=== PATIENT | male | born 1975 | race Hispanic/Latino ===

== ENCOUNTER 2020-02-08 16:55 | Emergency (ER) | payer SELFPAY ==
[2020-02-08 17:48] LABS: Basophils % 0.7 % (0-1.3); Hematocrit 47.8 % (39.6-49.0); Lymphocytes % 37.5 % (15.3-44.8); MPV 10.7 fL (7.6-11.3); RBC Red Blood Cell Count 5.16 M/uL (4.33-5.43)
[2020-02-08] MEDS ORDERED: NA CHLORIDE 0.9% 1,000 ML ONE ×2 (17:53→18:33)
[2020-02-08 17:57] LABS: Urine Blood NEGATIVE (NEG); Urine Glucose 2+ (NEG); Urine Protein NEGATIVE (NEG)
[2020-02-08 18:01] LABS: BUN Blood Urea Nitrogen 15 mg/dL (7-18); Bicarbonate 29 mmol/L (21-32); Potassium 4.3 mmol/L (3.5-5.1); Sodium Level 134 mmol/L (136-145)
[2020-02-08 18:02] LABS: Glucose Level 536 mg/dL (74-106)
[2020-02-08] MEDS ORDERED: INSULIN -REGULAR HUMAN 50 UNIT/0.5 ML ML ONE ×2 (18:34→19:36)
--- NOTE | 2020-02-08 20:52 | ER ---
Nurse's Notes [facility] Name: Kostas Castelan Age: 44 yrs Sex: Male : 1975 Arrival Date: 02/08/2020 Time: 16:58 Bed 20 Private MD: Diagnosis: Type 2 diabetes mellitus with hyperglycemia Presentation: 02/07 16:58 Chief complaint: Patient states: urinary frequency and excessive thirst x 2.5 weeks. Pt ss was seen in clinic today and had bgl >500. Coronavirus screen: The patient has NOT traveled to a country currently being monitored by the [facility] within the last 14 days. Proceed with normal triage procedures. Ebola Screen: Patient denies exposure to infectious person. Patient denies travel to an Ebola-affected area in the 21 days before illness onset. Initial Sepsis Screen: Does the patient meet any 2 criteria? No. Patient's initial sepsis screen is negative. Does the patient have a suspected source of infection? No. Patient's initial sepsis screen is negative. Risk Assessment: Do you want to hurt yourself or someone else? Patient reports no desire to harm self or others. 16:58 Method Of Arrival: Ambulatory ss 16:58 Acuity: ANA MARIA 3 ss 18:51 Onset of symptoms is unknown. ae4 Historical: - Allergies: 17:29 No Known Allergies; ss - Home Meds: 17:29 None [Active]; ss - PMHx: 17:29 None; ss - PSHx: 17:29 None; ss - Immunization history:: Adult Immunizations up to date. - Social history:: Smoking status: Patient denies any tobacco usage or history of. Screenin:50 Abuse screen: Denies threats or abuse. Nutritional screening: No deficits noted. ae4 Provided teaching on diabetic diet.. Tuberculosis screening: No symptoms or risk factors identified. Fall Risk None identified. Assessment: 17:04 General: Appears in no apparent distress. comfortable, Behavior is calm, cooperative. ae4 Pain: Denies pain. Neuro: Level of Consciousness is awake, alert, obeys commands, Oriented to person, place, time, situation, Appropriate for age. Cardiovascular: Heart tones S1 S2 present Patient's skin is warm and dry. Respiratory: Airway is patent Respiratory effort is even, unlabored, Respiratory pattern is regular, symmetrical, Breath sounds are clear bilaterally. GI: Abdomen is round non-distended, Bowel sounds present X 4 quads. Abd is soft and non tender. : Reports urinary frequency. EENT: No signs and/or symptoms were reported regarding the EENT system. Derm: No signs and/or symptoms reported regarding the dermatologic system. Musculoskeletal: No signs and/or symptoms reported regarding the musculoskeletal system. 19:15 Reassessment: Patient appears in no apparent distress at this time. Patient and/or ae4 family updated on plan of care and expected duration. Pain level reassessed. Patient states feeling better. 21:18 Reassessment: Patient appears in no apparent distress at this time. Patient is alert, lp1 oriented x 3, equal unlabored respirations, skin warm/dry/pink. Patient states understanding of discharge instruction and recommended follow up with PCP, list of PCP's given. Vital Signs: 16:58 BP 114 / 86; Pulse 84; Resp 17; Temp 97.4(TE); Pulse Ox 98% on R/A; ss 18:47 BP 133 / 78; Pulse 65; Resp 19; Pulse Ox 97% on R/A; ae4 20:29 BP 104 / 77; Pulse 77; Resp 18; Pulse Ox 99% on R/A; ae4 21:18 BP 119 / 76; Pulse 82; Resp 18; Temp 97.9(O); Pulse Ox 99% on R/A; lp1 ED Course: 16:58 Patient arrived in ED. mr 16:59 Yessenia Appiah [facility]-C [facility] kb 16:59 Jas Cordova MD is Attending Physician. kb 17:28 Triage completed. ss 17:29 Arm band placed on right wrist. ss 17:29 Patient has correct armband on for positive identification. Bed in low position. Call ae4 light in reach. Adult w/ patient. child monitor on. Pulse ox on. NIBP on. 17:30 Brendan Mello, LEFTY is Primary Nurse. ae4 21:19 No provider procedures requiring assistance completed. 20g IV to R AC DC'd. lp1 Administered Medications: 17:50 Drug: NS 0.9% 1000 ml Route: IV; Rate: 1000 ml; Site: right antecubital; ae4 18:30 Follow up: IV Status: Completed infusion; IV Intake: 1000ml ae4 18:30 Drug: Insulin Regular Human 5 units {Co-Signature: ss (Natividad Kearney RN).} Route: IVP; ae4 Site: right antecubital; 19:25 Follow up: Response: Blood sugar is lowered; 465 ae4 18:30 Drug: NS 0.9% 1000 ml Route: IV; Rate: 1000 ml; Site: right antecubital; ae4 19:15 Follow up: IV Status: Completed infusion; IV Intake: 1000ml ae4 19:34 Drug: Insulin Regular Human 5 units {Co-Signature: lp1 (Mana Perdomo RN).} Route: IVP; ae4 Site: right antecubital; 20:29 Follow up: Response: Blood sugar is lowered; FSBS 260 ae4 Point of Care Testing: Blood Glucose: 19:07 Blood Glucose: 465 mg/dL; ae4 20:29 Blood Glucose: 260 mg/dL; ae4 Ranges: Intake: 18:30 IV: 1000ml; Total: 1000ml. ae4 19:15 IV: 1000ml; Total: 2000ml. ae4 Outcome: 20:52 Discharge ordered by . kb 21:19 Discharged to home ambulatory, with family. lp1 21:19 Condition: good 21:19 Discharge instructions given to patient, Instructed on discharge instructions, follow up and referral plans. medication usage, Demonstrated understanding of instructions, follow-up care, medications, Prescriptions given X 1. 21:20 Patient left the ED. lp1 Signatures: Yessenia Appiah, PRODUCTION CREW SUPERVISOR-C PRODUCTION CREW SUPERVISOR-Neema Silvia Matthew Natividad Kearney RN RN ss Mana Perdomo RN RN lp1 Brendan Mello RN RN ae4 Natividad Kearney RN ss Mana Perdomo RN lp1
--- NOTE | 2020-02-08 20:52 | EDPHYS ---
Physician Documentation [facility] Name: Kostas Castelan Age: 44 yrs Sex: Male : 1975 Arrival Date: 02/08/2020 Time: 16:58 Bed 20 Private MD: ED Physician Jas Cordova HPI: 02/07 17:21 This 44 yrs old Male presents to ER via Unassigned with complaints of Urinary kb Problem. 17:25 The patient presents with urinary symptoms, urinary frequency. Onset: The kb symptoms/episode began/occurred 2.5 week(s) ago. Modifying factors: The symptoms are alleviated by nothing, the symptoms are aggravated by nothing. Associated signs and symptoms: The patient has no apparent associated signs or symptoms, Pertinent negatives: dysuria, fever. Severity of symptoms: At their worst the symptoms were moderate, in the emergency department the symptoms are unchanged. The patient has not experienced similar symptoms in the past. The patient has been recently seen by a physician: at a clinic, earlier today, with similar presenting complaints, and apparently given a diagnosis of hyperglycemia. Pt reports urinary frequency for 2.5 weeks. States he went to the [facility] today and they said his sugar was high and he needed to come to the ER for evaluation. Pt has no history of diabetes, but mother and sister both have it. . Historical: - Allergies: 17:29 No Known Allergies; ss - Home Meds: 17:29 None [Active]; ss - PMHx: 17:29 None; ss - PSHx: 17:29 None; ss - Immunization history:: Adult Immunizations up to date. - Social history:: Smoking status: Patient denies any tobacco usage or history of. ROS: 17:24 Constitutional: Negative for fever, chills, and weight loss, ENT: Negative for injury, kb pain, and discharge, Neck: Negative for injury, pain, and swelling, Cardiovascular: Negative for chest pain, palpitations, and edema, Respiratory: Negative for shortness of breath, cough, wheezing, and pleuritic chest pain, Abdomen/GI: Negative for abdominal pain, nausea, vomiting, diarrhea, and constipation, Back: Negative for injury and pain, MS/Extremity: Negative for injury and deformity, Skin: Negative for injury, rash, and discoloration, Neuro: Negative for headache, weakness, numbness, tingling, and seizure. 17:24 : Positive for urinary frequency. Exam: 17:24 Constitutional: This is a well developed, well nourished patient who is awake, alert, kb and in no acute distress. Head/Face: Normocephalic, atraumatic. Neck: Trachea midline, no thyromegaly or masses palpated, and no cervical lymphadenopathy. Supple, full range of motion without nuchal rigidity, or vertebral point tenderness. No Meningismus. Chest/axilla: Normal chest wall appearance and motion. Nontender with no deformity. No lesions are appreciated. Cardiovascular: Regular rate and rhythm with a normal S1 and S2. No gallops, murmurs, or rubs. Normal PMI, no JVD. No pulse deficits. Respiratory: Lungs have equal breath sounds bilaterally, clear to auscultation and percussion. No rales, rhonchi or wheezes noted. No increased work of breathing, no retractions or nasal flaring. Abdomen/GI: Soft, non-tender, with normal bowel sounds. No distension or tympany. No guarding or rebound. No evidence of tenderness throughout. Skin: Warm, dry with normal turgor. Normal color with no rashes, no lesions, and no evidence of cellulitis. MS/ Extremity: Pulses equal, no cyanosis. Neurovascular intact. Full, normal range of motion. Neuro: Awake and alert, GCS 15, oriented to person, place, time, and situation. Cranial nerves II-XII grossly intact. Motor strength 5/5 in all extremities. Sensory grossly intact. Cerebellar exam normal. Normal gait. 18:45 ECG was reviewed by the Attending Physician. kb Vital Signs: 16:58 BP 114 / 86; Pulse 84; Resp 17; Temp 97.4(TE); Pulse Ox 98% on R/A; ss 18:47 BP 133 / 78; Pulse 65; Resp 19; Pulse Ox 97% on R/A; ae4 20:29 BP 104 / 77; Pulse 77; Resp 18; Pulse Ox 99% on R/A; ae4 21:18 BP 119 / 76; Pulse 82; Resp 18; Temp 97.9(O); Pulse Ox 99% on R/A; lp1 MDM: 17:04 Patient medically screened. kb 17:24 Data reviewed: vital signs, nurses notes. Data interpreted: Pulse oximetry: on room air kb is 100 %. Interpretation: normal. 20:49 Counseling: I had a detailed discussion with the patient and/or guardian regarding: the kb historical points, exam findings, and any diagnostic results supporting the discharge/admit diagnosis, lab results, the need for outpatient follow up, a family practitioner, to return to the emergency department if symptoms worsen or persist or if there are any questions or concerns that arise at home. 02/07 17:24 Order name: Glucose, Ancillary Testing; Complete Time: 17:27 EDMS 02/07 17:28 Order name: CBC with Diff; Complete Time: 17:55 kb 02/07 17:28 Order name: Basic Metabolic Panel; Complete Time: 18:05 kb 02/07 17:28 Order name: Acetone, Serum; Complete Time: 18:05 kb 02/07 17:47 Order name: Urine Dipstick--Ancillary (enter results); Complete Time: 17:57 eb 02/07 17:30 Order name: EKG; Complete Time: 17:30 kb 02/07 18:05 Order name: Hemoglobin A1c; Complete Time: 18:32 EDMS 02/07 19:19 Order name: Glucose, Ancillary Testing; Complete Time: 19:22 EDMS 02/07 20:40 Order name: Glucose, Ancillary Testing EDNC 02/07 17:28 Order name: IV Start; Complete Time: 17:31 kb 02/07 17:28 Order name: Urine Dipstick-Ancillary (obtain specimen); Complete Time: 17:58 kb 02/07 17:30 Order name: EKG - Nurse/Tech; Complete Time: 18:41 kb EC:45 Rate is 59 beats/min. Rhythm is regular. QRS [place] is Normal. [place] interval is normal at kb 150 msec. QRS interval is normal at 86 msec. QT interval is normal at 392 msec. Administered Medications: 17:50 Drug: NS 0.9% 1000 ml Route: IV; Rate: 1000 ml; Site: right antecubital; ae4 18:30 Follow up: IV Status: Completed infusion; IV Intake: 1000ml ae4 18:30 Drug: Insulin Regular Human 5 units {Co-Signature: ss (Natividad Kearney RN).} Route: IVP; ae4 Site: right antecubital; 19:25 Follow up: Response: Blood sugar is lowered; 465 ae4 18:30 Drug: NS 0.9% 1000 ml Route: IV; Rate: 1000 ml; Site: right antecubital; ae4 19:15 Follow up: IV Status: Completed infusion; IV Intake: 1000ml ae4 19:34 Drug: Insulin Regular Human 5 units {Co-Signature: lp1 (Mana Perdomo RN).} Route: IVP; ae4 Site: right antecubital; 20:29 Follow up: Response: Blood sugar is lowered; FSBS 260 ae4 Point of Care Testing: Blood Glucose: 19:07 Blood Glucose: 465 mg/dL; ae4 20:29 Blood Glucose: 260 mg/dL; ae4 Ranges: Critical Glucose Levels:Adult <50 mg/dl or >400 mg/dl <40 mg/dl or >180 mg/dl Disposition: 02/08/20 20:52 Discharged to Home. Impression: Type 2 diabetes mellitus with hyperglycemia. - Condition is Stable. - Discharge Instructions: Type 2 Diabetes Mellitus, Diagnosis, Adult, Basic Carbohydrate Counting for Diabetes Mellitus, Diabetes Mellitus and Food. - Prescriptions for Metformin 500 mg Oral Tablet - take 1 tablet by ORAL route 2 times per day .; 40 tablet. - Medication Reconciliation Form, Thank You Letter, Antibiotic Education, Prescription Opioid Use form. - Work release form (02/09/20 12:08). ss - Follow up: Emergency Department; When: As needed; Reason: Worsening of condition. Follow up: Private Physician; When: 2 - 3 days; Reason: Recheck today's complaints, Continuance of care, Re-evaluation by your physician. Addendum: 02/11/2020 10:51 Co-signature as Attending Physician, Jas Cordova MD I agree with the assessment and k dr plan of care. Signatures: Dispatcher [employer] EDNC Yessenia Appiah, SERVER SYSTEMS ADMINISTRATOR-C SERVER SYSTEMS ADMINISTRATOR-Jas Laguna MD MD kdr Smirch, [place], LEFTY RN ss Mana Perdomo, LEFTY RN lp1 Brendan Mello RN RN ae4 Natividad Kearney RN ss Mana Perdomo RN lp1 Corrections: (The following items were deleted from the chart) 02/07 17:57 17:56 HEMOGLOBIN A1C+CHEM A1C.LAB.BRZ ordered. [facility] 21:20 20:52 02/08/2020 20:52 Discharged to Home. Impression: Type 2 diabetes mellitus with lp1 hyperglycemia. Condition is Stable. Forms are Medication Reconciliation Form, Thank You Letter, Antibiotic Education, Prescription Opioid Use. Follow up: Emergency Department; When: As needed; Reason: Worsening of condition. Follow up: Private Physician; When: 2 - 3 days; Reason: Recheck today's complaints, Continuance of care, Re-evaluation by your physician. kb
[2020-02-08 21:32] VITALS: O2SAT 99
[2020-02-08 21:34] VITALS: BP 119/76; TEMP 97.9
--- NOTE | 2020-02-10 09:15 | EKG ---
Test Date: 2020-02-08 Test Time: 18:24:34 Hadoop Application Developer: JAKE MEASUREMENT RESULTS: Intervals: Rate: 59 [place]: 150 QRSD: 86 QT: 392 QTc: 388 [place]: P: 25 [place]: 150 QRS: 61 T: 25 INTERPRETIVE STATEMENTS: Sinus bradycardia Otherwise normal ECG Compared to ECG 05/25/2010 13:11:22 Sinus tachycardia no longer present Electronically Signed On 02-10-20 09:13:36 CDT by Jairo Lopez
== END 2020-02-08 21:20 | disposition home or self-care (01) ==
LOC: ER 16:55
DX: E11.65 Type 2 diabetes mellitus with hyperglycemia (principal)
CPT/HCPCS: 36415; 80048; 81003; 82010; 82947; 83036; 85025; 93005; 96361; 96374; 99284; J7030

== ENCOUNTER 2024-11-23 07:25 | Emergency (ER) | payer OTHER ==
--- OUTSIDE RECORDS SUMMARY | 2024-11-23 07:32 | XMS REPORT | Continuity of Care Document ---
Author Name Unknown Address [address] [facility] [address] [place] [address] [facility] thconnect Address [address] [facility] [address] [place] [address] Care Team Providers Care Coke Drawer Hand Name Role Phone Eleonora Reagan Primary Care Physician David Fraser Attending Clinician Unavailable Lenny Noonan Attending Clinician Unavailable Physician, No Primary or Family Admitting Clinic raquel Unavailable Payers Payer Name Policy Type Policy Number Effective Date Expirati on Date Source Problems Condition Name Condition Details Condition Category Status Onset Date Resolution Date Last Treatment Date Treating Clinician Comments Source [id number] Testicular hypofuncti on Problem [facility] [id number] Posthitis Problem Commo n [facility] [id number] Phimosis of penis Problem [facility] [id number] ED (erectile dysfunctio n) of organic origin Problem [facility] [id number] Acquired phimosis of penis Problem [facility] Allergies, Adverse Reactions, Alerts Allergy Name Allergy Type Status Severity Reaction(s) Onset Date Inactive Date Treating Clinician Comments Source No Known Allergie s DA Active U 08-03 00:00: 00 [facility] No Known Allergie s DA Active U 08-03 00:00: 00 [facility] Social History Social Habit Start Date Stop Date Quantity Comments Source History of Tobacco Use [facility] Sex Assigned At [facility] Smoking Status Start Date Stop Date Source Never Smoker [facility] Medications Ordered Medication Name Filled Medication Name Start Date Stop Date Current Medication? Ordering Clinician Indication Dosage Frequency Signature (SIG) Comments Components Source triamcinolo ne acetonide 0.1 % topical cream 2023-11 00:00: 00 Yes 1% Yuri Klein aspirin 81 mg tablet,monica yed release 2023-11 00:00: 00 Yes 1mg Yuri Klein metformin 1,000 mg tablet 2023-11 00:00: 00 Yes mg Yuri Klein Januvia 100 mg tablet 2023-11 00:00: 00 Yes 1mg Yuri Klein Jardiance 10 mg tablet 2023-11 00:00: 00 Yes 1mg Yuri Klein rosuvastati n 20 mg tablet 2023-11 00:00: 00 Yes 1mg Yuri Klein Januvia 100 mg tablet 2023-11 0 00:00: 00 Yes 1mg Yuri Klein glipizide 10 mg tablet 2023-11 0- 00:00: 00 Yes 1mg Yuri Klein metformin 1,000 mg tablet 2023-11 0- 00:00: 00 Yes 1mg Yuri Klein rosuvastati n 20 mg tablet 2023-11 0- 00:00: 00 Yes 1mg Yuri Klein Januvia 100 mg tablet 08-02 00:00: 00 Yes 1mg Yuri Klein glipizide 10 mg tablet 08-02 00:00: 00 Yes 1mg Yuri Klein metformin 1,000 mg tablet 08-02 00:00: 00 Yes 1mg Yuri Klein prednisone 10 mg tablet -04 00:00: 00 Yes 1mg Yuri Klien amoxicillin 875 mg-potassiu m clavulanate 125 mg tablet 05-01 00:00: 00 Yes 1mg Yuri Klein ibuprofen 800 mg tablet 05-01 00:00: 00 Yes 1mg Yuri Klein metformin 1,000 mg tablet 01-25 00:00: 00 Yes mg Yuri Klein Clotrimazol e-Betametha sone 1-0.05 % Clotrimazol e-Betametha sone 1-0.05 % 12-07 00:00: 00 No 1{appli cation} BID Clotrimazo le-Betamet hasone 1-0.05 % TAKE 1 TABLET TWICE DAILY. 2022-11 00:00: 00 Yes 1000 Yuri Klein TAKE 1 TABLET DAILY. 2022-11 00:00: 00 Yes 100 Yuri Klein TAKE 1 TABLET BY MOUTH ONCE DAILY 2022-11 00:00: 00 01-25 00:00 :00 No 25 Yuri Klein TAKE ONE (1) TABLET(S) BY MOUTH TWICE A DAY. 01-21 00:00: 00 Yes Yuri Klein TAKE ONE (1) TABLET(S) BY MOUTH DAILY. 01-21 00:00: 00 Yes Yuri Klein Dose Unknown 2020-11 0 00:00: 00 Yes Yuri Klein Dose Unknown 08-14 00:00: 00 Yes Yuri Klein Dose Unknown 08-14 00:00: 00 Yes Yuri Klein metformin 500 mg tablet 12-26 00:00: 00 Yes 1mg Yuri Klein glipizide 5 mg tablet 12-26 00:00: 00 Yes 1mg Yuri Klein ibuprofen 800 mg tablet 12-26 00:00: 00 Yes 1mg Yuri Klein bupropion HCl XL 150 mg 24 hr tablet, extended release 08-09 00:00: 00 Yes 1mg Yuri Klein metformin 500 mg tablet 08-09 00:00: 00 Yes 1mg Yuri Klein glipizide 5 mg tablet 08-09 00:00: 00 Yes 1mg Yuri Klein metformin 500 mg tablet 05-08 00:00: 00 Yes 1mg Yuri Klein glipizide 5 mg tablet 05-08 00:00: 00 Yes 1mg Yuri Klein metformin 500 mg tablet 03-27 00:00: 00 Yes 1mg Yuri Klein glipizide 5 mg tablet 03-27 00:00: 00 Yes 1mg Yuri Klein glipizide 5 mg tablet 02-13 00:00: 00 Yes 1mg Yuri Klein simvastatin 20 mg tablet 08-04 00:00: 00 Yes 1mg Yuri Klein pantoprazol e 40 mg tablet,monica yed release 08-02 00:00: 00 Yes 1mg Yuri Klein clarithromy rossy 500 mg tablet 08-02 00:00: 00 Yes 1mg Yuri Klein metronidazo le 500 mg tablet 08-02 00:00: 00 Yes 1mg Yuri Klein pravastatin 20 mg tablet 04-12 00:00: 00 Yes 1mg Yuri Klein Prozac 20 mg capsule 2014-11 00:00: 00 Yes 1mg Yuri Klein metFORMIN HCl 500 MG metFORMIN HCl 500 MG No 1{table t_with_ a_meal} QD metFORMIN HCl 500 MG Immunizations Ordered Immunization Name Filled Immunization Name Date Status Comments Source Moderna COVID-19 Vaccine Moderna COVID-19 Vaccine 2022-06-22 00:00:00 Completed Yuri Klein Moderna COVID-19 Vaccine Moderna COVID-19 Vaccine 2021-03-17 00:00:00 Completed Yuri Klein Moderna COVID-19 Vaccine Moderna COVID-19 Vaccine 2021-02-11 00:00:00 Completed Yuri Klein Vital Signs Vital Name Observation Time Observation Value Comments S ource height 2023-12-07 16:45:00 69 [in_i] Commo n [facility] weight 2023-12-07 16:45:00 189.0 [lb_av] Co mmon [facility] temperature 2023-12-07 16:45:00 98.3 [degF] Com mon [facility] bmi 2023-12-07 16:45:00 27.91 kg/m2 Comm on [facility] oximetry 2023-12-07 16:45:00 98 % Commo n [facility] respiratory rate 2023-12-07 16:45:00 18 /min Common [facility] blood pressure systolic 2023-12-07 16:45:00 127 mm[Hg] Common [facility] blood pressure diastolic 2023-12-07 16:45:00 86 mm[Hg] Common [facility] BP Systolic 2024-10-26 10:57:00 125 mm[Hg] Step hen F Ernie BP Diastolic 2024-10-26 10:57:00 87 mm[Hg] [place] phen F Ernie Weight Measured 2024-10-26 10:57:00 186.00 pounds Yuri F Ernie Height Measured 2024-10-26 10:57:00 69.00 inches Yuri F Ernie Body Temperature 2024-10-26 10:57:00 97.00 degrees Yuri F Ernie Heart Rate 2024-10-26 10:57:00 79.00 /min Maria Fernanda en F Ernie Respiratory Rate 2024-10-26 10:57:00 16.00 /min Yuri F Ernie BP Systolic 2024-10-17 09:19:00 114 mm[Hg] Step hen F Ernie BP Diastolic 2024-10-17 09:19:00 69 mm[Hg] [place] phen F Ernie Weight Measured 2024-10-17 09:19:00 182.40 pounds Yuri F Ernie Height Measured 2024-10-17 09:19:00 69.00 inches Yuri F Ernie Body Temperature 2024-10-17 09:19:00 98.20 degrees Yuri F Ernie Heart Rate 2024-10-17 09:19:00 76.00 /min Maria Fernanda en F Renie Respiratory Rate 2024-10-17 09:19:00 18.00 /min Yuri F Ernie BP Systolic 2024-10-11 11:39:00 142 mm[Hg] Step hen F Ernie BP Diastolic 2024-10-11 11:39:00 79 mm[Hg] [place] phen F Ernie Weight Measured 2024-10-11 11:39:00 182.30 pounds Yuri F Ernie Height Measured 2024-10-11 11:39:00 69.00 inches Yuri F Ernie Body Temperature 2024-10-11 11:39:00 98.20 degrees Yuri F Ernie Heart Rate 2024-10-11 11:39:00 80.00 /min Maria Fernanda en F Ernie Respiratory Rate 2024-10-11 11:39:00 16.00 /min Yuri F Ernie BP Systolic 2024-09-28 16:54:00 142 mm[Hg] Step hen F Ernie BP Diastolic 2024-09-28 16:54:00 79 mm[Hg] [place] phen F Ernie Weight Measured 2024-09-28 16:54:00 183.60 pounds Yuri F Ernie Height Measured 2024-09-28 16:54:00 69.00 inches Yuri F Ernie Body Temperature 2024-09-28 16:54:00 98.20 degrees Yuri F Ernie Heart Rate 2024-09-28 16:54:00 80.00 /min Maria Fernanda en F Ernie Respiratory Rate 2024-09-28 16:54:00 16.00 /min Yuri F Ernie BP Systolic 2024-08-31 17:40:00 126 mm[Hg] Step hen F Ernie BP Diastolic 2024-08-31 17:40:00 86 mm[Hg] [place] phen F Ernie Weight Measured 2024-08-31 17:40:00 187.00 pounds Yuri F Ernie Height Measured 2024-08-31 17:40:00 69.00 inches Yuri F Ernie Body Temperature 2024-08-31 17:40:00 97.90 degrees Yuri F Ernie Heart Rate 2024-08-31 17:40:00 76.00 /min Maria Fernanda en F Ernie Respiratory Rate 2024-08-31 17:40:00 18.00 /min Yuri F Ernie BP Systolic 2024-08-02 17:28:00 119 mm[Hg] Step hen F Ernie BP Diastolic 2024-08-02 17:28:00 86 mm[Hg] [place] phen F Ernie Weight Measured 2024-08-02 17:28:00 187.00 pounds Yuri F Ernie Height Measured 2024-08-02 17:28:00 69.00 inches Yuri F Ernie Body Temperature 2024-08-02 17:28:00 98.20 degrees Yuri F Ernie Heart Rate 2024-08-02 17:28:00 82.00 /min Maria Fernanda en F Ernie Respiratory Rate 2024-08-02 17:28:00 18.00 /min Yuri F Ernie Height Measured 2024-05-01 09:07:00 69.00 inches Yuri F Ernie Body Temperature 2024-05-01 09:07:00 97.50 degrees Yuri F Ernie Heart Rate 2024-05-01 09:07:00 98.00 /min Maria Fernanda en F Ernie Respiratory Rate 2024-05-01 09:07:00 18.00 /min Yuri F Ernie BP Systolic 2024-05-01 09:07:00 120 mm[Hg] Step hen F Ernie BP Diastolic 2024-05-01 09:07:00 75 mm[Hg] [place] phen F Ernie Weight Measured 2024-05-01 09:07:00 184.80 pounds Yuri F Ernie BP Systolic 2023-10-28 17:01:00 146 mm[Hg] Step hen F Ernie BP Diastolic 2023-10-28 17:01:00 74 mm[Hg] [place] phen F Ernie Weight Measured 2023-10-28 17:01:00 186.60 pounds Yuri F Ernie Height Measured 2023-10-28 17:01:00 69.00 inches Yuri F Ernie Body Temperature 2023-10-28 17:01:00 98.20 degrees Yuri F Ernie Heart Rate 2023-10-28 17:01:00 82.00 /min Maria Fernanda en F Ernie Respiratory Rate 2023-10-28 17:01:00 18.00 /min Yuri F Ernie BP Systolic 2023-10-17 14:21:00 124 mm[Hg] Step hen F Ernie BP Diastolic 2023-10-17 14:21:00 67 mm[Hg] [place] phen F Ernie Weight Measured 2023-10-17 14:21:00 190.20 pounds Yuri F Ernie Height Measured 2023-10-17 14:21:00 69.00 inches Yuri F Ernie Body Temperature 2023-10-17 14:21:00 98.20 degrees Yuri F Ernie Heart Rate 2023-10-17 14:21:00 99.00 /min Maria Fernanda en F Ernie Respiratory Rate 2023-10-17 14:21:00 19.00 /min Yuri F Ernie BP Systolic 2021-08-14 16:38:00 139 mm[Hg] Step hen F Ernie BP Diastolic 2021-08-14 16:38:00 83 mm[Hg] [place] phen F Ernie Weight Measured 2021-08-14 16:38:00 218.00 pounds Yuri F Ernie Height Measured 2021-08-14 16:38:00 69.00 inches Yuri F Ernie Body Temperature 2021-08-14 16:38:00 98.40 degrees Yuri F Ernie Heart Rate 2021-08-14 16:38:00 74.00 /min Maria Fernanda en F Ernie Respiratory Rate 2021-08-14 16:38:00 Yuri F Ernie BP Systolic 2020-12-26 15:45:00 113 mm[Hg] Step hen F Ernie BP Diastolic 2020-12-26 15:45:00 69 mm[Hg] [place] phen F Ernie Weight Measured 2020-12-26 15:45:00 218.40 pounds Yuri F Ernie Height Measured 2020-12-26 15:45:00 69.00 inches Yuri F Ernie Body Temperature 2020-12-26 15:45:00 98.70 degrees Yuri F Ernie Heart Rate 2020-12-26 15:45:00 75.00 /min Maria Fernanda en F Ernie Respiratory Rate 2020-12-26 15:45:00 Yuri F Ernie BP Systolic 2020-08-09 09:01:00 116 mm[Hg] Step hen F Ernie BP Diastolic 2020-08-09 09:01:00 82 mm[Hg] [place] phen F Ernie Weight Measured 2020-08-09 09:01:00 210.00 pounds Yuri F Ernie Height Measured 2020-08-09 09:01:00 69.00 inches Yuri F Ernie Body Temperature 2020-08-09 09:01:00 98.30 degrees Yuri F Ernie Heart Rate 2020-08-09 09:01:00 80.00 /min Maria Fernanda en F Ernie Respiratory Rate 2020-08-09 09:01:00 18.00 /min Yuri F Ernie BP Systolic 2020-03-27 09:18:00 110 mm[Hg] Step hen F Ernie BP Diastolic 2020-03-27 09:18:00 72 mm[Hg] [place] phen F Ernie Weight Measured 2020-03-27 09:18:00 210.60 pounds Yuri F Ernie Height Measured 2020-03-27 09:18:00 69.00 inches Yuri F Ernie Body Temperature 2020-03-27 09:18:00 98.60 degrees Yuri F Ernie Heart Rate 2020-03-27 09:18:00 69.00 /min Maria Fernanda en F Ernie Respiratory Rate 2020-03-27 09:18:00 17.00 /min Yuri F Ernie BP Systolic 2020-02-14 16:11:00 119 mm[Hg] Step hen F Ernie BP Diastolic 2020-02-14 16:11:00 82 mm[Hg] [place] phen F Ernie Weight Measured 2020-02-14 16:11:00 210.60 pounds Yuri F Ernie Height Measured 2020-02-14 16:11:00 69.00 inches Yuri F Ernie Body Temperature 2020-02-14 16:11:00 97.80 degrees Yuri F Ernie Heart Rate 2020-02-14 16:11:00 78.00 /min Maria Fernanda en F Ernie Respiratory Rate 2020-02-14 16:11:00 16.00 /min Yuri F Ernie BP Systolic 2020-02-08 14:17:00 116 mm[Hg] Step hen F Ernie BP Diastolic 2020-02-08 14:17:00 77 mm[Hg] [place] phen F Ernie Weight Measured 2020-02-08 14:17:00 210.40 pounds Yuri F Ernie Height Measured 2020-02-08 14:17:00 69.00 inches Yuri F Ernie Body Temperature 2020-02-08 14:17:00 98.90 degrees Yuri F Ernie Heart Rate 2020-02-08 14:17:00 87.00 /min Maria Fernanda en F Ernie Respiratory Rate 2020-02-08 14:17:00 16.00 /min Yuri F Ernie BP Systolic 2018-08-02 13:11:00 129 mm[Hg] Step hen F Ernie BP Diastolic 2018-08-02 13:11:00 85 mm[Hg] [place] phen F Ernie Weight Measured 2018-08-02 13:11:00 219.20 pounds Yuri F Ernie Height Measured 2018-08-02 13:11:00 69.00 inches Yuri F Ernie Body Temperature 2018-08-02 13:11:00 98.30 degrees Yuri Klein Heart Rate 2018-08-02 13:11:00 74.00 /min Maria Fernanda Klein Respiratory Rate 2018-08-02 13:11:00 16.00 /min Yuri Klein Procedures Procedure Date / Time Performed Performing Clinicia n Source [id number] Ecg Routine Ecg W/least 12 Lds W/i r 2018-08-02 00:00:00 Yuri Klein Ecg Routine Ecg W/least 12 Lds W/i r 2015-05-07 00:00:00 Yuri Klein Ecg Routine Ecg W/least 12 Lds W/i r 2015-04-29 00:00:00 Yuri Klein Encounters Start Date/Time End Date/Time Encounter Type Admission Type Attending [facility] Care Department Encounter ID Source 2023-12-07 16:31:00 Outpatient David Fraser [facility] [id number] [facility] 2022-07-30 08:36:02 Outpatient David Fraser [facility] [id number] [facility] 2024-10-26 10:46:24 2024-10-26 10:46:24 Outpatient [facility] [id number] Yuri Klein 2024-10-26 00:00:00 2024-10-26 00:00:00 Outpatient Visit [facility] [id number] Yuri Klein 2024-10-17 09:06:34 2024-10-17 09:06:34 Outpatient [facility] [id number] Yuri Klein 2024-10-17 00:00:00 2024-10-17 00:00:00 Outpatient Visit [facility] [id number] Yuri Klein 2024-09-28 17:01:21 2024-09-28 17:01:21 Outpatient [facility] [id number] Yuri Klein 2024-09-28 00:00:00 2024-09-28 00:00:00 Outpatient Visit [facility] [id number] Yuri Klein 2024-08-31 17:34:52 2024-08-31 17:34:52 Outpatient SFA [facility] [id number] Yuri Klein 2024-08-31 00:00:00 2024-08-31 00:00:00 Outpatient Visit [facility] [id number] Yuri Klein 2024-08-02 17:22:46 2024-08-02 17:22:46 Outpatient SFA [facility] [id number] Yuri Klein 2024-05-01 09:06:38 2024-05-01 09:06:38 Outpatient SFA [facility] [id number] Yuri Klein 2024-05-01 00:00:00 2024-05-01 00:00:00 Outpatient Visit [facility] [id number] Yuri Klein 2023-12-07 00:00:00 2023-12-07 00:00:00 OFFICE VISIT ESTAB PT LEVEL 4 [facility] [id number] [facility] 2023-11-18 14:05:30 2023-11-18 14:05:30 Outpatient SFA [facility] [id number] Yuri Klein 2023-10-28 16:34:57 2023-10-28 16:34:57 Outpatient SFA [facility] [id number] Yuri Klein 2023-10-24 11:50:29 2023-10-24 11:50:29 Outpatient SFA [facility] [id number] Yuri Klein 2023-10-17 14:09:26 2023-10-17 14:09:26 Outpatient SFA [facility] [id number] Yuri Klein 2022-04-14 11:49:00 2022-04-14 16:15:00 Emergency EM Lenny Noonan [facility] [id number] [facility] 2022-04-14 11:49:00 2022-04-14 16:15:00 Emergency EM Lenny Noonan [facility] [id number] [facility] Results Test Description Test Time Test Comments Results Result Co mments Source Yuri KleinCBC W/AUTO [id number] 00:00:00* Test Item Value Reference Range Interpretation Comme nts WBC (test code = 1001) 5.0 K/UL RBC (test code = 1002) 5.71 M/UL HEMOGLOBIN (test code = 1003) 17.3 G/DL HEMATOCRIT (test code = 1004) 52.2 % MCV (test code = 1005) 91.4 fL MCH (test code = 1006) 30.3 PG MCHC (test code = 1007) 33.1 G/DL RDW (test code = 1038) 12.4 % NEUTROPHILS (test code = 1008) 57.9 % LYMPHOCYTES (test code = 1010) 32.3 % MONOCYTES (test code = 1011) 6.6 % EOSINOPHILS (test code = 1012) 2.0 % BASOPHILS (test code = 1013) 0.8 % IMMATURE GRANULOCYTES (test code = 1036) 0.4 % NUCLEATED RBCS (test code = 1065) 0.0 /100WBC'S PLATELET COUNT (test code = 1015) 211 K/UL ABSOLUTE NEUTROPHILS (test c ode = 1066) 2.91 K/UL ABSOLUTE LYMPHOCYTES (test c ode = 1067) 1.62 K/UL ABSOLUTE MONOCYTES (test cod e = 1068) 0.33 K/UL ABSOLUTE EOSINOPHILS (test c ode = 1040) 0.10 K/UL ABSOLUTE BASOPHILS (test cod e = 1069) 0.04 K/UL ABS IMMATURE GRANULOCYTES (t est code = 1020) 0.02 K/UL ABS NUCLEATED RBCS (test cod e = 95475) 0.00 K/UL Yuri KleinHIV 1/2 4TH GEN, RFLX [id number] 00:00:00* Test Item Value Reference Range Interpretation Comme nts HIV 1/2 4TH GEN, RFLX CONF ( test code = 3514) NON-REACTIVE Yuri KleinRPR REFLEX TO T. PALLIDUM - [id number] 00:00:00* Test Item Value Reference Range Interpretation Comme nts RPR (test code = 16447) NON-REACTIVE RPR TITER (test code = 3500) NOT INDIC. TITER Yuri KleinVITAMIN [id number] 00:00:00* Test Item Value Reference Range Interpretation Comme mitul VITAMIN B-12 (test code = 2840) 735 PG/ML Yuri KelinHEMOGLOBIN [id number] 00:00:00* Test Item Value Reference Range Interpretation Comme mitul HEMOGLOBIN A1c (test code = 16884) 12.4 % Yuri KleinHEMOGLOBIN [id number] 00:00:00* Test Item Value Reference Range Interpretation Comme mitul HEMOGLOBIN A1c (test code = 25972) 12.4 % Yuri KleinCOMPREHENSIVE METABOLIC [id number] 00:00:00* Test Item Value Reference Range Interpretation Comme nts GLUCOSE (test code = 2217) 424 MG/DL BUN (test code = 2208) 15 MG/DL CREATININE (test code = 2214) 1.12 MG/DL eGFR (2020 CKD-EPI) (test co de = 81043) 81 ML/MIN/1.73 CALC BUN/CREAT (test code = 2235) 13 RATIO SODIUM (test code = 2231) 136 MEQ/L POTASSIUM (test code = 2228) 4.9 MEQ/L CHLORIDE (test code = 2215) 92 MEQ/L CARBON DIOXIDE (test code = 2206) 29 MEQ/L CALCIUM (test code = 2209) 10.6 MG/DL PROTEIN, TOTAL (test code = 2229) 7.4 G/DL ALBUMIN (test code = 2201) 4.8 G/DL CALC GLOBULIN (test code = 2240) 2.6 G/DL CALC A/G RATIO (test code = 2234) 1.8 RATIO BILIRUBIN, TOTAL (test code = 2207) 0.4 MG/DL ALKALINE PHOSPHATASE (test code = 2204) 97 U/L AST (test code = 2218) 11 U/L ALT (test code = 2219) 15 U/L Yuri KleinLIPID [id number] 00:00:00* Test Item Value Reference Range Interpretation Comme nts CHOLESTEROL (test code = 2210) 352 MG/DL TRIGLYCERIDES (test code = 2232) 328 MG/DL HDL CHOLESTEROL (test code = 2220) 48 MG/DL CALC LDL CHOL (test code = 2237) 248 MG/DL RISK RATIO LDL/HDL (test cod e = 2238) 5.17 RATIO Yuri Beverly AustinALBUMIN/CREATININE RATIO, RANDOM [id number] 00:00:00* Test Item Value Reference Range Interpretation Comme nts CREATININE, URINE, CONC. (te st code = 2072) 76.9 MG/DL ALBUMIN, URINE, RANDOM (test code = 16030) 0.2 MG/DL CALC ALBUMIN/CREAT, RND (bev t code = 08623) 3 MG/G Yuri KleinCOMPREHENSIVE METABOLIC [id number] 00:00:00* Test Item Value Reference Range Interpretation Comme nts GLUCOSE (test code = 2217) 424 MG/DL BUN (test code = 2208) 15 MG/DL CREATININE (test code = 2214) 1.12 MG/DL eGFR (2020 CKD-EPI) (test co de = 90396) 81 ML/MIN/1.73 CALC BUN/CREAT (test code = 2235) 13 RATIO SODIUM (test code = 2231) 136 MEQ/L POTASSIUM (test code = 2228) 4.9 MEQ/L CHLORIDE (test code = 2215) 92 MEQ/L CARBON DIOXIDE (test code = 2206) 29 MEQ/L CALCIUM (test code = 2209) 10.6 MG/DL PROTEIN, TOTAL (test code = 2229) 7.4 G/DL ALBUMIN (test code = 2201) 4.8 G/DL CALC GLOBULIN (test code = 2240) 2.6 G/DL CALC A/G RATIO (test code = 2234) 1.8 RATIO BILIRUBIN, TOTAL (test code = 2207) 0.4 MG/DL ALKALINE PHOSPHATASE (test code = 2204) 97 U/L AST (test code = 2218) 11 U/L ALT (test code = 2219) 15 U/L Yuri KleinLIPID [id number] 00:00:00* Test Item Value Reference Range Interpretation Comme nts CHOLESTEROL (test code = 2210) 352 MG/DL TRIGLYCERIDES (test code = 2232) 328 MG/DL HDL CHOLESTEROL (test code = 2220) 48 MG/DL CALC LDL CHOL (test code = 2237) 248 MG/DL RISK RATIO LDL/HDL (test cod e = 2238) 5.17 RATIO Yuri Beverly AustinALBUMIN/CREATININE RATIO, RANDOM [id number] 00:00:00* Test Item Value Reference Range Interpretation Comme nts CREATININE, URINE, CONC. (te st code = 2072) 76.9 MG/DL ALBUMIN, URINE, RANDOM (test code = 30251) 0.2 MG/DL CALC ALBUMIN/CREAT, RND (bev t code = 43291) 3 MG/G Yuri KleinHEMOGLOBIN [id number] 07:05:36* Test Item Value Reference Range Interpretation Comme nts HEMOGLOBIN A1c (test code = 77989) 12.0 % 4.2-5.6 H [employer] GUIDELINES FOR HGB A1C: PREDIABETES/INCREASED RISK . . . . . . . 5.7-6.4% DIAGNOSIS OF DIABETES . . . . . . . . . >=6.5% WITH CONFIRMATION OR APPROPRIATE SYMPTOMS NOTE: ASSAY MAY BE AFFECTED BY HEMOGLOBINOPATHIES (SICKLE CELL ANEMIA, S-C DISEASE, OTHERS) OR ARTIFICIALLY LOWERED BY DECREASED RED CELL SURVIVAL (HEMOLYTIC ANEMIAS, BLOOD LOSS, ETC.). CONSIDER ALTERNATE TESTING OR LABORATORY CONSULTATION. UNLESS OTHERWISE INDICATED, ALL TESTING PERFORMED AT [facility] [address] [place] [address] FACTORY LABORER: NADIA CONDE M.D. CLIA NUMBER [id number] [facility] [place] [id number] COMPREHENSIVE METABOLIC [id number] 04:46:54* Test Item Value Reference Range Interpretation Comme nts GLUCOSE (test code = 2217) 371 MG/DL 70-99 H BUN (test code = 2208) 16 MG/DL 6-20 CREATININE (test code = 2214) 0.74 MG/DL 0.80-1.40 L eGFR (2020 CKD-EPI) (test code = 44511) 112 ML/MIN/1.73 >60 CALC BUN/CREAT (test code = 2235) 22 RATIO 6-28 SODIUM (test code = 2231) 136 MEQ/L 133-146 POTASSIUM (test code = 2228) 4.3 MEQ/L 3.5-5.4 CHLORIDE (test code = 2215) 96 MEQ/L 95-107 CARBON DIOXIDE (test code = 2206) 25 MEQ/L 19-31 CALCIUM (test code = 2209) 9.6 MG/DL 8.5-10.5 PROTEIN, TOTAL (test code = 2228) 6.9 G/DL 6.1-8.3 ALBUMIN (test code = 2200) 4.8 G/DL 3.5-5.2 CALC GLOBULIN (test code = 0) 2.1 G/DL 1.9-3.7 CALC A/G RATIO (test code = 2233) 2.3 RATIO 1.0-2.6 BILIRUBIN, TOTAL (test code = 2206) 0.5 MG/DL <=1.2 ALKALINE PHOSPHATASE (test code = 2203) 89 U/L 40-118 AST (test code = 221) 13 U/L 9-50 ALT (test code = 221) 20 U/L 5-50 CBC W/AUTO DIFF WITH [id number] 03:00:48* Test Item Value Reference Range Interpretation Comme nts WBC (test code = 1001) 6.9 K/UL 3.5-11.0 RBC (test code = 1002) 5.48 M/UL 4.50-6.10 HEMOGLOBIN (test code = 1003) 17.1 G/DL 13.5-17.0 H HEMATOCRIT (test code = 1004) 49.2 % 40.0-51.0 MCV (test code = 1005) 89.8 fL 80.0-99.0 MCH (test code = 1006) 31.2 PG 25.0-33.0 MCHC (test code = 1007) 34.8 G/DL 31.0-36.0 RDW (test code = 1038) 11.9 % 11.5-15.0 NEUTROPHILS (test code = 1008) 62.3 % LYMPHOCYTES (test code = 1010) 29.3 % MONOCYTES (test code = 1011) 6.7 % EOSINOPHILS (test code = 1012) 1.0 % BASOPHILS (test code = 1013) 0.4 % IMMATURE GRANULOCYTES (test code = 1036) 0.3 % NUCLEATED RBCS (test code = 1065) 0.0 /100 WBC'S See_Comment [Automated message] The system which generated this result transmitted reference range: 0.0. The reference range was not used to interpret this result as normal/abnormal. PLATELET COUNT (test code = 1015) 213 K/UL 130-400 ABSOLUTE NEUTROPHILS (test code = 1066) 4.30 K/UL 1.50-7.50 ABSOLUTE LYMPHOCYTES (test code = 1067) 2.02 K/UL 1.00-4.00 ABSOLUTE MONOCYTES (test code = 1068) 0.46 K/UL 0.20-1.00 ABSOLUTE EOSINOPHILS (test code = 1040) 0.07 K/UL 0.00-0.50 ABSOLUTE BASOPHILS (test code = 1069) 0.03 K/UL 0.00-0.20 ABS IMMATURE GRANULOCYTES (test code = 1020) 0.02 K/UL 0.00-0.10 ABS NUCLEATED RBCS (test code = 27080) 0.00 K/UL 0.00-0.11 HEMOGLOBIN [id number] 00:00:00* Test Item Value Reference Range Interpretation Comme nts HEMOGLOBIN A1c (test code = 83339) 12.0 % Yuri Beverly [place] W/AUTO [id number] 00:00:00* Test Item Value Reference Range Interpretation Comme nts WBC (test code = 1001) 6.9 K/UL RBC (test code = 1002) 5.48 M/UL HEMOGLOBIN (test code = 1003) 17.1 G/DL HEMATOCRIT (test code = 1004) 49.2 % MCV (test code = 1005) 89.8 fL MCH (test code = 1006) 31.2 PG MCHC (test code = 1007) 34.8 G/DL RDW (test code = 1038) 11.9 % NEUTROPHILS (test code = 1008) 62.3 % LYMPHOCYTES (test code = 1010) 29.3 % MONOCYTES (test code = 1011) 6.7 % EOSINOPHILS (test code = 1012) 1.0 % BASOPHILS (test code = 1013) 0.4 % IMMATURE GRANULOCYTES (test code = 1036) 0.3 % NUCLEATED RBCS (test code = 1065) 0.0 /100WBC'S PLATELET COUNT (test code = 1015) 213 K/UL ABSOLUTE NEUTROPHILS (test c ode = 1066) 4.30 K/UL ABSOLUTE LYMPHOCYTES (test c ode = 1067) 2.02 K/UL ABSOLUTE MONOCYTES (test cod e = 1068) 0.46 K/UL ABSOLUTE EOSINOPHILS (test c ode = 1040) 0.07 K/UL ABSOLUTE BASOPHILS (test cod e = 1069) 0.03 K/UL ABS IMMATURE GRANULOCYTES (t est code = 1020) 0.02 K/UL ABS NUCLEATED RBCS (test cod e = 20731) 0.00 K/UL Yuri KleinCOMPREHENSIVE METABOLIC [id number] 00:00:00* Test Item Value Reference Range Interpretation Comme nts GLUCOSE (test code = 2217) 371 MG/DL BUN (test code = 2208) 16 MG/DL CREATININE (test code = 2214) 0.74 MG/DL eGFR (2020 CKD-EPI) (test code = 38325) 112 ML/MIN/1.73 CALC BUN/CREAT (test code = 2235) 22 RATIO SODIUM (test code = 2231) 136 MEQ/L POTASSIUM (test code = 2228) 4.3 MEQ/L CHLORIDE (test code = 2215) 96 MEQ/L CARBON DIOXIDE (test code = 2206) 25 MEQ/L CALCIUM (test code = 2209) 9.6 MG/DL PROTEIN, TOTAL (test code = 2229) 6.9 G/DL ALBUMIN (test code = 2201) 4.8 G/DL CALC GLOBULIN (test code = 2240) 2.1 G/DL CALC A/G RATIO (test code = 2234) 2.3 RATIO BILIRUBIN, TOTAL (test code = 2207) 0.5 MG/DL ALKALINE PHOSPHATASE (test code = 2204) 89 U/L AST (test code = 2218) 13 U/L ALT (test code = 2219) 20 U/L Yuri KleinHEMOGLOBIN [id number] 00:00:00* Test Item Value Reference Range Interpretation Comme mitul HEMOGLOBIN A1c (test code = 53927) 12.0 % Yuri KleinCBC W/AUTO [id number] 00:00:00* Test Item Value Reference Range Interpretation Comme nts WBC (test code = 1001) 6.9 K/UL RBC (test code = 1002) 5.48 M/UL HEMOGLOBIN (test code = 1003) 17.1 G/DL HEMATOCRIT (test code = 1004) 49.2 % MCV (test code = 1005) 89.8 fL MCH (test code = 1006) 31.2 PG MCHC (test code = 1007) 34.8 G/DL RDW (test code = 1038) 11.9 % NEUTROPHILS (test code = 1008) 62.3 % LYMPHOCYTES (test code = 1010) 29.3 % MONOCYTES (test code = 1011) 6.7 % EOSINOPHILS (test code = 1012) 1.0 % BASOPHILS (test code = 1013) 0.4 % IMMATURE GRANULOCYTES (test code = 1036) 0.3 % NUCLEATED RBCS (test code = 1065) 0.0 /100WBC'S PLATELET COUNT (test code = 1015) 213 K/UL ABSOLUTE NEUTROPHILS (test c ode = 1066) 4.30 K/UL ABSOLUTE LYMPHOCYTES (test c ode = 1067) 2.02 K/UL ABSOLUTE MONOCYTES (test cod e = 1068) 0.46 K/UL ABSOLUTE EOSINOPHILS (test c ode = 1040) 0.07 K/UL ABSOLUTE BASOPHILS (test cod e = 1069) 0.03 K/UL ABS IMMATURE GRANULOCYTES (t est code = 1020) 0.02 K/UL ABS NUCLEATED RBCS (test cod e = 94780) 0.00 K/UL Yuri KleinCOMPREHENSIVE METABOLIC [id number] 00:00:00* Test Item Value Reference Range Interpretation Comme nts GLUCOSE (test code = 2217) 371 MG/DL BUN (test code = 2208) 16 MG/DL CREATININE (test code = 2214) 0.74 MG/DL eGFR (2020 CKD-EPI) (test code = 90346) 112 ML/MIN/1.73 CALC BUN/CREAT (test code = 2235) 22 RATIO SODIUM (test code = 2231) 136 MEQ/L POTASSIUM (test code = 2228) 4.3 MEQ/L CHLORIDE (test code = 2215) 96 MEQ/L CARBON DIOXIDE (test code = 2206) 25 MEQ/L CALCIUM (test code = 2209) 9.6 MG/DL PROTEIN, TOTAL (test code = 2229) 6.9 G/DL ALBUMIN (test code = 2201) 4.8 G/DL CALC GLOBULIN (test code = 2240) 2.1 G/DL CALC A/G RATIO (test code = 2234) 2.3 RATIO BILIRUBIN, TOTAL (test code = 2207) 0.5 MG/DL ALKALINE PHOSPHATASE (test code = 2204) 89 U/L AST (test code = 2218) 13 U/L ALT (test code = 2219) 20 U/L Yuri KleinHEMOGLOBIN [id number] 00:00:00* Test Item Value Reference Range Interpretation Comme nts HEMOGLOBIN A1c (test code = 27152) 12.0 % Yuri KleinCBC W/AUTO [id number] 00:00:00* Test Item Value Reference Range Interpretation Comme nts WBC (test code = 1001) 6.9 K/UL RBC (test code = 1002) 5.48 M/UL HEMOGLOBIN (test code = 1003) 17.1 G/DL HEMATOCRIT (test code = 1004) 49.2 % MCV (test code = 1005) 89.8 fL MCH (test code = 1006) 31.2 PG MCHC (test code = 1007) 34.8 G/DL RDW (test code = 1038) 11.9 % NEUTROPHILS (test code = 1008) 62.3 % LYMPHOCYTES (test code = 1010) 29.3 % MONOCYTES (test code = 1011) 6.7 % EOSINOPHILS (test code = 1012) 1.0 % BASOPHILS (test code = 1013) 0.4 % IMMATURE GRANULOCYTES (test code = 1036) 0.3 % NUCLEATED RBCS (test code = 1065) 0.0 /100WBC'S PLATELET COUNT (test code = 1015) 213 K/UL ABSOLUTE NEUTROPHILS (test c ode = 1066) 4.30 K/UL ABSOLUTE LYMPHOCYTES (test c ode = 1067) 2.02 K/UL ABSOLUTE MONOCYTES (test cod e = 1068) 0.46 K/UL ABSOLUTE EOSINOPHILS (test c ode = 1040) 0.07 K/UL ABSOLUTE BASOPHILS (test cod e = 1069) 0.03 K/UL ABS IMMATURE GRANULOCYTES (t est code = 1020) 0.02 K/UL ABS NUCLEATED RBCS (test cod e = 91057) 0.00 K/UL Yuri KleinCOMPREHENSIVE METABOLIC [id number] 00:00:00* Test Item Value Reference Range Interpretation Comme nts GLUCOSE (test code = 2217) 371 MG/DL BUN (test code = 2208) 16 MG/DL CREATININE (test code = 2214) 0.74 MG/DL eGFR (2020 CKD-EPI) (test code = 35591) 112 ML/MIN/1.73 CALC BUN/CREAT (test code = 2235) 22 RATIO SODIUM (test code = 2231) 136 MEQ/L POTASSIUM (test code = 2228) 4.3 MEQ/L CHLORIDE (test code = 2215) 96 MEQ/L CARBON DIOXIDE (test code = 2206) 25 MEQ/L CALCIUM (test code = 2209) 9.6 MG/DL PROTEIN, TOTAL (test code = 2229) 6.9 G/DL ALBUMIN (test code = 2201) 4.8 G/DL CALC GLOBULIN (test code = 2240) 2.1 G/DL CALC A/G RATIO (test code = 2234) 2.3 RATIO BILIRUBIN, TOTAL (test code = 7) 0.5 MG/DL ALKALINE PHOSPHATASE (test code = 4) 89 U/L AST (test code = 2217) 13 U/L ALT (test code = 221) 20 U/L Yuri KleinHEMOGLOBIN [id number] 00:00:00* Test Item Value Reference Range Interpretation Comme [facility] HEMOGLOBIN A1c (test code = 71961) 12.0 % Yuri KleinC W/AUTO [id number] 00:00:00* Test Item Value Reference Range Interpretation Comme nts WBC (test code = 1001) 6.9 K/UL RBC (test code = 1002) 5.48 M/UL HEMOGLOBIN (test code = 1003) 17.1 G/DL HEMATOCRIT (test code = 1004) 49.2 % MCV (test code = 1005) 89.8 fL MCH (test code = 1006) 31.2 PG MCHC (test code = 1007) 34.8 G/DL RDW (test code = 1038) 11.9 % NEUTROPHILS (test code = 1008) 62.3 % LYMPHOCYTES (test code = 1010) 29.3 % MONOCYTES (test code = 1011) 6.7 % EOSINOPHILS (test code = 1012) 1.0 % BASOPHILS (test code = 1013) 0.4 % IMMATURE GRANULOCYTES (test code = 1036) 0.3 % NUCLEATED RBCS (test code = 1065) 0.0 /100WBC'S PLATELET COUNT (test code = 1015) 213 K/UL ABSOLUTE NEUTROPHILS (test c ode = 1066) 4.30 K/UL ABSOLUTE LYMPHOCYTES (test c ode = 1067) 2.02 K/UL ABSOLUTE MONOCYTES (test cod e = 1068) 0.46 K/UL ABSOLUTE EOSINOPHILS (test c ode = 1040) 0.07 K/UL ABSOLUTE BASOPHILS (test cod e = 1069) 0.03 K/UL ABS IMMATURE GRANULOCYTES (t est code = 1020) 0.02 K/UL ABS NUCLEATED RBCS (test cod e = 04357) 0.00 K/UL Yuri KleinCOMPREHENSIVE METABOLIC [id number] 00:00:00* Test Item Value Reference Range Interpretation Comme nts GLUCOSE (test code = 2217) 371 MG/DL BUN (test code = 2208) 16 MG/DL CREATININE (test code = 2214) 0.74 MG/DL eGFR (2020 CKD-EPI) (test code = 90563) 112 ML/MIN/1.73 CALC BUN/CREAT (test code = 2235) 22 RATIO SODIUM (test code = 2231) 136 MEQ/L POTASSIUM (test code = 2228) 4.3 MEQ/L CHLORIDE (test code = 2215) 96 MEQ/L CARBON DIOXIDE (test code = 2206) 25 MEQ/L CALCIUM (test code = 2209) 9.6 MG/DL PROTEIN, TOTAL (test code = 2229) 6.9 G/DL ALBUMIN (test code = 2201) 4.8 G/DL CALC GLOBULIN (test code = 2240) 2.1 G/DL CALC A/G RATIO (test code = 2234) 2.3 RATIO BILIRUBIN, TOTAL (test code = 2207) 0.5 MG/DL ALKALINE PHOSPHATASE (test code = 2204) 89 U/L AST (test code = 2218) 13 U/L ALT (test code = 2219) 20 U/L Yuri KleinHEMOGLOBIN [id number] 00:00:00* Test Item Value Reference Range Interpretation Comme nts HEMOGLOBIN A1c (test code = 92081) 12.0 % Yuri KleinCBC W/AUTO [id number] 00:00:00* Test Item Value Reference Range Interpretation Comme nts WBC (test code = 1001) 6.9 K/UL RBC (test code = 1002) 5.48 M/UL HEMOGLOBIN (test code = 1003) 17.1 G/DL HEMATOCRIT (test code = 1004) 49.2 % MCV (test code = 1005) 89.8 fL MCH (test code = 1006) 31.2 PG MCHC (test code = 1007) 34.8 G/DL RDW (test code = 1038) 11.9 % NEUTROPHILS (test code = 1008) 62.3 % LYMPHOCYTES (test code = 1010) 29.3 % MONOCYTES (test code = 1011) 6.7 % EOSINOPHILS (test code = 1012) 1.0 % BASOPHILS (test code = 1013) 0.4 % IMMATURE GRANULOCYTES (test code = 1036) 0.3 % NUCLEATED RBCS (test code = 1065) 0.0 /100WBC'S PLATELET COUNT (test code = 1015) 213 K/UL ABSOLUTE NEUTROPHILS (test c ode = 1066) 4.30 K/UL ABSOLUTE LYMPHOCYTES (test c ode = 1067) 2.02 K/UL ABSOLUTE MONOCYTES (test cod e = 1068) 0.46 K/UL ABSOLUTE EOSINOPHILS (test c ode = 1040) 0.07 K/UL ABSOLUTE BASOPHILS (test cod e = 1069) 0.03 K/UL ABS IMMATURE GRANULOCYTES (t est code = 1020) 0.02 K/UL ABS NUCLEATED RBCS (test cod e = 58808) 0.00 K/UL Yuri KleinCOMPREHENSIVE METABOLIC [id number] 00:00:00* Test Item Value Reference Range Interpretation Comme nts GLUCOSE (test code = 2217) 371 MG/DL BUN (test code = 2208) 16 MG/DL CREATININE (test code = 2214) 0.74 MG/DL eGFR (2020 CKD-EPI) (test code = 22374) 112 ML/MIN/1.73 CALC BUN/CREAT (test code = 2235) 22 RATIO SODIUM (test code = 2231) 136 MEQ/L POTASSIUM (test code = 2228) 4.3 MEQ/L CHLORIDE (test code = 2215) 96 MEQ/L CARBON DIOXIDE (test code = 2206) 25 MEQ/L CALCIUM (test code = 2209) 9.6 MG/DL PROTEIN, TOTAL (test code = 2229) 6.9 G/DL ALBUMIN (test code = 2201) 4.8 G/DL CALC GLOBULIN (test code = 2240) 2.1 G/DL CALC A/G RATIO (test code = 2234) 2.3 RATIO BILIRUBIN, TOTAL (test code = 2207) 0.5 MG/DL ALKALINE PHOSPHATASE (test code = 2204) 89 U/L AST (test code = 2218) 13 U/L ALT (test code = 2219) 20 U/L Yuri Beverly [facility] METABOLIC [id number] 13:33:00* Test Item Value Reference Range Interpretation Comme nts SODIUM (test code = NA) 135 mmol/L 136-145 L POTASSIUM (test code = K) 4.0 mmol/L 3.5-5.1 N CHLORIDE (test code = CL) 101.0 mmol/L 98-107 N CARBON DIOXIDE (test code = CO2) 28.0 mmol/L 21-32 N ANION GAP (test code = GAP) 10.0 10-20 N GLUCOSE (test code = GLU) 341 mg/dL 74-106 H BLOOD UREA NITROGEN (test code = BUN) 12 mg/dL 7-18 N GLOMERULAR FILTRATION RATE (test code = GFR) > 60 mL/min See_Comment Estimated GFR by using Modified MDRD formula.Chronic kidney disease is defined as either kidney damageor GFR <60 mL/min/1.73 m2 for >3 months. [Automated message] The system which generated this result transmitted reference range: >=60. The reference range was not used to interpret this result as normal/abnormal. CREATININE (test code = CREAT) 1.00 mg/dL 0.7-1.3 N BUN/CREATININE RATIO (test code = BUN/CREA) 12.1 10-20 N CALCIUM (test code = CA) 8.6 mg/dL 8.5-10.1 N [id number] 13:33:00* Test Item Value Reference Range Interpretation Comme nts TROPONIN-HS (test code = TROPI) <4.0 pg/mL 0-45 N CAUTION: Units o f the current test methodology (pg/mL)differ from the prior test methodology (ng/mL) by a factorof 1000. CBC W/O [id number] 13:14:00* Test Item Value Reference Range Interpretation Comme nts WHITE BLOOD CELL (test code = WBC) 6.1 K/mm3 4.5-12.5 N RED BLOOD CELL (test code = RBC) 5.49 mill/mm3 4.0-5.8 N HEMOGLOBIN (test code = HGB) 16.7 gram/dL 13.0-17.5 N HEMATOCRIT (test code = HCT) 47.5 % 42.0-52.0 N MEAN CELL VOLUME (test code = MCV) 86.5 fL 80-98 N MEAN CELL HGB (test code = MCH) 30.4 picogram 27.0-33.0 N MEAN CELL HGB CONCETRATION (test code = MCHC) 35.2 gram/dL 33.0-36.0 N RED CELL DISTRIBUTION WIDTH (test code = RDW) 11.9 % 11.6-16.2 N PLATELET COUNT (test code = PLT) 197 K/mm3 150-450 N MEAN PLATELET VOLUME (test c ode = MPV) 11.3 fL 6.7-11.0 H - XR CHEST 1 [id number] 12:09:00 [facility])Name: HUE CASTELANINE : 1975 Sex: M FAX: Lenny Noonan MD [phone] [place]: [address]: PRE Name: GREYSON CASTELAN [facility] : 1975 Age/S: 46/M [address] [facility] Unit #: [id number] Loc: [place] [address] Phys: Lenny Noonan MD Acct: [id number] Dis Date: Status: PRE ER PHONE #: [phone] Exam Date: 04/14/2022 1205 FAX #: [phone] Reason: CHEST PAIN EXAMS: CPT CODE: [id number] XR CHEST 1 V 40573 HISTORY: Chest pain. COMPARISON: August 03, 2018. Location: [facility]. No acute infiltrates, effusion or congestionis noted. The cardiac and mediastinal silhouette are within normal limits. IMPRESSION: No acute infiltrates, effusion or congestion. at 1209 Reported and signed by: Steve Cartagena M.D. CC: Lenny Noonan MD Technologist: Ean RICE(R) Trnscrd Date/Time/By: 04/14/2022 (0808) : By: [email or web address] Orig Print D/T: S: 04/14/2022 (6428) PAGE 1 Signed Report MICROALBUMIN, [id number] 00:00:00* Test Item Value Reference Range Interpretation Comme nts ALBUMIN, URINE, RANDOM (test code = 18274) TEST NOT PERFORMED MG/DL Yuri F AustinMICROALBUMIN, [id number] 00:00:00* Test Item Value Reference Range Interpretation Comme nts ALBUMIN, URINE, RANDOM (test code = 27289) TEST NOT PERFORMED MG/DL Yuri F AustinMICROALBUMIN, [id number] 00:00:00* Test Item Value Reference Range Interpretation Comme nts ALBUMIN, URINE, RANDOM (test code = 63197) TEST NOT PERFORMED MG/DL Yuri F AustinMICROALBUMIN, [id number] 00:00:00* Test Item Value Reference Range Interpretation Comme nts ALBUMIN, URINE, RANDOM (test code = 42870) TEST NOT PERFORMED MG/DL Yuir F AustinMICROALBUMIN, [id number] 00:00:00* Test Item Value Reference Range Interpretation Comme nts ALBUMIN, URINE, RANDOM (test code = 61934) TEST NOT PERFORMED MG/DL Yuri F AustinCOMPREHENSIVE METABOLIC [id number] 00:00:00* Test Item Value Reference Range Interpretation Comme nts GLUCOSE (test code = 2217) 133 MG/DL BUN (test code = 2208) 15 MG/DL CREATININE (test code = 2214) 0.83 MG/DL eGFR AMER. (test cod e = 41209) 124 ML/MIN/1.73 eGFR NON- AMER. (test code = 38202) 107 ML/MIN/1.73 CALC BUN/CREAT (test code = 2235) 18 RATIO SODIUM (test code = 2231) 142 MEQ/L POTASSIUM (test code = 2228) 4.4 MEQ/L CHLORIDE (test code = 2215) 102 MEQ/L CARBON DIOXIDE (test code = 2206) 24 MEQ/L CALCIUM (test code = 2209) 9.9 MG/DL PROTEIN, TOTAL (test code = 2229) 7.5 G/DL ALBUMIN (test code = 2201) 4.9 G/DL CALC GLOBULIN (test code = 2240) 2.6 G/DL CALC A/G RATIO (test code = 2234) 1.9 RATIO BILIRUBIN, TOTAL (test code = 2207) 0.9 MG/DL ALKALINE PHOSPHATASE (test code = 2204) 72 U/L AST (test code = 2218) 25 U/L ALT (test code = 2219) 42 U/L Yuri Beverly AustinLIPID [id number] 00:00:00* Test Item Value Reference Range Interpretation Comme nts CHOLESTEROL (test code = 2210) 278 MG/DL TRIGLYCERIDES (test code = 2232) 147 MG/DL HDL CHOLESTEROL (test code = 2220) 41 MG/DL CALC LDL CHOL (test code = 2237) 206 MG/DL RISK RATIO LDL/HDL (test cod e = 2238) 5.02 RATIO Yuri Beverly ErnieCOMPREHENSIVE METABOLIC [id number] 00:00:00* Test Item Value Reference Range Interpretation Comme nts GLUCOSE (test code = 2217) 133 MG/DL BUN (test code = 2208) 15 MG/DL CREATININE (test code = 2214) 0.83 MG/DL eGFR AMER. (test cod e = 69298) 124 ML/MIN/1.73 eGFR NON- AMER. (test code = 99102) 107 ML/MIN/1.73 CALC BUN/CREAT (test code = 2235) 18 RATIO SODIUM (test code = 2231) 142 MEQ/L POTASSIUM (test code = 2228) 4.4 MEQ/L CHLORIDE (test code = 2215) 102 MEQ/L CARBON DIOXIDE (test code = 2206) 24 MEQ/L CALCIUM (test code = 2209) 9.9 MG/DL PROTEIN, TOTAL (test code = 2229) 7.5 G/DL ALBUMIN (test code = 2201) 4.9 G/DL CALC GLOBULIN (test code = 2240) 2.6 G/DL CALC A/G RATIO (test code = 2234) 1.9 RATIO BILIRUBIN, TOTAL (test code = 2207) 0.9 MG/DL ALKALINE PHOSPHATASE (test code = 2204) 72 U/L AST (test code = 2218) 25 U/L ALT (test code = 2219) 42 U/L Yuri KleinLIPID [id number] 00:00:00* Test Item Value Reference Range Interpretation Comme nts CHOLESTEROL (test code = 2210) 278 MG/DL TRIGLYCERIDES (test code = 2232) 147 MG/DL HDL CHOLESTEROL (test code = 2220) 41 MG/DL CALC LDL CHOL (test code = 2237) 206 MG/DL RISK RATIO LDL/HDL (test cod e = 2238) 5.02 RATIO Yuri KleinCOMPREHENSIVE METABOLIC [id number] 00:00:00* Test Item Value Reference Range Interpretation Comme nts GLUCOSE (test code = 2217) 133 MG/DL BUN (test code = 2208) 15 MG/DL CREATININE (test code = 2214) 0.83 MG/DL eGFR AMER. (test cod e = 99200) 124 ML/MIN/1.73 eGFR NON- AMER. (test code = 79419) 107 ML/MIN/1.73 CALC BUN/CREAT (test code = 2235) 18 RATIO SODIUM (test code = 2231) 142 MEQ/L POTASSIUM (test code = 2228) 4.4 MEQ/L CHLORIDE (test code = 2215) 102 MEQ/L CARBON DIOXIDE (test code = 2206) 24 MEQ/L CALCIUM (test code = 2209) 9.9 MG/DL PROTEIN, TOTAL (test code = 2229) 7.5 G/DL ALBUMIN (test code = 2201) 4.9 G/DL CALC GLOBULIN (test code = 2240) 2.6 G/DL CALC A/G RATIO (test code = 2234) 1.9 RATIO BILIRUBIN, TOTAL (test code = 2207) 0.9 MG/DL ALKALINE PHOSPHATASE (test code = 2204) 72 U/L AST (test code = 2218) 25 U/L ALT (test code = 2219) 42 U/L Yuri Beverly AustinLIPID [id number] 00:00:00* Test Item Value Reference Range Interpretation Comme nts CHOLESTEROL (test code = 2210) 278 MG/DL TRIGLYCERIDES (test code = 2232) 147 MG/DL HDL CHOLESTEROL (test code = 2220) 41 MG/DL CALC LDL CHOL (test code = 2237) 206 MG/DL RISK RATIO LDL/HDL (test cod e = 2238) 5.02 RATIO Yuri KleinCOMPREHENSIVE METABOLIC [id number] 00:00:00* Test Item Value Reference Range Interpretation Comme nts GLUCOSE (test code = 2217) 133 MG/DL BUN (test code = 2208) 15 MG/DL CREATININE (test code = 2214) 0.83 MG/DL eGFR AMER. (test cod e = 11996) 124 ML/MIN/1.73 eGFR NON- AMER. (test code = 72987) 107 ML/MIN/1.73 CALC BUN/CREAT (test code = 2235) 18 RATIO SODIUM (test code = 2231) 142 MEQ/L POTASSIUM (test code = 2228) 4.4 MEQ/L CHLORIDE (test code = 2215) 102 MEQ/L CARBON DIOXIDE (test code = 2206) 24 MEQ/L CALCIUM (test code = 2209) 9.9 MG/DL PROTEIN, TOTAL (test code = 2229) 7.5 G/DL ALBUMIN (test code = 2201) 4.9 G/DL CALC GLOBULIN (test code = 2240) 2.6 G/DL CALC A/G RATIO (test code = 2234) 1.9 RATIO BILIRUBIN, TOTAL (test code = 2207) 0.9 MG/DL ALKALINE PHOSPHATASE (test code = 2204) 72 U/L AST (test code = 2218) 25 U/L ALT (test code = 2219) 42 U/L Yuri Beverly AustinLIPID [id number] 00:00:00* Test Item Value Reference Range Interpretation Comme nts CHOLESTEROL (test code = 2210) 278 MG/DL TRIGLYCERIDES (test code = 2232) 147 MG/DL HDL CHOLESTEROL (test code = 2220) 41 MG/DL CALC LDL CHOL (test code = 2237) 206 MG/DL RISK RATIO LDL/HDL (test cod e = 2238) 5.02 RATIO Yuri KleinCOMPREHENSIVE METABOLIC [id number] 00:00:00* Test Item Value Reference Range Interpretation Comme nts GLUCOSE (test code = 2217) 133 MG/DL BUN (test code = 2208) 15 MG/DL CREATININE (test code = 2214) 0.83 MG/DL eGFR AMER. (test cod e = 18485) 124 ML/MIN/1.73 eGFR NON- AMER. (test code = 24398) 107 ML/MIN/1.73 CALC BUN/CREAT (test code = 2235) 18 RATIO SODIUM (test code = 2231) 142 MEQ/L POTASSIUM (test code = 2228) 4.4 MEQ/L CHLORIDE (test code = 2215) 102 MEQ/L CARBON DIOXIDE (test code = 2206) 24 MEQ/L CALCIUM (test code = 2209) 9.9 MG/DL PROTEIN, TOTAL (test code = 2229) 7.5 G/DL ALBUMIN (test code = 2201) 4.9 G/DL CALC GLOBULIN (test code = 2240) 2.6 G/DL CALC A/G RATIO (test code = 2234) 1.9 RATIO BILIRUBIN, TOTAL (test code = 2207) 0.9 MG/DL ALKALINE PHOSPHATASE (test code = 2204) 72 U/L AST (test code = 2218) 25 U/L ALT (test code = 2219) 42 U/L Yuri KleinLIPID [id number] 00:00:00* Test Item Value Reference Range Interpretation Comme nts CHOLESTEROL (test code = 2210) 278 MG/DL TRIGLYCERIDES (test code = 2232) 147 MG/DL HDL CHOLESTEROL (test code = 2220) 41 MG/DL CALC LDL CHOL (test code = 2237) 206 MG/DL RISK RATIO LDL/HDL (test cod e = 2238) 5.02 RATIO Yuri KleinHEMOGLOBIN [id number] 00:00:00* Test Item Value Reference Range Interpretation Comme nts HEMOGLOBIN A1c (test code = 45334) 6.4 % Yuri Beverly AustinHEMOGLOBIN [id number] 00:00:00* Test Item Value Reference Range Interpretation Comme nts HEMOGLOBIN A1c (test code = 65076) 6.4 % Yuri Beverly AustinHEMOGLOBIN [id number] 00:00:00* Test Item Value Reference Range Interpretation Comme nts HEMOGLOBIN A1c (test code = 56985) 6.4 % Yuri Beverly AustinHEMOGLOBIN [id number] 00:00:00* Test Item Value Reference Range Interpretation Comme nts HEMOGLOBIN A1c (test code = 23310) 6.4 % Yuri Beverly AustinHEMOGLOBIN [id number] 00:00:00* Test Item Value Reference Range Interpretation Comme nts HEMOGLOBIN A1c (test code = 14399) 6.4 % Yuri Beverly AustinHEMOGLOBIN [id number] 00:00:00* Test Item Value Reference Range Interpretation Comme nts HEMOGLOBIN A1c (test code = 38451) 7.0 % Yuri Beverly AustinHEMOGLOBIN [id number] 00:00:00* Test Item Value Reference Range Interpretation Comme nts HEMOGLOBIN A1c (test code = 46553) 7.0 % Yuri Beverly AustinHEMOGLOBIN [id number] 00:00:00* Test Item Value Reference Range Interpretation Comme nts HEMOGLOBIN A1c (test code = 05955) 7.0 % Yuri Beverly AustinHEMOGLOBIN [id number] 00:00:00* Test Item Value Reference Range Interpretation Comme nts HEMOGLOBIN A1c (test code = 15206) 7.0 % Yuri Beverly AustinHEMOGLOBIN [id number] 00:00:00* Test Item Value Reference Range Interpretation Comme nts HEMOGLOBIN A1c (test code = 50066) 7.0 % Yuri Beverly AustinCOMPREHENSIVE METABOLIC [id number] 00:00:00* Test Item Value Reference Range Interpretation Comme nts GLUCOSE (test code = 2217) 145 MG/DL BUN (test code = 2208) 11 MG/DL CREATININE (test code = 2214) 0.79 MG/DL eGFR AMER. (test cod e = 40876) 128 ML/MIN/1.73 eGFR NON- AMER. (test code = 20584) 111 ML/MIN/1.73 CALC BUN/CREAT (test code = 2235) 14 RATIO SODIUM (test code = 2231) 140 MEQ/L POTASSIUM (test code = 2228) 4.2 MEQ/L CHLORIDE (test code = 2215) 98 MEQ/L CARBON DIOXIDE (test code = 2206) 29 MEQ/L CALCIUM (test code = 2209) 9.5 MG/DL PROTEIN, TOTAL (test code = 2229) 7.6 G/DL ALBUMIN (test code = 2201) 4.7 G/DL CALC GLOBULIN (test code = 2240) 2.9 G/DL CALC A/G RATIO (test code = 2234) 1.6 RATIO BILIRUBIN, TOTAL (test code = 2207) 0.5 MG/DL ALKALINE PHOSPHATASE (test code = 2204) 75 U/L AST (test code = 2218) 41 U/L ALT (test code = 2219) 83 U/L Yuri Beverly ErnieLIPID [id number] 00:00:00* Test Item Value Reference Range Interpretation Comme nts CHOLESTEROL (test code = 2210) 267 MG/DL TRIGLYCERIDES (test code = 2232) 254 MG/DL HDL CHOLESTEROL (test code = 2220) 40 MG/DL CALC LDL CHOL (test code = 2237) 176 MG/DL RISK RATIO LDL/HDL (test cod e = 2238) 4.41 RATIO Yuri KleinHEMOGLOBIN [id number] 00:00:00* Test Item Value Reference Range Interpretation Comme nts HEMOGLOBIN A1c (test code = 27434) 6.5 % Yuri Beverly ErnieCBC W/AUTO [id number] 00:00:00* Test Item Value Reference Range Interpretation Comme nts WBC (test code = 1001) 4.8 K/UL RBC (test code = 1002) 5.32 M/UL HEMOGLOBIN (test code = 1003) 17.0 G/DL HEMATOCRIT (test code = 1004) 46.5 % MCV (test code = 1005) 87.4 fL MCH (test code = 1006) 32.0 PG MCHC (test code = 1007) 36.6 G/DL RDW (test code = 1038) 12.5 % NEUTROPHILS (test code = 1008) 40.2 % LYMPHOCYTES (test code = 1010) 49.7 % MONOCYTES (test code = 1011) 7.4 % EOSINOPHILS (test code = 1012) 1.9 % BASOPHILS (test code = 1013) 0.8 % PLATELET COUNT (test code = 1015) 171 K/UL Yuri KleinCOMPREHENSIVE METABOLIC [id number] 00:00:00* Test Item Value Reference Range Interpretation Comme nts GLUCOSE (test code = 2217) 145 MG/DL BUN (test code = 2208) 11 MG/DL CREATININE (test code = 2214) 0.79 MG/DL eGFR AMER. (test cod e = 24461) 128 ML/MIN/1.73 eGFR NON- AMER. (test code = 10682) 111 ML/MIN/1.73 CALC BUN/CREAT (test code = 2235) 14 RATIO SODIUM (test code = 2231) 140 MEQ/L POTASSIUM (test code = 2228) 4.2 MEQ/L CHLORIDE (test code = 2215) 98 MEQ/L CARBON DIOXIDE (test code = 2206) 29 MEQ/L CALCIUM (test code = 2209) 9.5 MG/DL PROTEIN, TOTAL (test code = 2229) 7.6 G/DL ALBUMIN (test code = 2201) 4.7 G/DL CALC GLOBULIN (test code = 2240) 2.9 G/DL CALC A/G RATIO (test code = 2234) 1.6 RATIO BILIRUBIN, TOTAL (test code = 2207) 0.5 MG/DL ALKALINE PHOSPHATASE (test code = 2204) 75 U/L AST (test code = 2218) 41 U/L ALT (test code = 2219) 83 U/L Yuri KleinLIPID [id number] 00:00:00* Test Item Value Reference Range Interpretation Comme nts CHOLESTEROL (test code = 2210) 267 MG/DL TRIGLYCERIDES (test code = 2232) 254 MG/DL HDL CHOLESTEROL (test code = 2220) 40 MG/DL CALC LDL CHOL (test code = 2237) 176 MG/DL RISK RATIO LDL/HDL (test cod e = 2238) 4.41 RATIO Yuri KleinHEMOGLOBIN [id number] 00:00:00* Test Item Value Reference Range Interpretation Comme nts HEMOGLOBIN A1c (test code = 49601) 6.5 % Yuri Beverly ErnieCBC W/AUTO [id number] 00:00:00* Test Item Value Reference Range Interpretation Comme nts WBC (test code = 1001) 4.8 K/UL RBC (test code = 1002) 5.32 M/UL HEMOGLOBIN (test code = 1003) 17.0 G/DL HEMATOCRIT (test code = 1004) 46.5 % MCV (test code = 1005) 87.4 fL MCH (test code = 1006) 32.0 PG MCHC (test code = 1007) 36.6 G/DL RDW (test code = 1038) 12.5 % NEUTROPHILS (test code = 1008) 40.2 % LYMPHOCYTES (test code = 1010) 49.7 % MONOCYTES (test code = 1011) 7.4 % EOSINOPHILS (test code = 1012) 1.9 % BASOPHILS (test code = 1013) 0.8 % PLATELET COUNT (test code = 1015) 171 K/UL Yuri KleinCOMPREHENSIVE METABOLIC [id number] 00:00:00* Test Item Value Reference Range Interpretation Comme nts GLUCOSE (test code = 2217) 145 MG/DL BUN (test code = 2208) 11 MG/DL CREATININE (test code = 2214) 0.79 MG/DL eGFR AMER. (test cod e = 00627) 128 ML/MIN/1.73 eGFR NON- AMER. (test code = 24116) 111 ML/MIN/1.73 CALC BUN/CREAT (test code = 2235) 14 RATIO SODIUM (test code = 2231) 140 MEQ/L POTASSIUM (test code = 2228) 4.2 MEQ/L CHLORIDE (test code = 2215) 98 MEQ/L CARBON DIOXIDE (test code = 2206) 29 MEQ/L CALCIUM (test code = 2209) 9.5 MG/DL PROTEIN, TOTAL (test code = 2229) 7.6 G/DL ALBUMIN (test code = 2201) 4.7 G/DL CALC GLOBULIN (test code = 2240) 2.9 G/DL CALC A/G RATIO (test code = 2234) 1.6 RATIO BILIRUBIN, TOTAL (test code = 2207) 0.5 MG/DL ALKALINE PHOSPHATASE (test code = 2204) 75 U/L AST (test code = 2218) 41 U/L ALT (test code = 2219) 83 U/L Yuri KleinLIPID [id number] 00:00:00* Test Item Value Reference Range Interpretation Comme nts CHOLESTEROL (test code = 2210) 267 MG/DL TRIGLYCERIDES (test code = 2232) 254 MG/DL HDL CHOLESTEROL (test code = 2220) 40 MG/DL CALC LDL CHOL (test code = 2237) 176 MG/DL RISK RATIO LDL/HDL (test cod e = 2238) 4.41 RATIO Yuri KleinHEMOGLOBIN [id number] 00:00:00* Test Item Value Reference Range Interpretation Comme mitul HEMOGLOBIN A1c (test code = 26204) 6.5 % Yuri KleinCBC W/AUTO [id number] 00:00:00* Test Item Value Reference Range Interpretation Comme nts WBC (test code = 1001) 4.8 K/UL RBC (test code = 1002) 5.32 M/UL HEMOGLOBIN (test code = 1003) 17.0 G/DL HEMATOCRIT (test code = 1004) 46.5 % MCV (test code = 1005) 87.4 fL MCH (test code = 1006) 32.0 PG MCHC (test code = 1007) 36.6 G/DL RDW (test code = 1038) 12.5 % NEUTROPHILS (test code = 1008) 40.2 % LYMPHOCYTES (test code = 1010) 49.7 % MONOCYTES (test code = 1011) 7.4 % EOSINOPHILS (test code = 1012) 1.9 % BASOPHILS (test code = 1013) 0.8 % PLATELET COUNT (test code = 1015) 171 K/UL Yuri KleinCOMPREHENSIVE METABOLIC [id number] 00:00:00* Test Item Value Reference Range Interpretation Comme nts GLUCOSE (test code = 2217) 145 MG/DL BUN (test code = 2208) 11 MG/DL CREATININE (test code = 2214) 0.79 MG/DL eGFR AMER. (test cod e = 72633) 128 ML/MIN/1.73 eGFR NON- AMER. (test code = 62834) 111 ML/MIN/1.73 CALC BUN/CREAT (test code = 2235) 14 RATIO SODIUM (test code = 2231) 140 MEQ/L POTASSIUM (test code = 2228) 4.2 MEQ/L CHLORIDE (test code = 2215) 98 MEQ/L CARBON DIOXIDE (test code = 2206) 29 MEQ/L CALCIUM (test code = 2209) 9.5 MG/DL PROTEIN, TOTAL (test code = 2229) 7.6 G/DL ALBUMIN (test code = 2201) 4.7 G/DL CALC GLOBULIN (test code = 2240) 2.9 G/DL CALC A/G RATIO (test code = 2234) 1.6 RATIO BILIRUBIN, TOTAL (test code = 2207) 0.5 MG/DL ALKALINE PHOSPHATASE (test code = 2204) 75 U/L AST (test code = 2218) 41 U/L ALT (test code = 2219) 83 U/L Yuri KleinLIPID [id number] 00:00:00* Test Item Value Reference Range Interpretation Comme nts CHOLESTEROL (test code = 2210) 267 MG/DL TRIGLYCERIDES (test code = 2232) 254 MG/DL HDL CHOLESTEROL (test code = 2220) 40 MG/DL CALC LDL CHOL (test code = 2237) 176 MG/DL RISK RATIO LDL/HDL (test cod e = 2238) 4.41 RATIO Yuri KleinHEMOGLOBIN [id number] 00:00:00* Test Item Value Reference Range Interpretation Comme nts HEMOGLOBIN A1c (test code = 62791) 6.5 % Yuri Beverly ErnieCBC W/AUTO [id number] 00:00:00* Test Item Value Reference Range Interpretation Comme nts WBC (test code = 1001) 4.8 K/UL RBC (test code = 1002) 5.32 M/UL HEMOGLOBIN (test code = 1003) 17.0 G/DL HEMATOCRIT (test code = 1004) 46.5 % MCV (test code = 1005) 87.4 fL MCH (test code = 1006) 32.0 PG MCHC (test code = 1007) 36.6 G/DL RDW (test code = 1038) 12.5 % NEUTROPHILS (test code = 1008) 40.2 % LYMPHOCYTES (test code = 1010) 49.7 % MONOCYTES (test code = 1011) 7.4 % EOSINOPHILS (test code = 1012) 1.9 % BASOPHILS (test code = 1013) 0.8 % PLATELET COUNT (test code = 1015) 171 K/UL Yuri Beverly ErnieCOMPREHENSIVE METABOLIC [id number] 00:00:00* Test Item Value Reference Range Interpretation Comme nts GLUCOSE (test code = 2217) 145 MG/DL BUN (test code = 2208) 11 MG/DL CREATININE (test code = 2214) 0.79 MG/DL eGFR AMER. (test cod e = 57001) 128 ML/MIN/1.73 eGFR NON- AMER. (test code = 73586) 111 ML/MIN/1.73 CALC BUN/CREAT (test code = 2235) 14 RATIO SODIUM (test code = 2231) 140 MEQ/L POTASSIUM (test code = 2228) 4.2 MEQ/L CHLORIDE (test code = 2215) 98 MEQ/L CARBON DIOXIDE (test code = 2206) 29 MEQ/L CALCIUM (test code = 2209) 9.5 MG/DL PROTEIN, TOTAL (test code = 2229) 7.6 G/DL ALBUMIN (test code = 2201) 4.7 G/DL CALC GLOBULIN (test code = 2240) 2.9 G/DL CALC A/G RATIO (test code = 2234) 1.6 RATIO BILIRUBIN, TOTAL (test code = 2207) 0.5 MG/DL ALKALINE PHOSPHATASE (test code = 2204) 75 U/L AST (test code = 2218) 41 U/L ALT (test code = 2219) 83 U/L Yuri KleinLIPID [id number] 00:00:00* Test Item Value Reference Range Interpretation Comme nts CHOLESTEROL (test code = 2210) 267 MG/DL TRIGLYCERIDES (test code = 2232) 254 MG/DL HDL CHOLESTEROL (test code = 2220) 40 MG/DL CALC LDL CHOL (test code = 2237) 176 MG/DL RISK RATIO LDL/HDL (test cod e = 2238) 4.41 RATIO Yuri KleinHEMOGLOBIN [id number] 00:00:00* Test Item Value Reference Range Interpretation Comme nts HEMOGLOBIN A1c (test code = 91913) 6.5 % Yuri Beverly ErnieCBC W/AUTO [id number] 00:00:00* Test Item Value Reference Range Interpretation Comme nts WBC (test code = 1001) 4.8 K/UL RBC (test code = 1002) 5.32 M/UL HEMOGLOBIN (test code = 1003) 17.0 G/DL HEMATOCRIT (test code = 1004) 46.5 % MCV (test code = 1005) 87.4 fL MCH (test code = 1006) 32.0 PG MCHC (test code = 1007) 36.6 G/DL RDW (test code = 1038) 12.5 % NEUTROPHILS (test code = 1008) 40.2 % LYMPHOCYTES (test code = 1010) 49.7 % MONOCYTES (test code = 1011) 7.4 % EOSINOPHILS (test code = 1012) 1.9 % BASOPHILS (test code = 1013) 0.8 % PLATELET COUNT (test code = 1015) 171 K/UL Yuri F AustinANA (ANTI-NUCLEAR AB) WITH REFLEX [id number] 00:00:00* Test Item Value Reference Range Interpretation Comme nts ANTI-NUCLEAR ANTIBODIES (bev t code = 3506) NEGATIVE Yuri F AustinANA (ANTI-NUCLEAR AB) WITH REFLEX [id number] 00:00:00* Test Item Value Reference Range Interpretation Comme nts ANTI-NUCLEAR ANTIBODIES (bev t code = 3506) NEGATIVE Yuri F AustinANA (ANTI-NUCLEAR AB) WITH REFLEX [id number] 00:00:00* Test Item Value Reference Range Interpretation Comme nts ANTI-NUCLEAR ANTIBODIES (bve t code = 3506) NEGATIVE Yuri F AustinANA (ANTI-NUCLEAR AB) WITH REFLEX [id number] 00:00:00* Test Item Value Reference Range Interpretation Comme nts ANTI-NUCLEAR ANTIBODIES (bev t code = 3506) NEGATIVE Yuri F AustinANA (ANTI-NUCLEAR AB) WITH REFLEX [id number] 00:00:00* Test Item Value Reference Range Interpretation Comme nts ANTI-NUCLEAR ANTIBODIES (bev t code = 3506) NEGATIVE Yuri F [id number] 00:00:00* Test Item Value Reference Range Interpretation Comme nts TSH (test code = 2821) 2.39 UIU/ML Yuri F ErnieRHEUMATOID FACTOR, [id number] 00:00:00* Test Item Value Reference Range Interpretation Comme nts RHEUMATOID FACTOR, QUANT (te st code = 3502) <10 IU/ML Yuri F [id number] 00:00:00* Test Item Value Reference Range Interpretation Comme nts TESTOSTERONE (test code = 2830) 394 NG/DL Yuri KleinPSA, [id number] 00:00:00* Test Item Value Reference Range Interpretation Comme nts PSA, TOTAL (test code = 2606) 0.54 NG/ML Yuri KleinCOMPREHENSIVE METABOLIC [id number] 00:00:00* Test Item Value Reference Range Interpretation Comme nts GLUCOSE (test code = 2217) 123 MG/DL BUN (test code = 2208) 15 MG/DL CREATININE (test code = 2214) 1.02 MG/DL eGFR AMER. (test cod e = 22524) 105 ML/MIN/1.73 eGFR NON- AMER. (test code = 62192) 91 ML/MIN/1.73 CALC BUN/CREAT (test code = 2235) 15 RATIO SODIUM (test code = 2231) 141 MEQ/L POTASSIUM (test code = 2228) 4.2 MEQ/L CHLORIDE (test code = 2215) 97 MEQ/L CARBON DIOXIDE (test code = 2206) 18 MEQ/L CALCIUM (test code = 2209) 9.1 MG/DL PROTEIN, TOTAL (test code = 2229) 7.3 G/DL ALBUMIN (test code = 2201) 4.5 G/DL CALC GLOBULIN (test code = 2240) 2.8 G/DL CALC A/G RATIO (test code = 2234) 1.6 RATIO BILIRUBIN, TOTAL (test code = 2207) 0.2 MG/DL ALKALINE PHOSPHATASE (test code = 2204) 72 U/L AST (test code = 2218) 21 U/L ALT (test code = 2219) 41 U/L Yuri KleinLIPID [id number] 00:00:00* Test Item Value Reference Range Interpretation Comme nts CHOLESTEROL (test code = 2210) 265 MG/DL TRIGLYCERIDES (test code = 2232) 541 MG/DL HDL CHOLESTEROL (test code = 2220) 36 MG/DL CALC LDL CHOL (test code = 2237) NOTE MG/DL RISK RATIO LDL/HDL (test cod e = 2238) (NOTE) RATIO Yuri [id number] 00:00:00* Test Item Value Reference Range Interpretation Comme nts TSH (test code = 2821) 2.39 UIU/ML Yuri KleinRHEUMATOID FACTOR, [id number] 00:00:00* Test Item Value Reference Range Interpretation Comme nts RHEUMATOID FACTOR, QUANT (te st code = 3502) <10 IU/ML Yuri [id number] 00:00:00* Test Item Value Reference Range Interpretation Comme nts TESTOSTERONE (test code = 2830) 394 NG/DL Yuri KleinPSA, [id number] 00:00:00* Test Item Value Reference Range Interpretation Comme nts PSA, TOTAL (test code = 2606) 0.54 NG/ML Yuri KleinCOMPREHENSIVE METABOLIC [id number] 00:00:00* Test Item Value Reference Range Interpretation Comme nts GLUCOSE (test code = 2217) 123 MG/DL BUN (test code = 2208) 15 MG/DL CREATININE (test code = 2214) 1.02 MG/DL eGFR AMER. (test cod e = 33127) 105 ML/MIN/1.73 eGFR NON- AMER. (test code = 56888) 91 ML/MIN/1.73 CALC BUN/CREAT (test code = 2235) 15 RATIO SODIUM (test code = 2231) 141 MEQ/L POTASSIUM (test code = 2228) 4.2 MEQ/L CHLORIDE (test code = 2215) 97 MEQ/L CARBON DIOXIDE (test code = 2206) 18 MEQ/L CALCIUM (test code = 2209) 9.1 MG/DL PROTEIN, TOTAL (test code = 2229) 7.3 G/DL ALBUMIN (test code = 2201) 4.5 G/DL CALC GLOBULIN (test code = 2240) 2.8 G/DL CALC A/G RATIO (test code = 2234) 1.6 RATIO BILIRUBIN, TOTAL (test code = 2207) 0.2 MG/DL ALKALINE PHOSPHATASE (test code = 2204) 72 U/L AST (test code = 2218) 21 U/L ALT (test code = 2219) 41 U/L Yuri KleinLIPID [id number] 00:00:00* Test Item Value Reference Range Interpretation Comme nts CHOLESTEROL (test code = 2210) 265 MG/DL TRIGLYCERIDES (test code = 2232) 541 MG/DL HDL CHOLESTEROL (test code = 2220) 36 MG/DL CALC LDL CHOL (test code = 2237) NOTE MG/DL RISK RATIO LDL/HDL (test cod e = 2238) (NOTE) RATIO Yuri [id number] 00:00:00* Test Item Value Reference Range Interpretation Comme nts TSH (test code = 2821) 2.39 UIU/ML Yuri KleinRHEUMATOID FACTOR, [id number] 00:00:00* Test Item Value Reference Range Interpretation Comme nts RHEUMATOID FACTOR, QUANT (te st code = 3502) <10 IU/ML Yuri [id number] 00:00:00* Test Item Value Reference Range Interpretation Comme nts TESTOSTERONE (test code = 2830) 394 NG/DL Yuri KleinPSA, [id number] 00:00:00* Test Item Value Reference Range Interpretation Comme nts PSA, TOTAL (test code = 2606) 0.54 NG/ML Yuri KleinCOMPREHENSIVE METABOLIC [id number] 00:00:00* Test Item Value Reference Range Interpretation Comme nts GLUCOSE (test code = 2217) 123 MG/DL BUN (test code = 2208) 15 MG/DL CREATININE (test code = 2214) 1.02 MG/DL eGFR AMER. (test cod e = 91489) 105 ML/MIN/1.73 eGFR NON- AMER. (test code = 80444) 91 ML/MIN/1.73 CALC BUN/CREAT (test code = 2235) 15 RATIO SODIUM (test code = 2231) 141 MEQ/L POTASSIUM (test code = 2228) 4.2 MEQ/L CHLORIDE (test code = 2215) 97 MEQ/L CARBON DIOXIDE (test code = 2206) 18 MEQ/L CALCIUM (test code = 2209) 9.1 MG/DL PROTEIN, TOTAL (test code = 2229) 7.3 G/DL ALBUMIN (test code = 2201) 4.5 G/DL CALC GLOBULIN (test code = 2240) 2.8 G/DL CALC A/G RATIO (test code = 2234) 1.6 RATIO BILIRUBIN, TOTAL (test code = 2207) 0.2 MG/DL ALKALINE PHOSPHATASE (test code = 2204) 72 U/L AST (test code = 2218) 21 U/L ALT (test code = 2219) 41 U/L Yuri KleinLIPID [id number] 00:00:00* Test Item Value Reference Range Interpretation Comme nts CHOLESTEROL (test code = 2210) 265 MG/DL TRIGLYCERIDES (test code = 2232) 541 MG/DL HDL CHOLESTEROL (test code = 2220) 36 MG/DL CALC LDL CHOL (test code = 2237) NOTE MG/DL RISK RATIO LDL/HDL (test cod e = 2238) (NOTE) RATIO Yuri Beverly [id number] 00:00:00* Test Item Value Reference Range Interpretation Comme mitul TSH (test code = 2821) 2.39 UIU/ML Yuri KleinRHEUMATOID FACTOR, [id number] 00:00:00* Test Item Value Reference Range Interpretation Comme nts RHEUMATOID FACTOR, QUANT (te st code = 3502) <10 IU/ML Yuri [id number] 00:00:00* Test Item Value Reference Range Interpretation Comme nts TESTOSTERONE (test code = 2830) 394 NG/DL Yuri KleinPSA, [id number] 00:00:00* Test Item Value Reference Range Interpretation Comme nts PSA, TOTAL (test code = 2606) 0.54 NG/ML Yuri KleinCOMPREHENSIVE METABOLIC [id number] 00:00:00* Test Item Value Reference Range Interpretation Comme nts GLUCOSE (test code = 2217) 123 MG/DL BUN (test code = 2208) 15 MG/DL CREATININE (test code = 2214) 1.02 MG/DL eGFR AMER. (test cod e = 83453) 105 ML/MIN/1.73 eGFR NON- AMER. (test code = 23790) 91 ML/MIN/1.73 CALC BUN/CREAT (test code = 2235) 15 RATIO SODIUM (test code = 2231) 141 MEQ/L POTASSIUM (test code = 2228) 4.2 MEQ/L CHLORIDE (test code = 2215) 97 MEQ/L CARBON DIOXIDE (test code = 2206) 18 MEQ/L CALCIUM (test code = 2209) 9.1 MG/DL PROTEIN, TOTAL (test code = 2229) 7.3 G/DL ALBUMIN (test code = 2201) 4.5 G/DL CALC GLOBULIN (test code = 2240) 2.8 G/DL CALC A/G RATIO (test code = 2234) 1.6 RATIO BILIRUBIN, TOTAL (test code = 2207) 0.2 MG/DL ALKALINE PHOSPHATASE (test code = 2204) 72 U/L AST (test code = 2218) 21 U/L ALT (test code = 2219) 41 U/L Yuri KleinLIPID [id number] 00:00:00* Test Item Value Reference Range Interpretation Comme nts CHOLESTEROL (test code = 2210) 265 MG/DL TRIGLYCERIDES (test code = 2232) 541 MG/DL HDL CHOLESTEROL (test code = 2220) 36 MG/DL CALC LDL CHOL (test code = 2237) NOTE MG/DL RISK RATIO LDL/HDL (test cod e = 2238) (NOTE) RATIO Yuri Beverly [id number] 00:00:00* Test Item Value Reference Range Interpretation Comme nts TSH (test code = 2821) 2.39 UIU/ML Yuri KleinRHEUMATOID FACTOR, [id number] 00:00:00* Test Item Value Reference Range Interpretation Comme nts RHEUMATOID FACTOR, QUANT (te st code = 3502) <10 IU/ML Yuri [id number] 00:00:00* Test Item Value Reference Range Interpretation Comme nts TESTOSTERONE (test code = 2830) 394 NG/DL Yuri KleinPSA, [id number] 00:00:00* Test Item Value Reference Range Interpretation Comme nts PSA, TOTAL (test code = 2606) 0.54 NG/ML Yuri KleinCOMPREHENSIVE METABOLIC [id number] 00:00:00* Test Item Value Reference Range Interpretation Comme nts GLUCOSE (test code = 2217) 123 MG/DL BUN (test code = 2208) 15 MG/DL CREATININE (test code = 2214) 1.02 MG/DL eGFR AMER. (test cod e = 71599) 105 ML/MIN/1.73 eGFR NON- AMER. (test code = 13232) 91 ML/MIN/1.73 CALC BUN/CREAT (test code = 2235) 15 RATIO SODIUM (test code = 2231) 141 MEQ/L POTASSIUM (test code = 2228) 4.2 MEQ/L CHLORIDE (test code = 2215) 97 MEQ/L CARBON DIOXIDE (test code = 2206) 18 MEQ/L CALCIUM (test code = 2209) 9.1 MG/DL PROTEIN, TOTAL (test code = 2229) 7.3 G/DL ALBUMIN (test code = 2201) 4.5 G/DL CALC GLOBULIN (test code = 2240) 2.8 G/DL CALC A/G RATIO (test code = 2234) 1.6 RATIO BILIRUBIN, TOTAL (test code = 2207) 0.2 MG/DL ALKALINE PHOSPHATASE (test code = 2204) 72 U/L AST (test code = 2218) 21 U/L ALT (test code = 2219) 41 U/L Yuri KleinLIPID [id number] 00:00:00* Test Item Value Reference Range Interpretation Comme nts CHOLESTEROL (test code = 2210) 265 MG/DL TRIGLYCERIDES (test code = 2232) 541 MG/DL HDL CHOLESTEROL (test code = 2220) 36 MG/DL CALC LDL CHOL (test code = 2237) NOTE MG/DL RISK RATIO LDL/HDL (test cod e = 2238) (NOTE) RATIO Yuri KleinHEMOGLOBIN [id number] 00:00:00* Test Item Value Reference Range Interpretation Comme nts HEMOGLOBIN A1c (test code = 75090) 5.8 % Yuri KleinSEDIMENTATION [id number] 00:00:00* Test Item Value Reference Range Interpretation Comme nts SEDIMENTATION RATE (test cod e = 1017) 3 MM/HOUR Yuri KleinCBC W/AUTO [id number] 00:00:00* Test Item Value Reference Range Interpretation Comme nts WBC (test code = 1001) 7.5 K/UL RBC (test code = 1002) 5.30 M/UL HEMOGLOBIN (test code = 1003) 16.6 G/DL HEMATOCRIT (test code = 1004) 48.4 % MCV (test code = 1005) 91.3 fL MCH (test code = 1006) 31.3 PG MCHC (test code = 1007) 34.3 G/DL RDW (test code = 1038) 12.4 % NEUTROPHILS (test code = 1008) 57.5 % LYMPHOCYTES (test code = 1010) 32.5 % MONOCYTES (test code = 1011) 8.5 % EOSINOPHILS (test code = 1012) 1.1 % BASOPHILS (test code = 1013) 0.4 % PLATELET COUNT (test code = 1015) 195 K/UL Yuri Beverly AustinHEMOGLOBIN [id number] 00:00:00* Test Item Value Reference Range Interpretation Comme nts HEMOGLOBIN A1c (test code = 69253) 5.8 % Yuri F AustinSEDIMENTATION [id number] 00:00:00* Test Item Value Reference Range Interpretation Comme nts SEDIMENTATION RATE (test cod e = 1017) 3 MM/HOUR Yuri Beverly AustinCBC W/AUTO [id number] 00:00:00* Test Item Value Reference Range Interpretation Comme nts WBC (test code = 1001) 7.5 K/UL RBC (test code = 1002) 5.30 M/UL HEMOGLOBIN (test code = 1003) 16.6 G/DL HEMATOCRIT (test code = 1004) 48.4 % MCV (test code = 1005) 91.3 fL MCH (test code = 1006) 31.3 PG MCHC (test code = 1007) 34.3 G/DL RDW (test code = 1038) 12.4 % NEUTROPHILS (test code = 1008) 57.5 % LYMPHOCYTES (test code = 1010) 32.5 % MONOCYTES (test code = 1011) 8.5 % EOSINOPHILS (test code = 1012) 1.1 % BASOPHILS (test code = 1013) 0.4 % PLATELET COUNT (test code = 1015) 195 K/UL Yuri Beverly AustinHEMOGLOBIN [id number] 00:00:00* Test Item Value Reference Range Interpretation Comme nts HEMOGLOBIN A1c (test code = 81268) 5.8 % Yuri F AustinSEDIMENTATION [id number] 00:00:00* Test Item Value Reference Range Interpretation Comme nts SEDIMENTATION RATE (test cod e = 1017) 3 MM/HOUR Yrui Beverly AustinCBC W/AUTO [id number] 00:00:00* Test Item Value Reference Range Interpretation Comme nts WBC (test code = 1001) 7.5 K/UL RBC (test code = 1002) 5.30 M/UL HEMOGLOBIN (test code = 1003) 16.6 G/DL HEMATOCRIT (test code = 1004) 48.4 % MCV (test code = 1005) 91.3 fL MCH (test code = 1006) 31.3 PG MCHC (test code = 1007) 34.3 G/DL RDW (test code = 1038) 12.4 % NEUTROPHILS (test code = 1008) 57.5 % LYMPHOCYTES (test code = 1010) 32.5 % MONOCYTES (test code = 1011) 8.5 % EOSINOPHILS (test code = 1012) 1.1 % BASOPHILS (test code = 1013) 0.4 % PLATELET COUNT (test code = 1015) 195 K/UL Yuri Beverly AustinHEMOGLOBIN [id number] 00:00:00* Test Item Value Reference Range Interpretation Comme nts HEMOGLOBIN A1c (test code = 42424) 5.8 % Yuri Beverly AustinSEDIMENTATION [id number] 00:00:00* Test Item Value Reference Range Interpretation Comme nts SEDIMENTATION RATE (test cod e = 1017) 3 MM/HOUR Yuri Beverly AustinCBC W/AUTO [id number] 00:00:00* Test Item Value Reference Range Interpretation Comme nts WBC (test code = 1001) 7.5 K/UL RBC (test code = 1002) 5.30 M/UL HEMOGLOBIN (test code = 1003) 16.6 G/DL HEMATOCRIT (test code = 1004) 48.4 % MCV (test code = 1005) 91.3 fL MCH (test code = 1006) 31.3 PG MCHC (test code = 1007) 34.3 G/DL RDW (test code = 1038) 12.4 % NEUTROPHILS (test code = 1008) 57.5 % LYMPHOCYTES (test code = 1010) 32.5 % MONOCYTES (test code = 1011) 8.5 % EOSINOPHILS (test code = 1012) 1.1 % BASOPHILS (test code = 1013) 0.4 % PLATELET COUNT (test code = 1015) 195 K/UL Yuri Beverly AustinHEMOGLOBIN [id number] 00:00:00* Test Item Value Reference Range Interpretation Comme nts HEMOGLOBIN A1c (test code = 77115) 5.8 % Yuri Beverly AustinSEDIMENTATION [id number] 00:00:00* Test Item Value Reference Range Interpretation Comme nts SEDIMENTATION RATE (test cod e = 1017) 3 MM/HOUR Yuri KleinCBC W/AUTO [id number] 00:00:00* Test Item Value Reference Range Interpretation Comme nts WBC (test code = 1001) 7.5 K/UL RBC (test code = 1002) 5.30 M/UL HEMOGLOBIN (test code = 1003) 16.6 G/DL HEMATOCRIT (test code = 1004) 48.4 % MCV (test code = 1005) 91.3 fL MCH (test code = 1006) 31.3 PG MCHC (test code = 1007) 34.3 G/DL RDW (test code = 1038) 12.4 % NEUTROPHILS (test code = 1008) 57.5 % LYMPHOCYTES (test code = 1010) 32.5 % MONOCYTES (test code = 1011) 8.5 % EOSINOPHILS (test code = 1012) 1.1 % BASOPHILS (test code = 1013) 0.4 % PLATELET COUNT (test code = 1015) 195 K/UL Yuri Beverly AustinCORTISOL, A.M. [id number] 00:00:00* Test Item Value Reference Range Interpretation Comme nts CORTISOL, A.M. SPECIMEN (bev t code = 4267) 11 UG/DL Yuri Beverly [id number] 00:00:00* Test Item Value Reference Range Interpretation Comme nts MAGNESIUM (test code = 2226) 1.9 MG/DL Yuri Beverly AustinCORTISOL, P.M. [id number] 00:00:00* Test Item Value Reference Range Interpretation Comme nts CORTISOL, P.M. SPECIMEN (bev t code = 4269) 7 UG/DL Yuri Beverly AustinCORTISOL, A.M. [id number] 00:00:00* Test Item Value Reference Range Interpretation Comme nts CORTISOL, A.M. SPECIMEN (bev t code = 4267) 11 UG/DL Yuri Beverly [id number] 00:00:00* Test Item Value Reference Range Interpretation Comme nts MAGNESIUM (test code = 2226) 1.9 MG/DL Yuri Beverly AustinCORTISOL, P.M. [id number] 00:00:00* Test Item Value Reference Range Interpretation Comme nts CORTISOL, P.M. SPECIMEN (bev t code = 4269) 7 UG/DL Yuri F AustinCORTISOL, A.M. [id number] 00:00:00* Test Item Value Reference Range Interpretation Comme nts CORTISOL, A.M. SPECIMEN (bev t code = 4267) 11 UG/DL Yuri F [id number] 00:00:00* Test Item Value Reference Range Interpretation Comme nts MAGNESIUM (test code = 2226) 1.9 MG/DL Yuri F AustinCORTISOL, P.M. [id number] 00:00:00* Test Item Value Reference Range Interpretation Comme nts CORTISOL, P.M. SPECIMEN (bev t code = 4269) 7 UG/DL Yuri F AustinCORTISOL, A.M. [id number] 00:00:00* Test Item Value Reference Range Interpretation Comme nts CORTISOL, A.M. SPECIMEN (bev t code = 4267) 11 UG/DL Yuri F [id number] 00:00:00* Test Item Value Reference Range Interpretation Comme nts MAGNESIUM (test code = 2226) 1.9 MG/DL Yuri F AustinCORTISOL, P.M. [id number] 00:00:00* Test Item Value Reference Range Interpretation Comme nts CORTISOL, P.M. SPECIMEN (bev t code = 4269) 7 UG/DL Yuri F AustinCORTISOL, A.M. [id number] 00:00:00* Test Item Value Reference Range Interpretation Comme nts CORTISOL, A.M. SPECIMEN (bev t code = 4267) 11 UG/DL Yuri F [id number] 00:00:00* Test Item Value Reference Range Interpretation Comme nts MAGNESIUM (test code = 2226) 1.9 MG/DL Yuri F AustinCORTISOL, P.M. [id number] 00:00:00* Test Item Value Reference Range Interpretation Comme nts CORTISOL, P.M. SPECIMEN (bev t code = 4269) 7 UG/DL Yuri F [id number] 00:00:00* Test Item Value Reference Range Interpretation Comme nts TESTOSTERONE (test code = 2830) 430 NG/DL TESTOSTERONE REF RANGE (test code = 36670) SEE ABOVE Yuri Beverly [id number] 00:00:00* Test Item Value Reference Range Interpretation Comme nts TESTOSTERONE (test code = 2830) 430 NG/DL TESTOSTERONE REF RANGE (test code = 12108) SEE ABOVE Yuri Beverly [id number] 00:00:00* Test Item Value Reference Range Interpretation Comme nts TESTOSTERONE (test code = 2830) 430 NG/DL TESTOSTERONE REF RANGE (test code = 32393) SEE ABOVE Yuri Beverly [id number] 00:00:00* Test Item Value Reference Range Interpretation Comme nts TESTOSTERONE (test code = 2830) 430 NG/DL TESTOSTERONE REF RANGE (test code = 03954) SEE ABOVE Yuri Beverly [id number] 00:00:00* Test Item Value Reference Range Interpretation Comme nts TESTOSTERONE (test code = 2830) 430 NG/DL TESTOSTERONE REF RANGE (test code = 05802) SEE ABOVE Yuri Beverly [id number] 00:00:00* Test Item Value Reference Range Interpretation Comme nts PROLACTIN (test code = 2800) 5.0 NG/ML Yuri Beverly AustinPSA, FREE AND [id number] 00:00:00* Test Item Value Reference Range Interpretation Comme nts PROSTATIC SPECIFIC AG (test code = 975829) 0.7 NG/ML FREE PSA (test code = 532102) 0.34 NG/ML % FREE PSA (test code = 312474) 49 % Yuri Beverly AustinFOLLICLE STIM [id number] 00:00:00* Test Item Value Reference Range Interpretation Comme nts FOLLICLE STIM HORMONE (test code = 2700) 2.4 MIU/ML FSH INTERPRETATION: (test co de = 89658) (NOTE) Yuri Beverly [id number] 00:00:00* Test Item Value Reference Range Interpretation Comme nts PROLACTIN (test code = 2800) 5.0 NG/ML Yuri Beverly AustinPSA, FREE AND [id number] 00:00:00* Test Item Value Reference Range Interpretation Comme nts PROSTATIC SPECIFIC AG (test code = 673314) 0.7 NG/ML FREE PSA (test code = 586967) 0.34 NG/ML % FREE PSA (test code = 195337) 49 % Yuri Beverly AustinFOLLICLE STIM [id number] 00:00:00* Test Item Value Reference Range Interpretation Comme nts FOLLICLE STIM HORMONE (test code = 2700) 2.4 MIU/ML FSH INTERPRETATION: (test co de = 67198) (NOTE) Yuri Beveryl [id number] 00:00:00* Test Item Value Reference Range Interpretation Comme nts PROLACTIN (test code = 2800) 5.0 NG/ML Yuri Beverly AustinPSA, FREE AND [id number] 00:00:00* Test Item Value Reference Range Interpretation Comme nts PROSTATIC SPECIFIC AG (test code = 989794) 0.7 NG/ML FREE PSA (test code = 738590) 0.34 NG/ML % FREE PSA (test code = 224974) 49 % Yuri Beverly AustinFOLLICLE STIM [id number] 00:00:00* Test Item Value Reference Range Interpretation Comme nts FOLLICLE STIM HORMONE (test code = 2700) 2.4 MIU/ML FSH INTERPRETATION: (test co de = 13158) (NOTE) Yuri Beverly [id number] 00:00:00* Test Item Value Reference Range Interpretation Comme nts PROLACTIN (test code = 2800) 5.0 NG/ML Yuri Beverly AustinPSA, FREE AND [id number] 00:00:00* Test Item Value Reference Range Interpretation Comme nts PROSTATIC SPECIFIC AG (test code = 056964) 0.7 NG/ML FREE PSA (test code = 873011) 0.34 NG/ML % FREE PSA (test code = 507116) 49 % Yuri Beverly AustinFOLLICLE STIM [id number] 00:00:00* Test Item Value Reference Range Interpretation Comme nts FOLLICLE STIM HORMONE (test code = 2700) 2.4 MIU/ML FSH INTERPRETATION: (test co de = 71987) (NOTE) Yuri Beverly [id number] 00:00:00* Test Item Value Reference Range Interpretation Comme nts PROLACTIN (test code = 2800) 5.0 NG/ML Yuri F AustinPSA, FREE AND [id number] 00:00:00* Test Item Value Reference Range Interpretation Comme nts PROSTATIC SPECIFIC AG (test code = 553388) 0.7 NG/ML FREE PSA (test code = 569377) 0.34 NG/ML % FREE PSA (test code = 088769) 49 % Yuri KleinFOLLICLE STIM [id number] 00:00:00* Test Item Value Reference Range Interpretation Comme nts FOLLICLE STIM HORMONE (test code = 2700) 2.4 MIU/ML FSH INTERPRETATION: (test co de = 72479) (NOTE) Yuri KleinHEMOGLOBIN [id number] 00:00:00* Test Item Value Reference Range Interpretation Comme nts HEMOGLOBIN A1c (test code = 38281) 5.8 % Yuri KleinTHYROID II PROFILE (T3U, T4, T7, TSH)2015-04-23 00:00:00* Test Item Value Reference Range Interpretation Comme nts T3 UPTAKE (test code = 2817) 28.4 % T4 (THYROXINE) (test code = 2819) 7.5 UG/DL CALCULATED T7 (FTI) (test co de = 2820) 2.13 TSH (test code = 2821) 2.8 UIU/ML Yuri KleinCOMPREHENSIVE METABOLIC [id number] 00:00:00* Test Item Value Reference Range Interpretation Comme nts GLUCOSE (test code = 2217) 89 MG/DL BUN (test code = 2208) 13 MG/DL CREATININE (test code = 2214) 1.0 MG/DL eGFR AMER. (test cod e = 38446) 101 ML/MIN/1.73 eGFR NON- AMER. (test code = 92675) 83 ML/MIN/1.73 CALCULATED BUN/CREAT (test code = 2235) 13 RATIO SODIUM (test code = 2231) 140 MEQ/L POTASSIUM (test code = 2228) 4.8 MEQ/L CHLORIDE (test code = 2215) 96 MEQ/L CARBON DIOXIDE (test code = 2206) 29 MEQ/L CALCIUM (test code = 2209) 10.2 MG/DL PROTEIN, TOTAL (test code = 2229) 7.8 G/DL ALBUMIN (test code = 2201) 4.9 G/DL CALCULATED GLOBULIN (test code = 2240) 2.9 G/DL CALCULATED A/G RATIO (test code = 2234) 1.7 RATIO BILIRUBIN, TOTAL (test code = 2207) 1.0 MG/DL ALKALINE PHOSPHATASE (test code = 2204) 72 U/L SGOT (AST) (test code = 2218) 19 U/L SGPT (ALT) (test code = 2219) 24 U/L Yuri KleinLIPID [id number] 00:00:00* Test Item Value Reference Range Interpretation Comme nts CHOLESTEROL (test code = 2210) 259 MG/DL TRIGLYCERIDES (test code = 2232) 176 MG/DL HDL CHOLESTEROL (test code = 2220) 48 MG/DL CALCULATED LDL CHOL (test co de = 2237) 176 MG/DL RISK RATIO LDL/HDL (test cod e = 2238) 3.66 RATIO Yuri KleinCBC W/AUTO [id number] 00:00:00* Test Item Value Reference Range Interpretation Comme nts WBC (test code = 1001) 6.9 K/UL RBC (test code = 1002) 5.65 M/UL HEMOGLOBIN (test code = 1003) 17.7 G/DL HEMATOCRIT (test code = 1004) 52.2 % MCV (test code = 1005) 92.4 fL MCH (test code = 1006) 31.3 PG MCHC (test code = 1007) 33.9 G/DL RDW (test code = 1038) 13.6 % NEUTROPHILS (test code = 1008) 63 % LYMPHOCYTES (test code = 1010) 30 % MONOCYTES (test code = 1011) 5 % EOSINOPHILS (test code = 1012) 1 % PLATELET COUNT (test code = 1015) 198 K/UL Yuri KleinHEMOGLOBIN [id number] 00:00:00* Test Item Value Reference Range Interpretation Comme [facility] HEMOGLOBIN A1c (test code = 15746) 5.8 % Yuri KleinTHYROID II PROFILE (T3U, T4, T7, TSH)2015-04-23 00:00:00* Test Item Value Reference Range Interpretation Comme nts T3 UPTAKE (test code = 2817) 28.4 % T4 (THYROXINE) (test code = 2819) 7.5 UG/DL CALCULATED T7 (FTI) (test co de = 2820) 2.13 TSH (test code = 2821) 2.8 UIU/ML Yuri KleinCOMPREHENSIVE METABOLIC [id number] 00:00:00* Test Item Value Reference Range Interpretation Comme nts GLUCOSE (test code = 2217) 89 MG/DL BUN (test code = 2208) 13 MG/DL CREATININE (test code = 2214) 1.0 MG/DL eGFR AMER. (test cod e = 10254) 101 ML/MIN/1.73 eGFR NON- AMER. (test code = 29113) 83 ML/MIN/1.73 CALCULATED BUN/CREAT (test code = 2235) 13 RATIO SODIUM (test code = 2231) 140 MEQ/L POTASSIUM (test code = 2228) 4.8 MEQ/L CHLORIDE (test code = 2215) 96 MEQ/L CARBON DIOXIDE (test code = 2206) 29 MEQ/L CALCIUM (test code = 2209) 10.2 MG/DL PROTEIN, TOTAL (test code = 2229) 7.8 G/DL ALBUMIN (test code = 2201) 4.9 G/DL CALCULATED GLOBULIN (test code = 2240) 2.9 G/DL CALCULATED A/G RATIO (test code = 2234) 1.7 RATIO BILIRUBIN, TOTAL (test code = 2207) 1.0 MG/DL ALKALINE PHOSPHATASE (test code = 2204) 72 U/L SGOT (AST) (test code = 2218) 19 U/L SGPT (ALT) (test code = 2219) 24 U/L Yuri KleinLIPID [id number] 00:00:00* Test Item Value Reference Range Interpretation Comme nts CHOLESTEROL (test code = 2210) 259 MG/DL TRIGLYCERIDES (test code = 2232) 176 MG/DL HDL CHOLESTEROL (test code = 2220) 48 MG/DL CALCULATED LDL CHOL (test co de = 2237) 176 MG/DL RISK RATIO LDL/HDL (test cod e = 2238) 3.66 RATIO Yuri KleinCBC W/AUTO [id number] 00:00:00* Test Item Value Reference Range Interpretation Comme nts WBC (test code = 1001) 6.9 K/UL RBC (test code = 1002) 5.65 M/UL HEMOGLOBIN (test code = 1003) 17.7 G/DL HEMATOCRIT (test code = 1004) 52.2 % MCV (test code = 1005) 92.4 fL MCH (test code = 1006) 31.3 PG MCHC (test code = 1007) 33.9 G/DL RDW (test code = 1038) 13.6 % NEUTROPHILS (test code = 1008) 63 % LYMPHOCYTES (test code = 1010) 30 % MONOCYTES (test code = 1011) 5 % EOSINOPHILS (test code = 1012) 1 % PLATELET COUNT (test code = 1015) 198 K/UL Yuri eBverly ErnieHEMOGLOBIN [id number] 00:00:00* Test Item Value Reference Range Interpretation Comme nts HEMOGLOBIN A1c (test code = 26052) 5.8 % Yuri Beverly ErnieTHYROID II PROFILE (T3U, T4, T7, TSH)2015-04-23 00:00:00* Test Item Value Reference Range Interpretation Comme nts T3 UPTAKE (test code = 2817) 28.4 % T4 (THYROXINE) (test code = 2819) 7.5 UG/DL CALCULATED T7 (FTI) (test co de = 2820) 2.13 TSH (test code = 2821) 2.8 UIU/ML Yuri Beverly ErnieCOMPREHENSIVE METABOLIC [id number] 00:00:00* Test Item Value Reference Range Interpretation Comme nts GLUCOSE (test code = 2217) 89 MG/DL BUN (test code = 2208) 13 MG/DL CREATININE (test code = 2214) 1.0 MG/DL eGFR AMER. (test cod e = 99962) 101 ML/MIN/1.73 eGFR NON- AMER. (test code = 29324) 83 ML/MIN/1.73 CALCULATED BUN/CREAT (test code = 2235) 13 RATIO SODIUM (test code = 2231) 140 MEQ/L POTASSIUM (test code = 2228) 4.8 MEQ/L CHLORIDE (test code = 2215) 96 MEQ/L CARBON DIOXIDE (test code = 2206) 29 MEQ/L CALCIUM (test code = 2209) 10.2 MG/DL PROTEIN, TOTAL (test code = 2229) 7.8 G/DL ALBUMIN (test code = 2201) 4.9 G/DL CALCULATED GLOBULIN (test code = 2240) 2.9 G/DL CALCULATED A/G RATIO (test code = 2234) 1.7 RATIO BILIRUBIN, TOTAL (test code = 2207) 1.0 MG/DL ALKALINE PHOSPHATASE (test code = 2204) 72 U/L SGOT (AST) (test code = 2218) 19 U/L SGPT (ALT) (test code = 2219) 24 U/L Yuri KleinLIPID [id number] 00:00:00* Test Item Value Reference Range Interpretation Comme nts CHOLESTEROL (test code = 2210) 259 MG/DL TRIGLYCERIDES (test code = 2232) 176 MG/DL HDL CHOLESTEROL (test code = 2220) 48 MG/DL CALCULATED LDL CHOL (test co de = 2237) 176 MG/DL RISK RATIO LDL/HDL (test cod e = 2238) 3.66 RATIO Yuri KleinCBC W/AUTO [id number] 00:00:00* Test Item Value Reference Range Interpretation Comme nts WBC (test code = 1001) 6.9 K/UL RBC (test code = 1002) 5.65 M/UL HEMOGLOBIN (test code = 1003) 17.7 G/DL HEMATOCRIT (test code = 1004) 52.2 % MCV (test code = 1005) 92.4 fL MCH (test code = 1006) 31.3 PG MCHC (test code = 1007) 33.9 G/DL RDW (test code = 1038) 13.6 % NEUTROPHILS (test code = 1008) 63 % LYMPHOCYTES (test code = 1010) 30 % MONOCYTES (test code = 1011) 5 % EOSINOPHILS (test code = 1012) 1 % PLATELET COUNT (test code = 1015) 198 K/UL Yuri KleinHEMOGLOBIN [id number] 00:00:00* Test Item Value Reference Range Interpretation Comme [facility] HEMOGLOBIN A1c (test code = 42497) 5.8 % Yuri KleinTHYROID II PROFILE (T3U, T4, T7, TSH)2015-04-23 00:00:00* Test Item Value Reference Range Interpretation Comme nts T3 UPTAKE (test code = 2817) 28.4 % T4 (THYROXINE) (test code = 2819) 7.5 UG/DL CALCULATED T7 (FTI) (test co de = 2820) 2.13 TSH (test code = 2821) 2.8 UIU/ML Yuri KleinCOMPREHENSIVE METABOLIC [id number] 00:00:00* Test Item Value Reference Range Interpretation Comme nts GLUCOSE (test code = 2217) 89 MG/DL BUN (test code = 2208) 13 MG/DL CREATININE (test code = 2214) 1.0 MG/DL eGFR AMER. (test cod e = 89665) 101 ML/MIN/1.73 eGFR NON- AMER. (test code = 83127) 83 ML/MIN/1.73 CALCULATED BUN/CREAT (test code = 2235) 13 RATIO SODIUM (test code = 2231) 140 MEQ/L POTASSIUM (test code = 2228) 4.8 MEQ/L CHLORIDE (test code = 2215) 96 MEQ/L CARBON DIOXIDE (test code = 2206) 29 MEQ/L CALCIUM (test code = 2209) 10.2 MG/DL PROTEIN, TOTAL (test code = 2229) 7.8 G/DL ALBUMIN (test code = 2201) 4.9 G/DL CALCULATED GLOBULIN (test code = 2240) 2.9 G/DL CALCULATED A/G RATIO (test code = 2234) 1.7 RATIO BILIRUBIN, TOTAL (test code = 2207) 1.0 MG/DL ALKALINE PHOSPHATASE (test code = 2204) 72 U/L SGOT (AST) (test code = 2218) 19 U/L SGPT (ALT) (test code = 2219) 24 U/L Yuri KleinLIPID [id number] 00:00:00* Test Item Value Reference Range Interpretation Comme nts CHOLESTEROL (test code = 2210) 259 MG/DL TRIGLYCERIDES (test code = 2232) 176 MG/DL HDL CHOLESTEROL (test code = 2220) 48 MG/DL CALCULATED LDL CHOL (test co de = 2237) 176 MG/DL RISK RATIO LDL/HDL (test cod e = 2238) 3.66 RATIO Yuri Siria ErnieCBC W/AUTO [id number] 00:00:00* Test Item Value Reference Range Interpretation Comme nts WBC (test code = 1001) 6.9 K/UL RBC (test code = 1002) 5.65 M/UL HEMOGLOBIN (test code = 1003) 17.7 G/DL HEMATOCRIT (test code = 1004) 52.2 % MCV (test code = 1005) 92.4 fL MCH (test code = 1006) 31.3 PG MCHC (test code = 1007) 33.9 G/DL RDW (test code = 1038) 13.6 % NEUTROPHILS (test code = 1008) 63 % LYMPHOCYTES (test code = 1010) 30 % MONOCYTES (test code = 1011) 5 % EOSINOPHILS (test code = 1012) 1 % PLATELET COUNT (test code = 1015) 198 K/UL Yuri KleinHEMOGLOBIN [id number] 00:00:00* Test Item Value Reference Range Interpretation Comme nts HEMOGLOBIN A1c (test code = 97188) 5.8 % Yuri KleinTHYROID II PROFILE (T3U, T4, T7, TSH)2015-04-23 00:00:00* Test Item Value Reference Range Interpretation Comme nts T3 UPTAKE (test code = 2817) 28.4 % T4 (THYROXINE) (test code = 2819) 7.5 UG/DL CALCULATED T7 (FTI) (test co de = 2820) 2.13 TSH (test code = 2821) 2.8 UIU/ML Yuri Beverly ErnieCOMPREHENSIVE METABOLIC [id number] 00:00:00* Test Item Value Reference Range Interpretation Comme nts GLUCOSE (test code = 2217) 89 MG/DL BUN (test code = 2208) 13 MG/DL CREATININE (test code = 2214) 1.0 MG/DL eGFR AMER. (test cod e = 85609) 101 ML/MIN/1.73 eGFR NON- AMER. (test code = 61961) 83 ML/MIN/1.73 CALCULATED BUN/CREAT (test code = 2235) 13 RATIO SODIUM (test code = 2231) 140 MEQ/L POTASSIUM (test code = 2228) 4.8 MEQ/L CHLORIDE (test code = 2215) 96 MEQ/L CARBON DIOXIDE (test code = 2206) 29 MEQ/L CALCIUM (test code = 2209) 10.2 MG/DL PROTEIN, TOTAL (test code = 2229) 7.8 G/DL ALBUMIN (test code = 2201) 4.9 G/DL CALCULATED GLOBULIN (test code = 2240) 2.9 G/DL CALCULATED A/G RATIO (test code = 2234) 1.7 RATIO BILIRUBIN, TOTAL (test code = 2207) 1.0 MG/DL ALKALINE PHOSPHATASE (test code = 2204) 72 U/L SGOT (AST) (test code = 2218) 19 U/L SGPT (ALT) (test code = 2219) 24 U/L Yuri KleinLIPID [id number] 00:00:00* Test Item Value Reference Range Interpretation Comme nts CHOLESTEROL (test code = 2210) 259 MG/DL TRIGLYCERIDES (test code = 2232) 176 MG/DL HDL CHOLESTEROL (test code = 2220) 48 MG/DL CALCULATED LDL CHOL (test co de = 2237) 176 MG/DL RISK RATIO LDL/HDL (test cod e = 2238) 3.66 RATIO Yuri KleinCBC W/AUTO [id number] 00:00:00* Test Item Value Reference Range Interpretation Comme nts WBC (test code = 1001) 6.9 K/UL RBC (test code = 1002) 5.65 M/UL HEMOGLOBIN (test code = 1003) 17.7 G/DL HEMATOCRIT (test code = 1004) 52.2 % MCV (test code = 1005) 92.4 fL MCH (test code = 1006) 31.3 PG MCHC (test code = 1007) 33.9 G/DL RDW (test code = 1038) 13.6 % NEUTROPHILS (test code = 1008) 63 % LYMPHOCYTES (test code = 1010) 30 % MONOCYTES (test code = 1011) 5 % EOSINOPHILS (test code = 1012) 1 % PLATELET COUNT (test code = 1015) 198 K/UL Yuri Siria Ernie
[2024-11-23] MEDS ORDERED: ACETAMINOPHEN 500 MG TAB ONE (07:50)
[2024-11-23] MEDS ORDERED: methocarbamoL 750 MG TAB ONE (07:50)
[2024-11-23] MEDS ORDERED: LIDOCAINE 4% PATCH ONE (07:51)
[2024-11-23] MEDS ORDERED: KETOROLAC 30 MG/ML INJ ONE (07:51)
--- NOTE | 2024-11-23 08:15 | ER ---
Nurse's Notes [facility] Name: Kostas Castelan Age: 49 yrs Sex: Male : 1975 Arrival Date: 11/23/2024 Time: 07:25 Bed 13 Private MD: Diagnosis: Trapezius Muscle Spasm Presentation: 11/23 07:40 Chief complaint: Left upper back pain that radiates to left arm x 3 days. Coronavirus hb screen: At this time, the client does not indicate any symptoms associated with coronavirus-19. Ebola Screen: No symptoms or risks identified at this time. Initial Sepsis Screen: Does the patient meet any 2 criteria? No. Patient's initial sepsis screen is negative. Does the patient have a suspected source of infection? No. Patient's initial sepsis screen is negative. Risk Assessment: Do you want to hurt yourself or someone else? Patient reports no desire to harm self or others. Onset of symptoms was November 20, 2024. 07:40 Method Of Arrival: Ambulatory hb 07:40 Acuity: ANA MARIA 4 hb Historical: - Allergies: 07:51 No Known Allergies; hb - Home Meds: 07:51 Metformin Oral [Active]; atorvastatin oral [Active]; unknown HTN med [Active]; hb - PMHx: 07:51 DM2; HTN; hb - PSHx: 07:51 None; hb - Immunization history:: Adult Immunizations up to date. - Infectious Disease History:: Denies. - Social history:: Smoking status: Patient denies any tobacco usage or history of. Screenin:40 [facility] ED Fall Risk Assessment (Adult) History of falling in the last 3 months, rs5 including since admission No falls in past 3 months (0 pts) Confusion or Disorientation No (0 pts) Intoxicated or Sedated No (0 pts) Impaired Gait No (0 pts) Mobility Assist Device Used No (0 pt) Altered Elimination No (0 pt) Score/Fall Risk Level 0 - 2 = Low Risk Oriented to surroundings, Maintained a safe environment. Abuse screen: Denies threats or abuse. Nutritional screening: No deficits noted. Tuberculosis screening: No symptoms or risk factors identified. Assessment: 07:35 General: Appears in no apparent distress. uncomfortable, Behavior is calm, cooperative. rs5 Pain: Complains of pain in left upper back Pain radiates to left shoulder and neck Pain currently is 7 out of 10 on a pain scale. Quality of pain is described as aching, Is continuous. Neuro: Level of Consciousness is awake, alert, obeys commands, Oriented to person, place, time, situation. Cardiovascular: Patient's skin is warm and dry. Respiratory: Airway is patent Respiratory effort is even, unlabored, Respiratory pattern is regular, symmetrical. GI: Abdomen is round non-distended, Abd is soft and non tender X 4 quads. : No signs and/or symptoms were reported regarding the genitourinary system. EENT: No signs and/or symptoms were reported regarding the EENT system. Derm: Skin is intact, Skin is pink, warm \T\ dry. Musculoskeletal: Range of motion: limited in left shoulder. 08:20 Reassessment: Patient and/or family updated on plan of care and expected duration. Pain rs5 level reassessed. Patient is alert, oriented x 3, equal unlabored respirations, skin warm/dry/pink. 08:21 Reassessment: pt left before signing discharge paperwork . rs5 Vital Signs: 07:40 BP 146 / 100; Pulse 74; Resp 16; Temp 98; Pulse Ox 100% ; Weight 77.11 kg; Height 5 ft. hb 9 in. ; Pain 9/10; 08:00 BP 135 / 91; Pulse 77; Resp 17; Pulse Ox 99% on R/A; rs5 07:40 Body Mass Index 25.10 (77.11 kg, 175.26 cm) hb 07:40 Pain Scale: Adult hb ED Course: 07:30 Patient arrived in ED. im 07:31 Gaston Chan MD is Attending Physician. ec2 07:38 Lior Vo, LEFTY is Primary Nurse. rs5 07:40 Patient has correct armband on for positive identification. Placed in gown. Bed in low rs5 position. Call light in reach. Side rails up X2. 07:40 No provider procedures requiring assistance completed. rs5 07:51 Triage completed. hb 07:52 Arm band placed on. hb 08:20 Patient did not have IV access during this emergency room visit. rs5 08:21 Provided Education on: discharge instructions . rs5 Administered Medications: 07:57 Drug: Lidoderm Topical Patch 5 % (700 mg/patch) 1 patches Topical once; leave on for 12 rs5 hours; cover most painful area; may cut into smaller pieces {Note: applied to left upper back.} Route: Topical; Site: affected area; 08:21 Follow up: Response: No adverse reaction; Pain is decreased rs5 07:57 Drug: Acetaminophen PO 1000 mg PO once Route: PO; rs5 08:21 Follow up: Response: No adverse reaction; Pain is decreased rs5 07:58 Drug: Ketorolac IM 30 mg IM once Route: IM; Site: left deltoid; rs5 08:21 Follow up: Response: No adverse reaction; Pain is decreased rs5 07:58 Drug: Methocarbamol PO 750 mg PO once Route: PO; rs5 08:21 Follow up: Response: No adverse reaction; Pain is decreased rs5 Medication: 08:00 VIS not applicable for this client. rs5 Outcome: 08:14 Discharge ordered by . ec2 08:20 Discharged to home ambulatory, rs5 08:20 Condition: stable 08:20 Discharge instructions given to patient, family, Instructed on discharge instructions, follow up and referral plans. medication usage, Demonstrated understanding of instructions, follow-up care, medications, Prescriptions given X 1, 08:22 Patient left the ED. rs5 Signatures: Flora Holley RN RN Lior Vo RN RN rs5 Julee Pavon Edwin, MD MD ec2
--- NOTE | 2024-11-23 08:15 | EDPHYS ---
Physician Documentation [facility] Name: Kostas Castelan Age: 49 yrs Sex: Male : 1975 Arrival Date: 11/23/2024 Time: 07:25 Bed 13 Private MD: ED Physician Gaston Chan HPI: 11/23 07:46 This 49 yrs old Male presents to ER via Unassigned with complaints of Back ec2 Pain, Shoulder Pain, Neck Pain, <24hrs Old. 07:46 Patient arrives today d/t concern for L upper back pain. reports that for the past ec2 several days he has had pain w/ rom of the left upper back near the trapezius region. Reports no falls, injuries or trauma, reports that the pain occurred after sleeping on it uncomfortably. No cp, sob. . Historical: - Allergies: 07:51 No Known Allergies; hb - Home Meds: 07:51 Metformin Oral [Active]; atorvastatin oral [Active]; unknown HTN med [Active]; hb - PMHx: 07:51 DM2; HTN; hb - PSHx: 07:51 None; hb - Immunization history:: Adult Immunizations up to date. - Infectious Disease History:: Denies. - Social history:: Smoking status: Patient denies any tobacco usage or history of. ROS: 07:46 Constitutional: as per hpi ec2 Exam: 07:46 Constitutional: GEN: NAD Head: atraumatic Eyes: EOMI Ears: External ears are ec2 normal. CV: regular rate LUNGS: no respiratory distress ABD: non-distended SKIN: no evidence of rashes MSK: no evidence of trauma, L trapezius ttp w/o deformity or crepitus. Vital Signs: 07:40 BP 146 / 100; Pulse 74; Resp 16; Temp 98; Pulse Ox 100% ; Weight 77.11 kg; Height 5 ft. hb 9 in. ; Pain 9/10; 08:00 BP 135 / 91; Pulse 77; Resp 17; Pulse Ox 99% on R/A; rs5 07:40 Body Mass Index 25.10 (77.11 kg, 175.26 cm) hb 07:40 Pain Scale: Adult hb MDM: 07:38 Medical Screening Exam initiated ec2 07:46 Data reviewed: vital signs, nurses notes. ED course: Patient arrives today d/t concern ec2 for L upper back pain. exam yields msk findings as above. suspect msk sprain/strain, specifically over trapezius region. Will treat for msk pain. doubt bony fracture given well appearance or lack of focal c/t/l spine ttp or deformity or associated mechanism. accordingly will forgo imaging such as xr or ct imaging of the c/t spine. additionally doubt cardiac process given descriptiors and reproducibility of the pain. . Administered Medications: 07:57 Drug: Lidoderm Topical Patch 5 % (700 mg/patch) 1 patches Topical once; leave on for 12 rs5 hours; cover most painful area; may cut into smaller pieces {Note: applied to left upper back.} Route: Topical; Site: affected area; 08:21 Follow up: Response: No adverse reaction; Pain is decreased rs5 07:57 Drug: Acetaminophen PO 1000 mg PO once Route: PO; rs5 08:21 Follow up: Response: No adverse reaction; Pain is decreased rs5 07:58 Drug: Ketorolac IM 30 mg IM once Route: IM; Site: left deltoid; rs5 08:21 Follow up: Response: No adverse reaction; Pain is decreased rs5 07:58 Drug: Methocarbamol PO 750 mg PO once Route: PO; rs5 08:21 Follow up: Response: No adverse reaction; Pain is decreased rs5 Disposition Summary: 11/23/24 08:14 Discharge Ordered Notes: Location: Home ec2 Condition: Stable ec2 Diagnosis - Trapezius Muscle Spasm ec2 Followup: ec2 - With: Private Physician - When: - Reason: Re-evaluation by your physician Discharge Instructions: - Discharge Summary Sheet ec2 - Muscle Strain, [id number] ec2 Forms: - Medication Reconciliation Form ec2 - Antibiotic Education ec2 - Prescription Opioid Use ec2 - Patient Portal Instructions ec2 - Leadership Thank You Letter ec2 Prescriptions: - Cyclobenzaprine 5 mg Oral Tablet - take 1 tablet ORAL route 3 times per day As needed; 15 tablet; Refills: 0, ec2 Product Selection Permitted Signatures: Flora Holley RN RN Lior Vo RN RN rs5 Gaston Chan MD MD ec2
[2024-11-23 08:31] VITALS: BP 135/91; O2SAT 99
[2024-11-23 08:32] VITALS: TEMP 98
== END 2024-11-23 08:22 | disposition home or self-care (01) ==
LOC: ER 07:25
DX: M62.838 Other muscle spasm (principal)
CPT/HCPCS: 96372; 99284; J2003

== ENCOUNTER 2024-11-24 19:17 | Emergency (ER) | payer OTHER ==
--- OUTSIDE RECORDS SUMMARY | 2024-11-24 19:24 | XMS REPORT | Continuity of Care Document ---
Author Name Unknown Address [address] [place] [address] [facility] Address [address] [place] [address] Care Team Providers Care Special Equipment Technician Name Role Phone Javad CORBETT, Karol Primary Care Physician David Fraser Attending Clinician Unavailable Lenny Noonan Attending Clinician Unavailable Physician, No Primary or Family Admitting Clinic raquel Unavailable Payers Payer Name Policy Type Policy Number Effective Date Expirati on Date Source Problems Condition Name Condition Details Condition Category Status Onset Date Resolution Date Last Treatment Date Treating Clinician Comments Source [id number] Testicular hypofuncti on Problem [facility] [id number] Posthitis Problem Commo n [facility] [id number] Phimosis of penis Problem [facility] [id number] ED (erectile dysfunctio n) of organic origin Problem [facility] [id number] Acquired phimosis of penis Problem [facility] Allergies, Adverse Reactions, Alerts Allergy Name Allergy Type Status Severity Reaction(s) Onset Date Inactive Date Treating Clinician Comments Source No Known Allergie s DA Active U 08-03 00:00: 00 [facility] No Known Allergie s DA Active U 08-03 00:00: 00 [facility] Social History Social Habit Start Date Stop Date Quantity Comments Source History of Tobacco Use [facility] Sex Assigned At [facility] Smoking Status Start Date Stop Date Source Never Smoker [facility] Medications Ordered Medication Name Filled Medication Name Start Date Stop Date Current Medication? Ordering Clinician Indication Dosage Frequency Signature (SIG) Comments Components Source metformin 1,000 mg tablet 2023-11 00:00: 00 Yes mg Yuri Klein Januvia 100 mg tablet 2023-11 00:00: 00 Yes 1mg Yuri Klein Jardiance 25 mg tablet 2023-11 00:00: 00 Yes 1mg Yuri Klein rosuvastati n 20 mg tablet 2023-11 00:00: 00 Yes 1mg Yuri Klein triamcinolo ne acetonide 0.1 % topical cream [...] 2023-11 00:00: 00 Yes 1mg Yuri Klein glipizide 10 mg tablet 2023-11 0 00:00: 00 Yes 1mg Yuri Klein metformin 1,000 mg tablet 2023-11 0 00:00: 00 Yes 1mg Yuri Klein rosuvastati n 20 mg tablet 2023-11 0 00:00: 00 Yes 1mg Yuri Klein Januvia 100 mg tablet 08-02 00:00: 00 Yes 1mg Yuri Klein glipizide 10 mg tablet 08-02 00:00: 00 Yes 1mg Yuri Klein metformin 1,000 mg tablet 08-02 00:00: 00 Yes 1mg Yuri Klein prednisone 10 mg tablet 05-01 00:00: 00 Yes 1mg Yuri Klein amoxicillin 875 mg-jonnathanmarilumauricio janice clavulanate 125 mg tablet 05-01 00:00: 00 [...] COVID-19 Vaccine Moderna COVID-19 Vaccine 2022-06-22 00:00:00 Dong Klein Moderna COVID-19 Vaccine Moderna COVID-19 Vaccine 2021-03-17 00:00:00 Dong Klein Moderna COVID-19 Vaccine Moderna COVID-19 Vaccine 2021-02-11 00:00:00 Completed Yuri F Ernie Vital Signs Vital Name Observation Time Observation Value Comments S kole height 2023-12-07 16:45:00 69 [in_i] Commo n [facility] weight 2023-12-07 16:45:00 189.0 [lb_av] Co mmon [facility] temperature 2023-12-07 16:45:00 98.3 [degF] Com mon [facility] bmi 2023-12-07 16:45:00 27.91 kg/m2 Comm on [facility] oximetry 2023-12-07 16:45:00 98 % Commo n [facility] respiratory rate 2023-12-07 16:45:00 18 /min Common [facility] blood pressure systolic 2023-12-07 16:45:00 127 mm[Hg] [facility] blood pressure diastolic 2023-12-07 16:45:00 86 mm[Hg] Common [facility] BP Systolic 2024-11-23 10:03:00 124 mm[Hg] Step hen F Ernie BP Diastolic 2024-11-23 10:03:00 85 mm[Hg] [place] phen F Ernie Weight Measured 2024-11-23 10:03:00 187.00 pounds Yuri F Ernie Height Measured 2024-11-23 10:03:00 69.00 inches Yuri F Ernie Body Temperature 2024-11-23 10:03:00 Yuri F Ernie Heart Rate 2024-11-23 10:03:00 80.00 /min Maria Fernanda en F Ernie Respiratory Rate 2024-11-23 10:03:00 18.00 /min Yuri F Ernie BP Systolic 2024-10-26 10:57:00 125 mm[Hg] Step [...] 09:19:00 76.00 /min Maria Fernanda en F Ernie Respiratory Rate 2024-10-17 09:19:00 18.00 /min Yuri [...] Body Temperature 2018-08-02 13:11:00 98.30 degrees Yuri F Ernie Heart Rate 2018-08-02 13:11:00 74.00 /min Maria Fernanda en F Ernie Respiratory Rate 2018-08-02 13:11:00 16.00 /min Yuri Klein Procedures Procedure Date / Time Performed Performing Clinicia n Source 82023 Ecg Routine Ecg W/least 12 Lds W/i r 2018-08-02 00:00:00 Yuri Beverly Ernie Ecg Routine Ecg W/least 12 Lds W/i r 2015-05-07 00:00:00 Yuri Klein Ecg Routine Ecg W/least 12 Lds W/i r 2015-04-29 00:00:00 Yuri Klein Encounters Start Date/Time End Date/Time Encounter Type Admission Type Attending [facility] Care Department Encounter ID Source 2023-12-07 16:31:00 Outpatient David Fraser [facility] [id number] [facility] 2022-07-30 08:36:02 Outpatient David Fraser [facility] [id number] [facility] 2024-11-23 09:57:34 2024-11-23 09:57:34 Outpatient SFA [facility] 1227 Yuri Klein 2024-11-23 00:00:00 2024-11-23 00:00:00 Outpatient Visit SFA [id number] Yuri Klein 2024-10-26 10:46:24 2024-10-26 10:46:24 Outpatient SFA [facility] [id number] Yuri Klein 2024-10-26 00:00:00 2024-10-26 00:00:00 Outpatient Visit SFA [id number] Yuri Klein 2024-10-17 09:06:34 2024-10-17 09:06:34 Outpatient SFA [facility] [id number] Yuri Klein 2024-10-17 00:00:00 2024-10-17 00:00:00 Outpatient Visit SFA [id number] Yuri Klein 2024-09-28 17:01:21 2024-09-28 17:01:21 Outpatient SFA [facility] 1101 Yuri Klein 2024-09-28 00:00:00 2024-09-28 00:00:00 Outpatient Visit SFA [id number] Yuri Klein 2024-08-31 17:34:52 2024-08-31 17:34:52 Outpatient SFA SFA 1004 Yuri Klein 2024-08-31 00:00:00 2024-08-31 00:00:00 Outpatient Visit SFA [id number] Yuri Klein 2024-08-02 17:22:46 2024-08-02 17:22:46 Outpatient S[facility] [id number] Yuri Klein 2024-05-01 09:06:38 2024-05-01 09:06:38 Outpatient SFA [facility] [id number] Yuri Klein 2024-05-01 00:00:00 2024-05-01 00:00:00 Outpatient Visit SFA [id number] Yuri Klein 2023-12-07 00:00:00 2023-12-07 00:00:00 OFFICE VISIT ESTAB PT LEVEL 4 STLMLC STLMLC [id number] [facility] 2023-11-18 14:05:30 2023-11-18 14:05:30 Outpatient [facility] 1222 Yuri Klein 2023-10-28 16:34:57 2023-10-28 16:34:57 Outpatient [facility] [id number] Yuri Klein 2023-10-24 11:50:29 2023-10-24 11:50:29 Outpatient [facility] [id number] Yuri Klein 2023-10-17 14:09:26 2023-10-17 14:09:26 Outpatient [facility] [id number] Yuri Klein 2022-04-14 11:49:00 2022-04-14 16:15:00 Emergency EM Lenny Noonan [facility] [id number] [facility] 2022-04-14 11:49:00 2022-04-14 16:15:00 Emergency EM Lenny Noonan [facility] [id number] [facility] Results Test Description Test Time Test Comments Results Result Co mments Source [facility] [id number] 00:00:00* Test Item Value Reference Range Interpretation [...] ABS NUCLEATED RBCS (test cod e = 22091) 0.00 K/UL Yuri Beverly AustinHIV 1/2 4TH GEN, RFLX [id number] 00:00:00* Test Item Value Reference Range Interpretation Comme nts HIV 1/2 4TH GEN, RFLX CONF ( test code = 3514) NON-REACTIVE Yuri KleinRPR REFLEX TO T. PALLIDUM - [id number] 00:00:00* Test Item Value Reference Range Interpretation Comme nts RPR (test code = 52941) NON-REACTIVE RPR TITER (test code = 3500) NOT INDIC. TITER Yuri KleinVITAMIN [id number] 00:00:00* Test Item Value Reference Range Interpretation Comme nts VITAMIN B-12 (test code = 2840) 735 PG/ML Yuri KleinTSH REFLEX TO FREE [id number] 00:00:00* Test Item Value Reference Range Interpretation Comme nts TSH REFLEX TO FREE T4 (test code = 2834) 2.390 UIU/ML Yuri KleinCBC W/AUTO [id number] 00:00:00* Test Item Value Reference Range Interpretation [...] ABS NUCLEATED RBCS (test cod e = 54984) 0.00 K/UL Yuri KleinHIV 1/2 4TH GEN, RFLX [id number] 00:00:00* Test Item Value Reference Range Interpretation Comme nts HIV 1/2 4TH GEN, RFLX CONF ( test code = 3514) NON-REACTIVE Yuri KleinRPR REFLEX TO T. PALLIDUM - [id number] 00:00:00* Test Item Value Reference Range Interpretation Comme nts RPR (test code = 62983) NON-REACTIVE RPR TITER (test code = 3500) NOT INDIC. TITER Yuri KleinVITAMIN [id number] 00:00:00* Test Item Value Reference Range Interpretation Comme nts VITAMIN B-12 (test code = 2840) 735 PG/ML Yuri KleinHEMOGLOBIN [id number] 00:00:00* Test Item Value Reference Range Interpretation Comme nts HEMOGLOBIN A1c (test code = 65803) 12.4 % Yuri Beverly AustinHEMOGLOBIN [id number] 00:00:00* Test Item Value Reference Range Interpretation Comme nts HEMOGLOBIN A1c (test code = 46157) 12.4 % Yuri Beverly AustinHEMOGLOBIN [id number] 00:00:00* Test Item Value Reference Range Interpretation Comme nts HEMOGLOBIN A1c (test code = 06117) 12.4 % Yuri KleinCOMPREHENSIVE METABOLIC [id number] 00:00:00* Test Item Value Reference Range Interpretation Comme nts GLUCOSE (test code = 2217) 424 MG/DL BUN (test code = 2208) 15 MG/DL CREATININE (test code = 2214) 1.12 MG/DL eGFR (2020 CKD-EPI) (test co de = 04465) 81 ML/MIN/1.73 CALC BUN/CREAT (test code = [...] (test code = 2219) 15 U/L Yuri Beverly AustinLIPID [id number] 00:00:00* Test Item Value Reference Range Interpretation Comme nts CHOLESTEROL (test code = 2210) 352 MG/DL TRIGLYCERIDES (test code = 2232) 328 MG/DL HDL CHOLESTEROL (test code = 2220) 48 MG/DL CALC LDL CHOL (test code = 2237) 248 MG/DL RISK RATIO LDL/HDL (test cod e = 2238) 5.17 RATIO Yuri Beverly AustinALBUMIN/CREATININE RATIO, RANDOM [id number] 00:00:00* Test Item Value Reference Range Interpretation Comme nts CREATININE, URINE, CONC. (te st code = 207) 76.9 MG/DL ALBUMIN, URINE, RANDOM (test code = 40289) 0.2 MG/DL CALC ALBUMIN/CREAT, RND (bev t code = 01919) 3 MG/G Yuri KleinCOMPREHENSIVE METABOLIC [id number] 00:00:00* Test Item Value Reference Range Interpretation Comme nts GLUCOSE (test code = 2217) 424 MG/DL BUN (test code = 2208) 15 MG/DL CREATININE (test code = 2214) 1.12 MG/DL eGFR (2020 CKD-EPI) (test co de = 37519) 81 ML/MIN/1.73 CALC BUN/CREAT (test code = [...] code = 2219) 15 U/L Yuri KleinLIPID [id number] 00:00:00* Test Item Value Reference Range Interpretation Comme nts CHOLESTEROL (test code = 2210) 352 MG/DL TRIGLYCERIDES (test code = 2232) 328 MG/DL HDL CHOLESTEROL (test code = 2220) 48 MG/DL CALC LDL CHOL (test code = 2237) 248 MG/DL RISK RATIO LDL/HDL (test cod e = 2238) 5.17 RATIO Yuri Beverly AustinALBUMIN/CREATININE RATIO, RANDOM [id number] 00:00:00* Test Item Value Reference Range Interpretation Comme nts CREATININE, URINE, CONC. (te st code = 2071) 76.9 MG/DL ALBUMIN, URINE, RANDOM (test code = 64488) 0.2 MG/DL CALC ALBUMIN/CREAT, RND (bev t code = 94471) 3 MG/G Yuri KleinCOMPREHENSIVE METABOLIC [id number] 00:00:00* Test Item Value Reference Range Interpretation Comme nts GLUCOSE (test code = 2217) 424 MG/DL BUN (test code = 2208) 15 MG/DL CREATININE (test code = 2214) 1.12 MG/DL eGFR (2020 CKD-EPI) (test co de = 78225) 81 ML/MIN/1.73 CALC BUN/CREAT (test code = [...] code = 2219) 15 U/L Yuri KleinLIPID [id number] 00:00:00* Test Item Value Reference Range Interpretation Comme nts CHOLESTEROL (test code = 2210) 352 MG/DL TRIGLYCERIDES (test code = 2232) 328 MG/DL HDL CHOLESTEROL (test code = 2220) 48 MG/DL CALC LDL CHOL (test code = 2237) 248 MG/DL RISK RATIO LDL/HDL (test cod e = 2238) 5.17 RATIO Yuri KleinALBUMIN/CREATININE RATIO, RANDOM [id number] 00:00:00* Test Item Value Reference Range Interpretation Comme nts CREATININE, URINE, CONC. (te st code = 2071) 76.9 MG/DL ALBUMIN, URINE, RANDOM (test code = 10488) 0.2 MG/DL CALC ALBUMIN/CREAT, RND (bev t code = 85821) 3 MG/G Yuri KleinHEMOGLOBIN [id number] 07:05:36* Test Item Value Reference Range Interpretation Comme nts HEMOGLOBIN A1c (test code = 02225) 12.0 % 4.2-5.6 H [employer] GUIDELINES FOR HGB A1C: [...] INDICATED, ALL TESTING PERFORMED AT [facility] [address] [place] [address] [facility]: NADIA CONDE M.D. IA NUMBER [id number] [facility] [place]. [id number] COMPREHENSIVE METABOLIC [id number] 04:46:54* Test Item Value Reference Range Interpretation Comme nts GLUCOSE (test code = 2217) 371 MG/DL 70-99 H BUN (test code = 2207) 16 MG/DL 6-20 CREATININE (test code = 2214) 0.74 MG/DL 0.80-1.40 L eGFR (2020 CKD-EPI) (test code = 75849) 112 ML/MIN/1.73 >60 CALC BUN/CREAT (test code = 223) 22 RATIO 6-28 SODIUM (test code = 2231) 136 MEQ/L 133-146 POTASSIUM (test code = 2228) 4.3 MEQ/L 3.5-5.4 CHLORIDE (test code = 2215) 96 MEQ/L 95-107 CARBON DIOXIDE (test code = 2206) 25 MEQ/L 19-31 CALCIUM (test code = 2209) 9.6 MG/DL 8.5-10.5 PROTEIN, TOTAL (test code = 222) 6.9 G/DL 6.1-8.3 ALBUMIN (test code = 2200) 4.8 G/DL 3.5-5.2 CALC GLOBULIN (test code = 2240) 2.1 G/DL 1.9-3.7 CALC A/G RATIO (test code = 2234) 2.3 RATIO 1.0-2.6 BILIRUBIN, TOTAL (test code = 2207) 0.5 MG/DL <=1.2 ALKALINE PHOSPHATASE (test code = 2204) 89 U/L 40-118 AST (test code = 2218) 13 U/L 9-50 ALT (test code = 2219) 20 U/L 5-50 CBC W/AUTO DIFF WITH [id number] 03:00:48* Test Item Value Reference Range Interpretation [...] = 1065) 0.0 /100 WBC'S See_Comment [Automated messa ge] The system which generated this result transmitted [...] 0.00-0.10 ABS NUCLEATED RBCS (test code = 99472) 0.00 K/UL 0.00-0.11 HEMOGLOBIN [id number] 00:00:00* Test Item Value Reference Range Interpretation Comme nts HEMOGLOBIN A1c (test code = 34577) 12.0 % Yuri KleinCBC W/AUTO [id number] 00:00:00* Test Item Value Reference Range Interpretation [...] ABS NUCLEATED RBCS (test cod e = 43039) 0.00 K/UL Yuri Beverly ErnieCOMPREHENSIVE METABOLIC [id number] 00:00:00* Test Item Value Reference Range Interpretation Comme nts GLUCOSE (test code = 7) 371 MG/DL BUN (test code = 8) 16 MG/DL CREATININE (test code = 2214) 0.74 MG/DL eGFR (2020 CKD-EPI) (test code = ) 112 ML/MIN/1.73 CALC BUN/CREAT (test code = 2235) 22 RATIO SODIUM (test code = 223) 136 MEQ/L POTASSIUM (test code = 2228) 4.3 MEQ/L CHLORIDE (test code = 2215) 96 MEQ/L CARBON DIOXIDE (test code = 2206) 25 MEQ/L CALCIUM (test code = 2209) 9.6 MG/DL PROTEIN, TOTAL (test code = 222) 6.9 G/DL ALBUMIN (test code = 220) 4.8 G/DL CALC GLOBULIN (test code = 2240) 2.1 G/DL CALC A/G RATIO (test code = 2234) 2.3 RATIO BILIRUBIN, TOTAL (test code = 2206) 0.5 MG/DL ALKALINE PHOSPHATASE (test code = 4) 89 U/L AST (test code = 2218) 13 U/L ALT (test code = 2219) 20 U/L Yuri KleinHEMOGLOBIN [id number] 00:00:00* Test Item Value Reference Range Interpretation Comme [facility] HEMOGLOBIN A1c (test code = 43520) 12.0 % Yuri KleinCBC W/AUTO [id number] 00:00:00* Test Item Value Reference Range Interpretation Comme [facility] WBC (test code = 1001) 6.9 K/UL [...] ABS NUCLEATED RBCS (test cod e = 98529) 0.00 K/UL Yuri KleinCOMPREHENSIVE METABOLIC [id number] 00:00:00* Test Item Value Reference Range Interpretation Comme nts GLUCOSE (test code = 2217) 371 MG/DL BUN (test code = 2208) 16 MG/DL CREATININE (test code = 2214) 0.74 MG/DL eGFR (2020 CKD-EPI) (test code = 01165) 112 ML/MIN/1.73 CALC BUN/CREAT (test code = [...] code = 2219) 20 U/L Yuri KleinHEMOGLOBIN [id number] 00:00:00* Test Item Value Reference Range Interpretation Comme nts HEMOGLOBIN A1c (test code = 46053) 12.0 % Yuri KleinCBC W/AUTO [id number] 00:00:00* Test Item Value Reference Range Interpretation [...] ABS NUCLEATED RBCS (test cod e = 87861) 0.00 K/UL Yuri F ErnieCOMPREHENSIVE METABOLIC [id number] 00:00:00* Test Item Value Reference Range Interpretation Comme nts GLUCOSE (test code = 2217) 371 MG/DL BUN (test code = 2208) 16 MG/DL CREATININE (test code = 2214) 0.74 MG/DL eGFR (2020 CKD-EPI) (test code = 99457) 112 ML/MIN/1.73 CALC BUN/CREAT (test code = [...] code = 2219) 20 U/L Yuri KleinHEMOGLOBIN [id number] 00:00:00* Test Item Value Reference Range Interpretation Comme nts HEMOGLOBIN A1c (test code = 92623) 12.0 % Yuri KleinCBC W/AUTO [id number] 00:00:00* Test Item Value Reference Range Interpretation [...] ABS NUCLEATED RBCS (test cod e = 19270) 0.00 K/UL Yuri KleinCOMPREHENSIVE METABOLIC [id number] 00:00:00* Test Item Value Reference Range Interpretation Comme nts GLUCOSE (test code = 2217) 371 MG/DL BUN (test code = 2208) 16 MG/DL CREATININE (test code = 2214) 0.74 MG/DL eGFR (2020 CKD-EPI) (test code = 26674) 112 ML/MIN/1.73 CALC BUN/CREAT (test code = [...] code = 2219) 20 U/L Yuri KleinHEMOGLOBIN [id number] 00:00:00* Test Item Value Reference Range Interpretation Comme mitul HEMOGLOBIN A1c (test code = 51029) 12.0 % Yuri KleinCBC W/AUTO [id number] 00:00:00* Test Item Value Reference Range Interpretation [...] ABS NUCLEATED RBCS (test cod e = 97525) 0.00 K/UL Yuri KleinCOMPREHENSIVE METABOLIC [id number] 00:00:00* Test Item Value Reference Range Interpretation Comme nts GLUCOSE (test code = 2217) 371 MG/DL BUN (test code = 2208) 16 MG/DL CREATININE (test code = 2214) 0.74 MG/DL eGFR (2020 CKD-EPI) (test code = 83659) 112 ML/MIN/1.73 CALC BUN/CREAT (test code = [...] code = 2219) 20 U/L Yuri KleinHEMOGLOBIN [id number] 00:00:00* Test Item Value Reference Range Interpretation Comme nts HEMOGLOBIN A1c (test code = 11642) 12.0 % Yuri KleinCBC W/AUTO [id number] 00:00:00* Test Item Value Reference Range Interpretation [...] ABS NUCLEATED RBCS (test cod e = 05081) 0.00 K/UL Yuri KleinCOMPREHENSIVE METABOLIC [id number] 00:00:00* Test Item Value Reference Range Interpretation Comme nts GLUCOSE (test code = 2217) 371 MG/DL BUN (test code = 2208) 16 MG/DL CREATININE (test code = 2214) 0.74 MG/DL eGFR (2020 CKD-EPI) (test code = 42408) 112 ML/MIN/1.73 CALC BUN/CREAT (test code = [...] code = 2219) 20 U/L Yuri Beverly [facility] METABOLIC [id number] 13:33:00* Test Item Value Reference Range Interpretation [...] code = CA) 8.6 mg/dL 8.5-10.1 N [id number] 13:33:00* Test Item Value Reference Range Interpretation Comme nts TROPONIN-HS (test code = TROPI) <4.0 pg/mL 0-45 N CAUTION: Units o f the current test methodology (pg/mL)differ from the prior test methodology (ng/mL) by a factorof 1000. CBC W/O [id number] 13:14:00* Test Item Value Reference Range Interpretation [...] fL 6.7-11.0 H - XR CHEST 1 [id number] 12:09:00 [facility])Name: GREYSON CASTELAN : 1975 Sex: M FAX: Lenny Noonan MD [phone] [place]: B St: PRE Name: GREYSON CASTELAN [facility] : 1975 Age/S: 46/M [address] [facility] Unit #: [id number] Loc: [place] [address] Phys: Mary Ellen Noonan MD Acct: [id number] Dis Date: Status: PRE ER PHONE #: [phone] Exam Date: 04/14/2022 1205 FAX #: [phone] Reason: CHEST PAIN EXAMS: CPT CODE: [id number] XR CHEST 1 V 66825 HISTORY: Chestpain. COMPARISON: August 03, 2018. Location: [facility]. No acute infiltrates, effusion or congestion is noted. The cardiac and mediastinal silhouette are within normal limits. IMPRESSION: No acute infiltrates, effusion or congestion. at 1209 Reported and signed by: Steve Cartagena M.D. CC: Lenny Noonan MD Technologist: Ean RICE(R) Trnscrd Date/Time/By: 04/14/2022 (9247) : By: [email or web address] Orig Print D/T: S: 04/14/2022 (4088) PAGE 1 Signed Report MICROALBUMIN, [id number] 00:00:00* Test Item Value Reference Range Interpretation Comme nts ALBUMIN, URINE, RANDOM (test code = 78150) TEST NOT PERFORMED MG/DL Yuri F AustinMICROALBUMIN, [id number] 00:00:00* Test Item Value Reference Range Interpretation Comme nts ALBUMIN, URINE, RANDOM (test code = 52506) TEST NOT PERFORMED MG/DL Yuri Beverly AustinMICROALBUMIN, [id number] 00:00:00* Test Item Value Reference Range Interpretation Comme nts ALBUMIN, URINE, RANDOM (test code = 96871) TEST NOT PERFORMED MG/DL Yuri F AustinMICROALBUMIN, [id number] 00:00:00* Test Item Value Reference Range Interpretation Comme mitul ALBUMIN, URINE, RANDOM (test code = 88605) TEST NOT PERFORMED MG/DL Yuri KleinMICROALBUMIN, [id number] 00:00:00* Test Item Value Reference Range Interpretation Comme nts ALBUMIN, URINE, RANDOM (test code = 70025) TEST NOT PERFORMED MG/DL Yuri Beverly AustinMICROALBUMIN, [id number] 00:00:00* Test Item Value Reference Range Interpretation Comme nts ALBUMIN, URINE, RANDOM (test code = 86041) TEST NOT PERFORMED MG/DL Yuri KleinCOMPREHENSIVE METABOLIC [id number] 00:00:00* Test Item Value Reference Range Interpretation Comme nts GLUCOSE (test code = 2217) 133 MG/DL BUN (test code = 2208) 15 MG/DL CREATININE (test code = 2214) 0.83 MG/DL eGFR AMER. (test cod e = 06983) 124 ML/MIN/1.73 eGFR NON- AMER. (test code = 23109) 107 ML/MIN/1.73 CALC BUN/CREAT (test code = [...] code = 2219) 42 U/L Yuri KleinLIPID [id number] 00:00:00* Test Item Value Reference Range Interpretation Comme nts CHOLESTEROL (test code = 2210) 278 MG/DL TRIGLYCERIDES (test code = 2232) 147 MG/DL HDL CHOLESTEROL (test code = 2220) 41 MG/DL CALC LDL CHOL (test code = 2237) 206 MG/DL RISK RATIO LDL/HDL (test cod e = 2238) 5.02 RATIO Yuri KleinCOMPREHENSIVE METABOLIC [id number] 00:00:00* Test Item Value Reference Range Interpretation Comme nts GLUCOSE (test code = 2217) 133 MG/DL BUN (test code = 2208) 15 MG/DL CREATININE (test code = 2214) 0.83 MG/DL eGFR AMER. (test cod e = 80899) 124 ML/MIN/1.73 eGFR NON- AMER. (test code = 59867) 107 ML/MIN/1.73 CALC BUN/CREAT (test code = [...] = 2219) 42 U/L Yuri Beverly AustinLIPID [id number] 00:00:00* Test Item Value Reference Range Interpretation Comme nts CHOLESTEROL (test code = 2210) 278 MG/DL TRIGLYCERIDES (test code = 2232) 147 MG/DL HDL CHOLESTEROL (test code = 2220) 41 MG/DL CALC LDL CHOL (test code = 2237) 206 MG/DL RISK RATIO LDL/HDL (test cod e = 2238) 5.02 RATIO Yuri Beverly AustinCOMPREHENSIVE METABOLIC [id number] 00:00:00* Test Item Value Reference Range Interpretation Comme nts GLUCOSE (test code = 2217) 133 MG/DL BUN (test code = 2208) 15 MG/DL CREATININE (test code = 2214) 0.83 MG/DL eGFR AMER. (test cod e = 67266) 124 ML/MIN/1.73 eGFR NON- AMER. (test code = 40391) 107 ML/MIN/1.73 CALC BUN/CREAT (test code = [...] (test code = 2219) 42 U/L Yuri Siria PremontLIPID [id number] 00:00:00* Test Item Value Reference Range Interpretation Comme nts CHOLESTEROL (test code = 2210) 278 MG/DL TRIGLYCERIDES (test code = 2232) 147 MG/DL HDL CHOLESTEROL (test code = 2220) 41 MG/DL CALC LDL CHOL (test code = 2237) 206 MG/DL RISK RATIO LDL/HDL (test cod e = 2238) 5.02 RATIO Yuri Beverly PremontCOMPREHENSIVE METABOLIC [id number] 00:00:00* Test Item Value Reference Range Interpretation Comme nts GLUCOSE (test code = 2217) 133 MG/DL BUN (test code = 2208) 15 MG/DL CREATININE (test code = 2214) 0.83 MG/DL eGFR AMER. (test cod e = 36256) 124 ML/MIN/1.73 eGFR NON- AMER. (test code = 07223) 107 ML/MIN/1.73 CALC BUN/CREAT (test code = [...] code = 2219) 42 U/L Yuri KleinLIPID [id number] 00:00:00* Test Item Value Reference Range Interpretation Comme nts CHOLESTEROL (test code = 2210) 278 MG/DL TRIGLYCERIDES (test code = 2232) 147 MG/DL HDL CHOLESTEROL (test code = 2220) 41 MG/DL CALC LDL CHOL (test code = 2237) 206 MG/DL RISK RATIO LDL/HDL (test cod e = 2238) 5.02 RATIO Yuri KleinCOMPREHENSIVE METABOLIC [id number] 00:00:00* Test Item Value Reference Range Interpretation Comme nts GLUCOSE (test code = 2217) 133 MG/DL BUN (test code = 2208) 15 MG/DL CREATININE (test code = 2214) 0.83 MG/DL eGFR AMER. (test cod e = 54067) 124 ML/MIN/1.73 eGFR NON- AMER. (test code = 98944) 107 ML/MIN/1.73 CALC BUN/CREAT (test code = [...] code = 2219) 42 U/L Yuri KleinLIPID [id number] 00:00:00* Test Item Value Reference Range Interpretation Comme nts CHOLESTEROL (test code = 2210) 278 MG/DL TRIGLYCERIDES (test code = 2232) 147 MG/DL HDL CHOLESTEROL (test code = 2220) 41 MG/DL CALC LDL CHOL (test code = 2237) 206 MG/DL RISK RATIO LDL/HDL (test cod e = 2238) 5.02 RATIO Yuri KleinCOMPREHENSIVE METABOLIC [id number] 00:00:00* Test Item Value Reference Range Interpretation Comme nts GLUCOSE (test code = 2217) 133 MG/DL BUN (test code = 2208) 15 MG/DL CREATININE (test code = 2214) 0.83 MG/DL eGFR AMER. (test cod e = 56281) 124 ML/MIN/1.73 eGFR NON- AMER. (test code = 89598) 107 ML/MIN/1.73 CALC BUN/CREAT (test code = [...] = 2219) 42 U/L Yuri Beverly AustinLIPID [id number] 00:00:00* Test Item Value Reference Range Interpretation Comme nts CHOLESTEROL (test code = 2210) 278 MG/DL TRIGLYCERIDES (test code = 2232) 147 MG/DL HDL CHOLESTEROL (test code = 2220) 41 MG/DL CALC LDL CHOL (test code = 2237) 206 MG/DL RISK RATIO LDL/HDL (test cod e = 2238) 5.02 RATIO Yuri Beverly AustinHEMOGLOBIN [id number] 00:00:00* Test Item Value Reference Range Interpretation Comme nts HEMOGLOBIN A1c (test code = 01536) 6.4 % Yuri Beverly AustinHEMOGLOBIN [id number] 00:00:00* Test Item Value Reference Range Interpretation Comme nts HEMOGLOBIN A1c (test code = 38808) 6.4 % Yuri Beverly AustinHEMOGLOBIN [id number] 00:00:00* Test Item Value Reference Range Interpretation Comme nts HEMOGLOBIN A1c (test code = 56886) 6.4 % Yuri Beverly AustinHEMOGLOBIN [id number] 00:00:00* Test Item Value Reference Range Interpretation Comme nts HEMOGLOBIN A1c (test code = 01586) 6.4 % Yuri Beverly AustinHEMOGLOBIN [id number] 00:00:00* Test Item Value Reference Range Interpretation Comme nts HEMOGLOBIN A1c (test code = 12478) 6.4 % Yuri Beverly AustinHEMOGLOBIN [id number] 00:00:00* Test Item Value Reference Range Interpretation Comme nts HEMOGLOBIN A1c (test code = 72982) 6.4 % Yuri Beverly AustinHEMOGLOBIN [id number] 00:00:00* Test Item Value Reference Range Interpretation Comme nts HEMOGLOBIN A1c (test code = 77234) 7.0 % Yuri Beverly AustinHEMOGLOBIN [id number] 00:00:00* Test Item Value Reference Range Interpretation Comme nts HEMOGLOBIN A1c (test code = 28164) 7.0 % Yuri Beverly AustinHEMOGLOBIN [id number] 00:00:00* Test Item Value Reference Range Interpretation Comme nts HEMOGLOBIN A1c (test code = 20660) 7.0 % Yuri Beverly AustinHEMOGLOBIN [id number] 00:00:00* Test Item Value Reference Range Interpretation Comme nts HEMOGLOBIN A1c (test code = 06911) 7.0 % Yuri Beverly AustinHEMOGLOBIN [id number] 00:00:00* Test Item Value Reference Range Interpretation Comme nts HEMOGLOBIN A1c (test code = 03109) 7.0 % Yuri KleinHEMOGLOBIN [id number] 00:00:00* Test Item Value Reference Range Interpretation Comme mitul HEMOGLOBIN A1c (test code = 99889) 7.0 % Yuri KleinCOMPREHENSIVE METABOLIC [id number] 00:00:00* Test Item Value Reference Range Interpretation Comme nts GLUCOSE (test code = 2217) 145 MG/DL BUN (test code = 2208) 11 MG/DL CREATININE (test code = 2214) 0.79 MG/DL eGFR AMER. (test cod e = 47954) 128 ML/MIN/1.73 eGFR NON- AMER. (test code = 42393) 111 ML/MIN/1.73 CALC BUN/CREAT (test code = [...] code = 2219) 83 U/L Yuri Beverly AustinLIPID [id number] 00:00:00* Test Item Value Reference Range Interpretation Comme nts CHOLESTEROL (test code = 2210) 267 MG/DL TRIGLYCERIDES (test code = 2232) 254 MG/DL HDL CHOLESTEROL (test code = 2220) 40 MG/DL CALC LDL CHOL (test code = 2237) 176 MG/DL RISK RATIO LDL/HDL (test cod e = 2238) 4.41 RATIO Yuri KleinHEMOGLOBIN [id number] 00:00:00* Test Item Value Reference Range Interpretation Comme mitul HEMOGLOBIN A1c (test code = 94825) 6.5 % Yuri Beverly PremontCBC W/AUTO [id number] 00:00:00* Test Item Value Reference Range Interpretation [...] = 1015) 171 K/UL Yuri KleinCOMPREHENSIVE METABOLIC [id number] 00:00:00* Test Item Value Reference Range Interpretation Comme nts GLUCOSE (test code = 2217) 145 MG/DL BUN (test code = 2208) 11 MG/DL CREATININE (test code = 2214) 0.79 MG/DL eGFR AMER. (test cod e = 13521) 128 ML/MIN/1.73 eGFR NON- AMER. (test code = 99648) 111 ML/MIN/1.73 CALC BUN/CREAT (test code = [...] code = 2219) 83 U/L Yuri KleinLIPID [id number] 00:00:00* Test Item Value Reference Range Interpretation Comme nts CHOLESTEROL (test code = 2210) 267 MG/DL TRIGLYCERIDES (test code = 2232) 254 MG/DL HDL CHOLESTEROL (test code = 2220) 40 MG/DL CALC LDL CHOL (test code = 2237) 176 MG/DL RISK RATIO LDL/HDL (test cod e = 2238) 4.41 RATIO Yuri KleinHEMOGLOBIN [id number] 00:00:00* Test Item Value Reference Range Interpretation Comme nts HEMOGLOBIN A1c (test code = 46505) 6.5 % Yuri KleinCBC W/AUTO [id number] 00:00:00* Test Item Value Reference Range Interpretation [...] = 1015) 171 K/UL Yuri KleinCOMPREHENSIVE METABOLIC [id number] 00:00:00* Test Item Value Reference Range Interpretation Comme nts GLUCOSE (test code = 2217) 145 MG/DL BUN (test code = 2208) 11 MG/DL CREATININE (test code = 2214) 0.79 MG/DL eGFR AMER. (test cod e = 88305) 128 ML/MIN/1.73 eGFR NON- AMER. (test code = 11505) 111 ML/MIN/1.73 CALC BUN/CREAT (test code = [...] code = 2219) 83 U/L Yuri KleinLIPID [id number] 00:00:00* Test Item Value Reference Range Interpretation Comme nts CHOLESTEROL (test code = 2210) 267 MG/DL TRIGLYCERIDES (test code = 2232) 254 MG/DL HDL CHOLESTEROL (test code = 2220) 40 MG/DL CALC LDL CHOL (test code = 2237) 176 MG/DL RISK RATIO LDL/HDL (test cod e = 2238) 4.41 RATIO Yuri KleinHEMOGLOBIN [id number] 00:00:00* Test Item Value Reference Range Interpretation Comme nts HEMOGLOBIN A1c (test code = 64221) 6.5 % Yuri KleinCBC W/AUTO [id number] 00:00:00* Test Item Value Reference Range Interpretation [...] 1015) 171 K/UL Yuri Beverly ErnieCOMPREHENSIVE METABOLIC [id number] 00:00:00* Test Item Value Reference Range Interpretation Comme nts GLUCOSE (test code = 2217) 145 MG/DL BUN (test code = 2208) 11 MG/DL CREATININE (test code = 2214) 0.79 MG/DL eGFR AMER. (test cod e = 77537) 128 ML/MIN/1.73 eGFR NON- AMER. (test code = 79533) 111 ML/MIN/1.73 CALC BUN/CREAT (test code = [...] code = 2219) 83 U/L Yuri KleinLIPID [id number] 00:00:00* Test Item Value Reference Range Interpretation Comme nts CHOLESTEROL (test code = 2210) 267 MG/DL TRIGLYCERIDES (test code = 2232) 254 MG/DL HDL CHOLESTEROL (test code = 2220) 40 MG/DL CALC LDL CHOL (test code = 2237) 176 MG/DL RISK RATIO LDL/HDL (test cod e = 2238) 4.41 RATIO Yuri KleinHEMOGLOBIN [id number] 00:00:00* Test Item Value Reference Range Interpretation Comme nts HEMOGLOBIN A1c (test code = 95853) 6.5 % Yuri Beverly ErnieCBC W/AUTO [id number] 00:00:00* Test Item Value Reference Range Interpretation [...] = 1015) 171 K/UL Yuri KleinCOMPREHENSIVE METABOLIC [id number] 00:00:00* Test Item Value Reference Range Interpretation Comme nts GLUCOSE (test code = 2217) 145 MG/DL BUN (test code = 2208) 11 MG/DL CREATININE (test code = 2214) 0.79 MG/DL eGFR AMER. (test cod e = 55214) 128 ML/MIN/1.73 eGFR NON- AMER. (test code = 66334) 111 ML/MIN/1.73 CALC BUN/CREAT (test code = [...] code = 2219) 83 U/L Yuri Beverly AustinLIPID [id number] 00:00:00* Test Item Value Reference Range Interpretation Comme nts CHOLESTEROL (test code = 2210) 267 MG/DL TRIGLYCERIDES (test code = 2232) 254 MG/DL HDL CHOLESTEROL (test code = 2220) 40 MG/DL CALC LDL CHOL (test code = 2237) 176 MG/DL RISK RATIO LDL/HDL (test cod e = 2238) 4.41 RATIO Yuri KleinHEMOGLOBIN [id number] 00:00:00* Test Item Value Reference Range Interpretation Comme nts HEMOGLOBIN A1c (test code = 34921) 6.5 % Yuri KleinCBC W/AUTO [id number] 00:00:00* Test Item Value Reference Range Interpretation [...] = 1015) 171 K/UL Yuri KleinCOMPREHENSIVE METABOLIC [id number] 00:00:00* Test Item Value Reference Range Interpretation Comme nts GLUCOSE (test code = 2217) 145 MG/DL BUN (test code = 2208) 11 MG/DL CREATININE (test code = 2214) 0.79 MG/DL eGFR AMER. (test cod e = 86329) 128 ML/MIN/1.73 eGFR NON- AMER. (test code = 07994) 111 ML/MIN/1.73 CALC BUN/CREAT (test code = [...] = 2219) 83 U/L Yuri Beverly ErnieLIPID [id number] 00:00:00* Test Item Value Reference Range Interpretation Comme nts CHOLESTEROL (test code = 2210) 267 MG/DL TRIGLYCERIDES (test code = 2232) 254 MG/DL HDL CHOLESTEROL (test code = 2220) 40 MG/DL CALC LDL CHOL (test code = 2237) 176 MG/DL RISK RATIO LDL/HDL (test cod e = 2238) 4.41 RATIO Yuri Beverly ErnieHEMOGLOBIN [id number] 00:00:00* Test Item Value Reference Range Interpretation Comme nts HEMOGLOBIN A1c (test code = 78669) 6.5 % Yuri Beverly ErnieCBC W/AUTO [id number] 00:00:00* Test Item Value Reference Range Interpretation [...] (test code = 1015) 171 K/UL Yuri Siria Scarlett (ANTI-NUCLEAR AB) WITH REFLEX [id number] 00:00:00* Test Item Value Reference Range Interpretation Comme nts ANTI-NUCLEAR ANTIBODIES (bev t code = 3506) NEGATIVE Yuri Pantoja (ANTI-NUCLEAR AB) WITH REFLEX [id number] 00:00:00* Test Item Value Reference Range Interpretation Comme nts ANTI-NUCLEAR ANTIBODIES (bev t code = 3506) NEGATIVE Yuri Beverly AustinANA (ANTI-NUCLEAR AB) WITH REFLEX [id number] 00:00:00* Test Item Value Reference Range Interpretation Comme nts ANTI-NUCLEAR ANTIBODIES (bev t code = 3506) NEGATIVE Yuri F AustinANA (ANTI-NUCLEAR AB) WITH REFLEX [id number] 00:00:00* Test Item Value Reference Range Interpretation Comme nts ANTI-NUCLEAR ANTIBODIES (bev t code = 3506) NEGATIVE Yuri F AustinANA (ANTI-NUCLEAR AB) WITH REFLEX [id number] 00:00:00* Test Item Value Reference Range Interpretation Comme nts ANTI-NUCLEAR ANTIBODIES (bev t code = 3506) NEGATIVE Yuri Beverly AustinANA (ANTI-NUCLEAR AB) WITH REFLEX [id number] 00:00:00* Test Item Value Reference Range Interpretation Comme nts ANTI-NUCLEAR ANTIBODIES (bev t code = 3506) NEGATIVE Yuri [id number] 00:00:00* Test Item Value Reference Range Interpretation Comme nts TSH (test code = 2821) 2.39 UIU/ML Yuri KleinRHEUMATOID FACTOR, [id number] 00:00:00* Test Item Value Reference Range Interpretation Comme nts RHEUMATOID FACTOR, QUANT (te st code = 3502) <10 IU/ML Yuri [id number] 00:00:00* Test Item Value Reference Range Interpretation Comme nts TESTOSTERONE (test code = 2830) 394 NG/DL Yuri KleinPSA, [id number] 00:00:00* Test Item Value Reference Range Interpretation Comme nts PSA, TOTAL (test code = 2606) 0.54 NG/ML Yuri KleinCOMPREHENSIVE METABOLIC [id number] 00:00:00* Test Item Value Reference Range Interpretation Comme nts GLUCOSE (test code = 2217) 123 MG/DL BUN (test code = 2208) 15 MG/DL CREATININE (test code = 2214) 1.02 MG/DL eGFR AMER. (test cod e = 79199) 105 ML/MIN/1.73 eGFR NON- AMER. (test code = 90955) 91 ML/MIN/1.73 CALC BUN/CREAT (test code = [...] code = 2219) 41 U/L Yuri KleinLIPID [id number] 00:00:00* Test Item Value Reference Range Interpretation Comme nts CHOLESTEROL (test code = 2210) 265 MG/DL TRIGLYCERIDES (test code = 2232) 541 MG/DL HDL CHOLESTEROL (test code = 2220) 36 MG/DL CALC LDL CHOL (test code = 2237) NOTE MG/DL RISK RATIO LDL/HDL (test cod e = 2238) (NOTE) RATIO Yuri [id number] 00:00:00* Test Item Value Reference Range Interpretation Comme nts TSH (test code = 2821) 2.39 UIU/ML Yuri KleinRHEUMATOID FACTOR, [id number] 00:00:00* Test Item Value Reference Range Interpretation Comme nts RHEUMATOID FACTOR, QUANT (te st code = 3502) <10 IU/ML Yuri [id number] 00:00:00* Test Item Value Reference Range Interpretation Comme nts TESTOSTERONE (test code = 2830) 394 NG/DL Yuri KleinPSA, [id number] 00:00:00* Test Item Value Reference Range Interpretation Comme nts PSA, TOTAL (test code = 2606) 0.54 NG/ML Yuri KleinCOMPREHENSIVE METABOLIC [id number] 00:00:00* Test Item Value Reference Range Interpretation Comme nts GLUCOSE (test code = 2217) 123 MG/DL BUN (test code = 2208) 15 MG/DL CREATININE (test code = 2214) 1.02 MG/DL eGFR AMER. (test cod e = 58327) 105 ML/MIN/1.73 eGFR NON- AMER. (test code = 10744) 91 ML/MIN/1.73 CALC BUN/CREAT (test code = [...] code = 2219) 41 U/L Yuri KleinLIPID [id number] 00:00:00* Test Item Value Reference Range Interpretation Comme nts CHOLESTEROL (test code = 2210) 265 MG/DL TRIGLYCERIDES (test code = 2232) 541 MG/DL HDL CHOLESTEROL (test code = 2220) 36 MG/DL CALC LDL CHOL (test code = 2237) NOTE MG/DL RISK RATIO LDL/HDL (test cod e = 2238) (NOTE) RATIO Yuri Beverly [id number] 00:00:00* Test Item Value Reference Range Interpretation Comme nts TSH (test code = 2821) 2.39 UIU/ML Yuri KleinRHEUMATOID FACTOR, [id number] 00:00:00* Test Item Value Reference Range Interpretation Comme nts RHEUMATOID FACTOR, QUANT (te st code = 3502) <10 IU/ML Yuri Beverly [id number] 00:00:00* Test Item Value Reference Range Interpretation Comme nts TESTOSTERONE (test code = 2830) 394 NG/DL Yuri KleinPSA, [id number] 00:00:00* Test Item Value Reference Range Interpretation Comme nts PSA, TOTAL (test code = 2606) 0.54 NG/ML Yuri KleinCOMPREHENSIVE METABOLIC [id number] 00:00:00* Test Item Value Reference Range Interpretation Comme nts GLUCOSE (test code = 2217) 123 MG/DL BUN (test code = 2208) 15 MG/DL CREATININE (test code = 2214) 1.02 MG/DL eGFR AMER. (test cod e = 06926) 105 ML/MIN/1.73 eGFR NON- AMER. (test code = 49827) 91 ML/MIN/1.73 CALC BUN/CREAT (test code = [...] code = 2219) 41 U/L Yuri KleinLIPID [id number] 00:00:00* Test Item Value Reference Range Interpretation Comme nts CHOLESTEROL (test code = 2210) 265 MG/DL TRIGLYCERIDES (test code = 2232) 541 MG/DL HDL CHOLESTEROL (test code = 2220) 36 MG/DL CALC LDL CHOL (test code = 2237) NOTE MG/DL RISK RATIO LDL/HDL (test cod e = 2238) (NOTE) RATIO Yuri [id number] 00:00:00* Test Item Value Reference Range Interpretation Comme nts TSH (test code = 2821) 2.39 UIU/ML Yuri KleinRHEUMATOID FACTOR, [id number] 00:00:00* Test Item Value Reference Range Interpretation Comme nts RHEUMATOID FACTOR, QUANT (te st code = 3502) <10 IU/ML Yuri [id number] 00:00:00* Test Item Value Reference Range Interpretation Comme nts TESTOSTERONE (test code = 2830) 394 NG/DL Yuri KleinPSA, [id number] 00:00:00* Test Item Value Reference Range Interpretation Comme nts PSA, TOTAL (test code = 2606) 0.54 NG/ML Yuri KleinCOMPREHENSIVE METABOLIC [id number] 00:00:00* Test Item Value Reference Range Interpretation Comme nts GLUCOSE (test code = 2217) 123 MG/DL BUN (test code = 2208) 15 MG/DL CREATININE (test code = 2214) 1.02 MG/DL eGFR AMER. (test cod e = 02285) 105 ML/MIN/1.73 eGFR NON- AMER. (test code = 28910) 91 ML/MIN/1.73 CALC BUN/CREAT (test code = [...] code = 2219) 41 U/L Yuri KleinLIPID [id number] 00:00:00* Test Item Value Reference Range Interpretation Comme nts CHOLESTEROL (test code = 2210) 265 MG/DL TRIGLYCERIDES (test code = 2232) 541 MG/DL HDL CHOLESTEROL (test code = 2220) 36 MG/DL CALC LDL CHOL (test code = 2237) NOTE MG/DL RISK RATIO LDL/HDL (test cod e = 2238) (NOTE) RATIO Yuri [id number] 00:00:00* Test Item Value Reference Range Interpretation Comme nts TSH (test code = 2821) 2.39 UIU/ML Yuri KleinRHEUMATOID FACTOR, [id number] 00:00:00* Test Item Value Reference Range Interpretation Comme nts RHEUMATOID FACTOR, QUANT (te st code = 3502) <10 IU/ML Yuri [id number] 00:00:00* Test Item Value Reference Range Interpretation Comme nts TESTOSTERONE (test code = 2830) 394 NG/DL Yuri KleinPSA, [id number] 00:00:00* Test Item Value Reference Range Interpretation Comme nts PSA, TOTAL (test code = 2606) 0.54 NG/ML Yuri KleinCOMPREHENSIVE METABOLIC [id number] 00:00:00* Test Item Value Reference Range Interpretation Comme nts GLUCOSE (test code = 2217) 123 MG/DL BUN (test code = 2208) 15 MG/DL CREATININE (test code = 2214) 1.02 MG/DL eGFR AMER. (test cod e = 47358) 105 ML/MIN/1.73 eGFR NON- AMER. (test code = 10017) 91 ML/MIN/1.73 CALC BUN/CREAT (test code = [...] code = 2219) 41 U/L Yuri KleinLIPID [id number] 00:00:00* Test Item Value Reference Range Interpretation Comme nts CHOLESTEROL (test code = 2210) 265 MG/DL TRIGLYCERIDES (test code = 2232) 541 MG/DL HDL CHOLESTEROL (test code = 2220) 36 MG/DL CALC LDL CHOL (test code = 2237) NOTE MG/DL RISK RATIO LDL/HDL (test cod e = 2238) (NOTE) RATIO Yuri Beverly [id number] 00:00:00* Test Item Value Reference Range Interpretation Comme nts TSH (test code = 2821) 2.39 UIU/ML Yuri KleinRHEUMATOID FACTOR, [id number] 00:00:00* Test Item Value Reference Range Interpretation Comme nts RHEUMATOID FACTOR, QUANT (te st code = 3502) <10 IU/ML Yuri [id number] 00:00:00* Test Item Value Reference Range Interpretation Comme nts TESTOSTERONE (test code = 2830) 394 NG/DL Yuri KleinPSA, [id number] 00:00:00* Test Item Value Reference Range Interpretation Comme nts PSA, TOTAL (test code = 2606) 0.54 NG/ML Yuri KleinCOMPREHENSIVE METABOLIC [id number] 00:00:00* Test Item Value Reference Range Interpretation Comme nts GLUCOSE (test code = 2217) 123 MG/DL BUN (test code = 2208) 15 MG/DL CREATININE (test code = 2214) 1.02 MG/DL eGFR AMER. (test cod e = 03199) 105 ML/MIN/1.73 eGFR NON- AMER. (test code = 30219) 91 ML/MIN/1.73 CALC BUN/CREAT (test code = [...] code = 2219) 41 U/L Yuri KleinLIPID [id number] 00:00:00* Test Item Value Reference Range Interpretation Comme nts CHOLESTEROL (test code = 2210) 265 MG/DL TRIGLYCERIDES (test code = 2232) 541 MG/DL HDL CHOLESTEROL (test code = 2220) 36 MG/DL CALC LDL CHOL (test code = 2237) NOTE MG/DL RISK RATIO LDL/HDL (test cod e = 2238) (NOTE) RATIO Yuri KleinHEMOGLOBIN [id number] 00:00:00* Test Item Value Reference Range Interpretation Comme nts HEMOGLOBIN A1c (test code = 24514) 5.8 % Yuri KleinSEDIMENTATION [id number] 00:00:00* Test Item Value Reference Range Interpretation Comme nts SEDIMENTATION RATE (test cod e = 1017) 3 MM/HOUR Yuri KleinCBC W/AUTO [id number] 00:00:00* Test Item Value Reference Range Interpretation [...] (test code = 1015) 195 K/UL Yuri F AustinHEMOGLOBIN [id number] 00:00:00* Test Item Value Reference Range Interpretation Comme nts HEMOGLOBIN A1c (test code = 53817) 5.8 % Yuri Beverly AustinSEDIMENTATION [id number] 00:00:00* Test Item Value Reference Range Interpretation Comme nts SEDIMENTATION RATE (test cod e = 1017) 3 MM/HOUR Yuri Beverly AustinCBC W/AUTO [id number] 00:00:00* Test Item Value Reference Range Interpretation [...] (test code = 1015) 195 K/UL Yuri KleinHEMOGLOBIN [id number] 00:00:00* Test Item Value Reference Range Interpretation Comme nts HEMOGLOBIN A1c (test code = 11653) 5.8 % Yuri Beverly AustinSEDIMENTATION [id number] 00:00:00* Test Item Value Reference Range Interpretation Comme nts SEDIMENTATION RATE (test cod e = 1017) 3 MM/HOUR Yuri Beverly AustinCBC W/AUTO [id number] 00:00:00* Test Item Value Reference Range Interpretation [...] = 1015) 195 K/UL Yuri Beverly AustinHEMOGLOBIN [id number] 00:00:00* Test Item Value Reference Range Interpretation Comme nts HEMOGLOBIN A1c (test code = 15289) 5.8 % Yuri Beverly AustinSEDIMENTATION [id number] 00:00:00* Test Item Value Reference Range Interpretation Comme nts SEDIMENTATION RATE (test cod e = 1017) 3 MM/HOUR Yuri Beverly AustinCBC W/AUTO [id number] 00:00:00* Test Item Value Reference Range Interpretation [...] = 1015) 195 K/UL Yuri Beverly AustinHEMOGLOBIN [id number] 00:00:00* Test Item Value Reference Range Interpretation Comme nts HEMOGLOBIN A1c (test code = 02192) 5.8 % Yuri Beverly AustinSEDIMENTATION [id number] 00:00:00* Test Item Value Reference Range Interpretation Comme nts SEDIMENTATION RATE (test cod e = 1017) 3 MM/HOUR Yuri Beverly AustinCBC W/AUTO [id number] 00:00:00* Test Item Value Reference Range Interpretation [...] = 1015) 195 K/UL Yuri Beverly AustinHEMOGLOBIN [id number] 00:00:00* Test Item Value Reference Range Interpretation Comme nts HEMOGLOBIN A1c (test code = 48466) 5.8 % Yuri Beverly AustinSEDIMENTATION [id number] 00:00:00* Test Item Value Reference Range Interpretation Comme nts SEDIMENTATION RATE (test cod e = 1017) 3 MM/HOUR Yuri Beverly PremontCBC W/AUTO [id number] 00:00:00* Test Item Value Reference Range Interpretation [...] code = 1015) 195 K/UL Yuri Beverly ErnieCORTISOL, A.M. [id number] 00:00:00* Test Item Value Reference Range Interpretation Comme nts CORTISOL, A.M. SPECIMEN (bev t code = 4267) 11 UG/DL Yuri F [id number] 00:00:00* Test Item Value Reference Range Interpretation Comme nts MAGNESIUM (test code = 2226) 1.9 MG/DL Yuri F AustinCORTISOL, P.M. [id number] 00:00:00* Test Item Value Reference Range Interpretation Comme nts CORTISOL, P.M. SPECIMEN (bev t code = 4269) 7 UG/DL Yuri F AustinCORTISOL, A.M. [id number] 00:00:00* Test Item Value Reference Range Interpretation Comme nts CORTISOL, A.M. SPECIMEN (bev t code = 4267) 11 UG/DL Yuri F [id number] 00:00:00* Test Item Value Reference Range Interpretation Comme nts MAGNESIUM (test code = 2226) 1.9 MG/DL Yuri F AustinCORTISOL, P.M. [id number] 00:00:00* Test Item Value Reference Range Interpretation Comme nts CORTISOL, P.M. SPECIMEN (bev t code = 4269) 7 UG/DL Yuri F AustinCORTISOL, A.M. [id number] 00:00:00* Test Item Value Reference Range Interpretation Comme nts CORTISOL, A.M. SPECIMEN (bev t code = 4267) 11 UG/DL Yuri F [id number] 00:00:00* Test Item Value Reference Range Interpretation Comme nts MAGNESIUM (test code = 2226) 1.9 MG/DL Yuri F AustinCORTISOL, P.M. [id number] 00:00:00* Test Item Value Reference Range Interpretation Comme nts CORTISOL, P.M. SPECIMEN (bev t code = 4269) 7 UG/DL Yuri F AustinCORTISOL, A.M. [id number] 00:00:00* Test Item Value Reference Range Interpretation Comme nts CORTISOL, A.M. SPECIMEN (bev t code = 4267) 11 UG/DL Yuri F [id number] 00:00:00* Test Item Value Reference Range Interpretation Comme nts MAGNESIUM (test code = 2226) 1.9 MG/DL Yuri F AustinCORTISOL, P.M. [id number] 00:00:00* Test Item Value Reference Range Interpretation Comme nts CORTISOL, P.M. SPECIMEN (bev t code = 4269) 7 UG/DL Yuri Beverly AustinCORTISOL, A.M. [id number] 00:00:00* Test Item Value Reference Range Interpretation Comme nts CORTISOL, A.M. SPECIMEN (bev t code = 4267) 11 UG/DL Yuri Beverly [id number] 00:00:00* Test Item Value Reference Range Interpretation Comme nts MAGNESIUM (test code = 2226) 1.9 MG/DL Yuri Beverly AustinCORTISOL, P.M. [id number] 00:00:00* Test Item Value Reference Range Interpretation Comme nts CORTISOL, P.M. SPECIMEN (bev t code = 4269) 7 UG/DL Yuri Beverly AustinCORTISOL, A.M. [id number] 00:00:00* Test Item Value Reference Range Interpretation Comme nts CORTISOL, A.M. SPECIMEN (bev t code = 4267) 11 UG/DL Yuri Beverly [id number] 00:00:00* Test Item Value Reference Range Interpretation Comme nts MAGNESIUM (test code = 2226) 1.9 MG/DL Yuri Beverly AustinCORTISOL, P.M. [id number] 00:00:00* Test Item Value Reference Range Interpretation Comme nts CORTISOL, P.M. SPECIMEN (bev t code = 4269) 7 UG/DL Yuri Beverly [id number] 00:00:00* Test Item Value Reference Range Interpretation Comme nts TESTOSTERONE (test code = 2830) 430 NG/DL TESTOSTERONE REF RANGE (test code = 45757) SEE ABOVE Yuri F [id number] 00:00:00* Test Item Value Reference Range Interpretation Comme nts TESTOSTERONE (test code = 2830) 430 NG/DL TESTOSTERONE REF RANGE (test code = 56493) SEE ABOVE Yuri F [id number] 00:00:00* Test Item Value Reference Range Interpretation Comme nts TESTOSTERONE (test code = 2830) 430 NG/DL TESTOSTERONE REF RANGE (test code = 56792) SEE ABOVE Yuri F [id number] 00:00:00* Test Item Value Reference Range Interpretation Comme nts TESTOSTERONE (test code = 2830) 430 NG/DL TESTOSTERONE REF RANGE (test code = 48725) SEE ABOVE Yuri Beverly [id number] 00:00:00* Test Item Value Reference Range Interpretation Comme nts TESTOSTERONE (test code = 2830) 430 NG/DL TESTOSTERONE REF RANGE (test code = 06336) SEE ABOVE Yuri Beverly [id number] 00:00:00* Test Item Value Reference Range Interpretation Comme nts TESTOSTERONE (test code = 2830) 430 NG/DL TESTOSTERONE REF RANGE (test code = 19134) SEE ABOVE Yuri Beverly [id number] 00:00:00* Test Item Value Reference Range Interpretation Comme nts PROLACTIN (test code = 2800) 5.0 NG/ML Yuri Beverly AustinPSA, FREE AND [id number] 00:00:00* Test Item Value Reference Range Interpretation Comme nts PROSTATIC SPECIFIC AG (test code = 529239) 0.7 NG/ML FREE PSA (test code = 694789) 0.34 NG/ML % FREE PSA (test code = 157710) 49 % Yuri Beverly AustinFOLLICLE STIM [id number] 00:00:00* Test Item Value Reference Range Interpretation Comme nts FOLLICLE STIM HORMONE (test code = 2700) 2.4 MIU/ML FSH INTERPRETATION: (test co de = 01267) (NOTE) Yuri Beverly [id number] 00:00:00* Test Item Value Reference Range Interpretation Comme nts PROLACTIN (test code = 2800) 5.0 NG/ML Yuri Beverly AustinPSA, FREE AND [id number] 00:00:00* Test Item Value Reference Range Interpretation Comme nts PROSTATIC SPECIFIC AG (test code = 607769) 0.7 NG/ML FREE PSA (test code = 404412) 0.34 NG/ML % FREE PSA (test code = 887957) 49 % Yuri Beverly AustinFOLLICLE STIM [id number] 00:00:00* Test Item Value Reference Range Interpretation Comme nts FOLLICLE STIM HORMONE (test code = 2700) 2.4 MIU/ML FSH INTERPRETATION: (test co de = 92909) (NOTE) Yuri Beverly [id number] 00:00:00* Test Item Value Reference Range Interpretation Comme nts PROLACTIN (test code = 2800) 5.0 NG/ML Yuri Beverly AustinPSA, FREE AND [id number] 00:00:00* Test Item Value Reference Range Interpretation Comme nts PROSTATIC SPECIFIC AG (test code = 720523) 0.7 NG/ML FREE PSA (test code = 539474) 0.34 NG/ML % FREE PSA (test code = 938890) 49 % Yuri Beverly AustinFOLLICLE STIM [id number] 00:00:00* Test Item Value Reference Range Interpretation Comme nts FOLLICLE STIM HORMONE (test code = 2700) 2.4 MIU/ML FSH INTERPRETATION: (test co de = 13208) (NOTE) Yuri Beverly [id number] 00:00:00* Test Item Value Reference Range Interpretation Comme nts PROLACTIN (test code = 2800) 5.0 NG/ML Yuri Beverly AustinPSA, FREE AND [id number] 00:00:00* Test Item Value Reference Range Interpretation Comme nts PROSTATIC SPECIFIC AG (test code = 239309) 0.7 NG/ML FREE PSA (test code = 202337) 0.34 NG/ML % FREE PSA (test code = 539895) 49 % Yuri Beverly AustinFOLLICLE STIM [id number] 00:00:00* Test Item Value Reference Range Interpretation Comme nts FOLLICLE STIM HORMONE (test code = 2700) 2.4 MIU/ML FSH INTERPRETATION: (test co de = 52760) (NOTE) Yuri Beverly [id number] 00:00:00* Test Item Value Reference Range Interpretation Comme nts PROLACTIN (test code = 2800) 5.0 NG/ML Yuri Beverly AustinPSA, FREE AND [id number] 00:00:00* Test Item Value Reference Range Interpretation Comme nts PROSTATIC SPECIFIC AG (test code = 558352) 0.7 NG/ML FREE PSA (test code = 528483) 0.34 NG/ML % FREE PSA (test code = 713020) 49 % Yuri Beverly AustinFOLLICLE STIM [id number] 00:00:00* Test Item Value Reference Range Interpretation Comme nts FOLLICLE STIM HORMONE (test code = 2700) 2.4 MIU/ML FSH INTERPRETATION: (test co de = 88496) (NOTE) Yuri [id number] 00:00:00* Test Item Value Reference Range Interpretation Comme nts PROLACTIN (test code = 2800) 5.0 NG/ML Yuri KleinPSA, FREE AND [id number] 00:00:00* Test Item Value Reference Range Interpretation Comme nts PROSTATIC SPECIFIC AG (test code = 216938) 0.7 NG/ML FREE PSA (test code = 613683) 0.34 NG/ML % FREE PSA (test code = 968227) 49 % Yuri KleinFOLLICLE STIM [id number] 00:00:00* Test Item Value Reference Range Interpretation Comme nts FOLLICLE STIM HORMONE (test code = 2700) 2.4 MIU/ML FSH INTERPRETATION: (test co de = 14347) (NOTE) Yuri KleinHEMOGLOBIN [id number] 00:00:00* Test Item Value Reference Range Interpretation Comme nts HEMOGLOBIN A1c (test code = 04965) 5.8 % Yuri KleinTHYROID II PROFILE (T3U, T4, T7, TSH)2015-04-23 00:00:00* Test Item Value Reference Range Interpretation Comme nts T3 UPTAKE (test code = 2817) 28.4 % T4 (THYROXINE) (test code = 2819) 7.5 UG/DL CALCULATED T7 (FTI) (test co de = 2820) 2.13 TSH (test code = 2821) 2.8 UIU/ML Yuri KleinCOMPREHENSIVE METABOLIC [id number] 00:00:00* Test Item Value Reference Range Interpretation Comme nts GLUCOSE (test code = 2217) 89 MG/DL BUN (test code = 2208) 13 MG/DL CREATININE (test code = 2214) 1.0 MG/DL eGFR AMER. (test cod e = 57765) 101 ML/MIN/1.73 eGFR NON- AMER. (test code = 46011) 83 ML/MIN/1.73 CALCULATED BUN/CREAT (test code = [...] code = 2219) 24 U/L Yuri KleinLIPID [id number] 00:00:00* Test Item Value Reference Range Interpretation Comme nts CHOLESTEROL (test code = 2210) 259 MG/DL TRIGLYCERIDES (test code = 2232) 176 MG/DL HDL CHOLESTEROL (test code = 2220) 48 MG/DL CALCULATED LDL CHOL (test co de = 2237) 176 MG/DL RISK RATIO LDL/HDL (test cod e = 2238) 3.66 RATIO Yuri KleinCBC W/AUTO [id number] 00:00:00* Test Item Value Reference Range Interpretation [...] code = 1015) 198 K/UL Yuri KleinHEMOGLOBIN [id number] 00:00:00* Test Item Value Reference Range Interpretation Comme nts HEMOGLOBIN A1c (test code = 86203) 5.8 % Yuri KleinTHYROID II PROFILE (T3U, T4, T7, TSH)2015-04-23 00:00:00* Test Item Value Reference Range Interpretation Comme nts T3 UPTAKE (test code = 2817) 28.4 % T4 (THYROXINE) (test code = 2819) 7.5 UG/DL CALCULATED T7 (FTI) (test co de = 2820) 2.13 TSH (test code = 2821) 2.8 UIU/ML Yuri KleinCOMPREHENSIVE METABOLIC [id number] 00:00:00* Test Item Value Reference Range Interpretation Comme nts GLUCOSE (test code = 2217) 89 MG/DL BUN (test code = 2208) 13 MG/DL CREATININE (test code = 2214) 1.0 MG/DL eGFR AMER. (test cod e = 60625) 101 ML/MIN/1.73 eGFR NON- AMER. (test code = 75502) 83 ML/MIN/1.73 CALCULATED BUN/CREAT (test code = [...] code = 2219) 24 U/L Yuri KleinLIPID [id number] 00:00:00* Test Item Value Reference Range Interpretation Comme nts CHOLESTEROL (test code = 2210) 259 MG/DL TRIGLYCERIDES (test code = 2232) 176 MG/DL HDL CHOLESTEROL (test code = 2220) 48 MG/DL CALCULATED LDL CHOL (test co de = 2237) 176 MG/DL RISK RATIO LDL/HDL (test cod e = 2238) 3.66 RATIO Yuri KleinCBC W/AUTO [id number] 00:00:00* Test Item Value Reference Range Interpretation [...] code = 1015) 198 K/UL Yuri KleinHEMOGLOBIN [id number] 00:00:00* Test Item Value Reference Range Interpretation Comme [facility] HEMOGLOBIN A1c (test code = 52784) 5.8 % Yuri KleinTHYROID II PROFILE (T3U, T4, T7, TSH)2015-04-23 00:00:00* Test Item Value Reference Range Interpretation Comme [facility] T3 UPTAKE (test code = 2817) 28.4 % T4 (THYROXINE) (test code = 2819) 7.5 UG/DL CALCULATED T7 (FTI) (test co de = 2820) 2.13 TSH (test code = 2821) 2.8 UIU/ML Yuri Beverly ErnieCOMPREHENSIVE METABOLIC [id number] 00:00:00* Test Item Value Reference Range Interpretation Comme nts GLUCOSE (test code = 2217) 89 MG/DL BUN (test code = 2208) 13 MG/DL CREATININE (test code = 2214) 1.0 MG/DL eGFR AMER. (test cod e = 54912) 101 ML/MIN/1.73 eGFR NON- AMER. (test code = 52937) 83 ML/MIN/1.73 CALCULATED BUN/CREAT (test code = [...] code = 2219) 24 U/L Yuri KleinLIPID [id number] 00:00:00* Test Item Value Reference Range Interpretation Comme nts CHOLESTEROL (test code = 2210) 259 MG/DL TRIGLYCERIDES (test code = 2232) 176 MG/DL HDL CHOLESTEROL (test code = 2220) 48 MG/DL CALCULATED LDL CHOL (test co de = 2237) 176 MG/DL RISK RATIO LDL/HDL (test cod e = 2238) 3.66 RATIO Yuri KleinCBC W/AUTO [id number] 00:00:00* Test Item Value Reference Range Interpretation [...] code = 1015) 198 K/UL Yuri KleinHEMOGLOBIN [id number] 00:00:00* Test Item Value Reference Range Interpretation Comme nts HEMOGLOBIN A1c (test code = 91961) 5.8 % Yuri KleinTHYROID II PROFILE (T3U, T4, T7, TSH)2015-04-23 00:00:00* Test Item Value Reference Range Interpretation Comme nts T3 UPTAKE (test code = 2817) 28.4 % T4 (THYROXINE) (test code = 2819) 7.5 UG/DL CALCULATED T7 (FTI) (test co de = 2820) 2.13 TSH (test code = 2821) 2.8 UIU/ML Yuri KleinCOMPREHENSIVE METABOLIC [id number] 00:00:00* Test Item Value Reference Range Interpretation Comme nts GLUCOSE (test code = 2217) 89 MG/DL BUN (test code = 2208) 13 MG/DL CREATININE (test code = 2214) 1.0 MG/DL eGFR AMER. (test cod e = 76769) 101 ML/MIN/1.73 eGFR NON- AMER. (test code = 06451) 83 ML/MIN/1.73 CALCULATED BUN/CREAT (test code = [...] code = 2219) 24 U/L Yuri KleinLIPID [id number] 00:00:00* Test Item Value Reference Range Interpretation Comme nts CHOLESTEROL (test code = 2210) 259 MG/DL TRIGLYCERIDES (test code = 2232) 176 MG/DL HDL CHOLESTEROL (test code = 2220) 48 MG/DL CALCULATED LDL CHOL (test co de = 2237) 176 MG/DL RISK RATIO LDL/HDL (test cod e = 2238) 3.66 RATIO Yuri KleinCBC W/AUTO [id number] 00:00:00* Test Item Value Reference Range Interpretation [...] code = 1015) 198 K/UL Yuri KleinHEMOGLOBIN [id number] 00:00:00* Test Item Value Reference Range Interpretation Comme mitul HEMOGLOBIN A1c (test code = 69080) 5.8 % Yuri KleinTHYROID II PROFILE (T3U, T4, T7, TSH)2015-04-23 00:00:00* Test Item Value Reference Range Interpretation Comme nts T3 UPTAKE (test code = 2817) 28.4 % T4 (THYROXINE) (test code = 2819) 7.5 UG/DL CALCULATED T7 (FTI) (test co de = 2820) 2.13 TSH (test code = 2821) 2.8 UIU/ML Yuri KleinCOMPREHENSIVE METABOLIC [id number] 00:00:00* Test Item Value Reference Range Interpretation Comme nts GLUCOSE (test code = 2217) 89 MG/DL BUN (test code = 2208) 13 MG/DL CREATININE (test code = 2214) 1.0 MG/DL eGFR AMER. (test cod e = 90260) 101 ML/MIN/1.73 eGFR NON- AMER. (test code = 10894) 83 ML/MIN/1.73 CALCULATED BUN/CREAT (test code = [...] (test code = 2219) 24 U/L Yuri Beverly ErnieLIPID [id number] 00:00:00* Test Item Value Reference Range Interpretation Comme nts CHOLESTEROL (test code = 2210) 259 MG/DL TRIGLYCERIDES (test code = 2232) 176 MG/DL HDL CHOLESTEROL (test code = 2220) 48 MG/DL CALCULATED LDL CHOL (test co de = 2237) 176 MG/DL RISK RATIO LDL/HDL (test cod e = 2238) 3.66 RATIO Yuri Siria ErnieCBC W/AUTO [id number] 00:00:00* Test Item Value Reference Range Interpretation [...] code = 1015) 198 K/UL Yuri Siria ErnieHEMOGLOBIN [id number] 00:00:00* Test Item Value Reference Range Interpretation Comme [facility] HEMOGLOBIN A1c (test code = 22261) 5.8 % Yuri KleinTHYROID II PROFILE (T3U, T4, T7, TSH)2015-04-23 00:00:00* Test Item Value Reference Range Interpretation Comme nts T3 UPTAKE (test code = 2817) 28.4 % T4 (THYROXINE) (test code = 2819) 7.5 UG/DL CALCULATED T7 (FTI) (test co de = 2820) 2.13 TSH (test code = 2821) 2.8 UIU/ML Yuri KleinCOMPREHENSIVE METABOLIC [id number] 00:00:00* Test Item Value Reference Range Interpretation Comme nts GLUCOSE (test code = 2217) 89 MG/DL BUN (test code = 2208) 13 MG/DL CREATININE (test code = 2214) 1.0 MG/DL eGFR AMER. (test cod e = 97554) 101 ML/MIN/1.73 eGFR NON- AMER. (test code = 34827) 83 ML/MIN/1.73 CALCULATED BUN/CREAT (test code = [...] code = 2219) 24 U/L Yuri KleinLIPID [id number] 00:00:00* Test Item Value Reference Range Interpretation Comme nts CHOLESTEROL (test code = 2210) 259 MG/DL TRIGLYCERIDES (test code = 2232) 176 MG/DL HDL CHOLESTEROL (test code = 2220) 48 MG/DL CALCULATED LDL CHOL (test co de = 2237) 176 MG/DL RISK RATIO LDL/HDL (test cod e = 2238) 3.66 RATIO Yuri KleinCBC W/AUTO [id number] 00:00:00* Test Item Value Reference Range Interpretation [...] (test code = 1015) 198 K/UL Yuri Klein
[2024-11-24] MEDS ORDERED: ACETAMINOPHEN 500 MG TAB ONE (19:42)
[2024-11-24] MEDS ORDERED: LIDOCAINE 4% PATCH ONE (19:42)
[2024-11-24] MEDS ORDERED: CYCLOBENZAPRINE 10 MG TAB ONE (19:42)
--- NOTE | 2024-11-24 20:23 | RAD REPORT ---
EXAMINATION: Shoulder Left 2+ Views CLINICAL INDICATION: Male, 49 years old. L shoulder pain COMPARISON: No prior exam. FINDINGS: No acute fracture. No malalignment/dislocation. No significant focal degenerative change. Other: n/a IMPRESSION: No acute osseous abnormality.
--- NOTE | 2024-11-24 20:32 | EDPHYS ---
Physician Documentation [facility] Name: Kostas Castelan Age: 49 yrs Sex: Male : 1975 Arrival Date: 11/24/2024 Time: 19:17 Bed 6 Private MD: ED Physician Gaston Chan HPI: 11/24 20:05 This 49 yrs old Male presents to ER via Ambulatory with complaints of Shoulder ec2 Pain. 20:05 Patient arrives today for evaluation of left shoulder pain. Was here yesterday and was ec2 given IM Toradol complaining of pain at the injection site.. Historical: - Allergies: 19:42 No Known Allergies; tm6 - PMHx: 19:42 DM2; HTN; tm6 - PSHx: 19:42 None; tm6 - Immunization history:: Flu vaccine is not up to date. - Infectious Disease History:: Denies. - Social history:: Smoking status: Patient denies any tobacco usage or history of. ROS: 20:05 Constitutional: as per hpi ec2 Exam: 20:05 Constitutional: GEN: NAD Head: atraumatic Eyes: EOMI Ears: External ears are ec2 normal. CV: regular rate LUNGS: no respiratory distress ABD: non-distended SKIN: Left shoulder without erythema or warmth or discharge appreciated. Good range of motion at the shoulder. No evidence of trauma, no crepitus noted. MSK: no evidence of trauma Vital Signs: 19:39 BP 127 / 94; Pulse 80; Resp 19; Temp 97.5(O); Pulse Ox 99% on R/A; MAP 106 mmHg; Weight tm6 83.01 kg; Height 5 ft. 9 in. ; Pain 5/10; 20:42 BP 137 / 96; Pulse 73; Resp 18; Temp 97.5; Pulse Ox 98% ; Pain 9/10; bp 19:39 Body Mass Index 27.02 (83.01 kg, 175.26 cm) tm6 19:39 Pain Scale: Adult tm6 20:42 Pain Scale: Adult bp [place] Coma Score: 19:32 Eye Response: spontaneous(4). Motor Response: obeys commands(6). Verbal Response: bp oriented(5). Total: 15. 20:42 Eye Response: spontaneous(4). Motor Response: obeys commands(6). Verbal Response: bp oriented(5). Total: 15. MDM: 19:31 Medical Screening Exam initiated ec2 20:05 Data reviewed: vital signs, nurses notes. ED course: Patient arrives today for ec2 evaluation of left shoulder pain after recent injection to the left shoulder. Examination yields well-appearing nontoxic individuals otherwise in no acute distress with a reassuring MSK and skin examination. Will obtain shoulder x-ray. Suspect postinjection pain, doubt fracture, doubt dislocation, doubt infection given well appearance.. 20:31 ED course: Shoulder x-ray independently reviewed and interpreted by me, shows no bony ec2 fracture or injury. Will discharge home, instructed on mlyh-wxp-ogngker medications, will prescribe the patient Flexeril as well for pain. Return precautions given.. 11/24 19:36 Order name: Shoulder Left (2 View) XRAY; Complete Time: 20:31 ec2 Administered Medications: 19:45 Drug: Lidoderm Topical Patch 5 % (700 mg/patch) 1 patches Topical once; leave on for 12 bp hours; cover most painful area; may cut into smaller pieces Route: Topical; Site: affected area; 20:43 Follow up: Response: No adverse reaction bp 19:45 Drug: Acetaminophen PO 1000 mg PO once Route: PO; bp 20:43 Follow up: Response: No adverse reaction bp 19:45 Drug: Cyclobenzaprine PO 10 mg PO once Route: PO; bp 20:43 Follow up: Response: No adverse reaction bp Disposition Summary: 11/24/24 20:31 Discharge Ordered Notes: Location: Home ec2 Condition: Stable ec2 Diagnosis - Shoulder Pain after injection ec2 Followup: ec2 - With: Private Physician - When: - Reason: Re-evaluation by your physician Discharge Instructions: - Discharge Summary Sheet ec2 - Post-Injection Inflammatory Reaction ec2 Forms: - Medication Reconciliation Form ec2 - Antibiotic Education ec2 - Prescription Opioid Use ec2 - Patient Portal Instructions ec2 - Leadership Thank You Letter ec2 Prescriptions: - Cyclobenzaprine 5 mg Oral Tablet - take 1 tablet ORAL route 3 times per day As needed; 15 tablet; Refills: 0, ec2 Product Selection Permitted Signatures: Dispatcher [employer] David Lopez RN RN bp Gaston Chan MD MD ec2 Zohreh, Tawney, RN RN tm6
--- NOTE | 2024-11-24 20:32 | ER ---
Nurse's Notes [facility] Name: Kostas Castelan Age: 49 yrs Sex: Male : 1975 Arrival Date: 11/24/2024 Time: 19:17 Bed 6 Private MD: Diagnosis: Shoulder Pain after injection Presentation: 11/24 19:39 Chief complaint: Patient states: I came here yesterday for some muscle spasms in my tm6 back, I got an injection in my left arm for the pain, but now the site is hurting and hasn't gone away. Coronavirus screen: Client denies travel out of the [place] in the last 14 days. Ebola Screen: Patient negative for fever greater than or equal to 101.5 degrees Fahrenheit, and additional compatible Ebola Virus Disease symptoms Patient denies exposure to infectious person. Patient denies travel to an Ebola-affected area in the 21 days before illness onset. No symptoms or risks identified at this time. Initial Sepsis Screen: Does the patient meet any 2 criteria? No. Patient's initial sepsis screen is negative. Does the patient have a suspected source of infection? No. Patient's initial sepsis screen is negative. Risk Assessment: Do you want to hurt yourself or someone else? Patient reports no desire to harm self or others. Onset of symptoms was November 23, 2024. 19:39 Method Of Arrival: Ambulatory tm6 19:39 Acuity: ANA MARIA 4 tm6 Triage Assessment: 19:42 General: Appears in no apparent distress. Behavior is calm, cooperative. Pain: tm6 Complains of pain in anterior aspect of left shoulder and posterior aspect of left shoulder Pain currently is 5 out of 10 on a pain scale. EENT: No signs and/or symptoms were reported regarding the EENT system. Neuro: Level of Consciousness is awake, alert, obeys commands, Oriented to person, place, time, situation. Cardiovascular: Patient's skin is warm and dry. Respiratory: Airway is patent Respiratory effort is even, unlabored, Respiratory pattern is regular, symmetrical. GI: No signs and/or symptoms were reported involving the gastrointestinal system. Abdomen is flat, non-distended. : No signs and/or symptoms were reported regarding the genitourinary system. Derm: No signs and/or symptoms reported regarding the dermatologic system. Musculoskeletal: Reports pain in left arm. Historical: - Allergies: 19:42 No Known Allergies; tm6 - PMHx: 19:42 DM2; HTN; tm6 - PSHx: 19:42 None; tm6 - Immunization history:: Flu vaccine is not up to date. - Infectious Disease History:: Denies. - Social history:: Smoking status: Patient denies any tobacco usage or history of. Screenin:32 [facility] ED Fall Risk Assessment (Adult) History of falling in the last 3 months, bp including since admission No falls in past 3 months (0 pts) Confusion or Disorientation No (0 pts) Intoxicated or Sedated No (0 pts) Impaired Gait No (0 pts) Mobility Assist Device Used No (0 pt) Altered Elimination No (0 pt) Score/Fall Risk Level 0 - 2 = Low Risk Oriented to surroundings, Maintained a safe environment, Educated pt \T\ family on fall prevention, incl call for assistance when getting out of bed, Assessed \T\ reinforced patient's understanding of fall precautions, Hourly rounding (assess needs \T\ fall precautionary measures) done, Used ambulatory aids as needed (educated on \T\ assisted with), Used gait belt as appropriate. Abuse screen: Denies threats or abuse. Nutritional screening: No deficits noted. Tuberculosis screening: No symptoms or risk factors identified. Assessment: 19:32 Reassessment: Patient appears in no apparent distress at this time. Patient and/or bp family updated on plan of care and expected duration. Pain level reassessed. Patient is alert, oriented x 3, equal unlabored respirations, skin warm/dry/pink. General: Appears in no apparent distress. comfortable, Behavior is calm, cooperative, appropriate for age. Pain: Complains of pain in LEFT SHOULDER Pain currently is 7 out of 10 on a pain scale. Neuro: No deficits noted. Level of Consciousness is awake, alert, obeys commands, Oriented to person, place, time, situation, Appropriate for age Network Coordinator are equal bilaterally Moves all extremities. Full function Gait is steady, Speech is normal, Facial symmetry appears normal, Pupils are PERRLA, Pupil Size: 3 MM. Cardiovascular: Denies chest pain, Capillary refill < 3 seconds in bilateral fingers Patient's skin is warm and dry. Respiratory: Airway is patent Trachea midline Respiratory effort is even, unlabored, Respiratory pattern is regular, symmetrical. GI: No signs and/or symptoms were reported involving the gastrointestinal system. : No signs and/or symptoms were reported regarding the genitourinary system. EENT: No signs and/or symptoms were reported regarding the EENT system. Derm: No signs and/or symptoms reported regarding the dermatologic system. Musculoskeletal: Circulation, motion, and sensation intact. Capillary refill Range of motion: intact in all extremities, Reports pain in LEFT SHOULDER. 20:42 Reassessment: Patient appears in no apparent distress at this time. Patient and/or bp family updated on plan of care and expected duration. Pain level reassessed. Patient is alert, oriented x 3, equal unlabored respirations, skin warm/dry/pink. Patient states symptoms have improved. Vital Signs: 19:39 BP 127 / 94; Pulse 80; Resp 19; Temp 97.5(O); Pulse Ox 99% on R/A; MAP 106 mmHg; Weight tm6 83.01 kg; Height 5 ft. 9 in. ; Pain 5/10; 20:42 BP 137 / 96; Pulse 73; Resp 18; Temp 97.5; Pulse Ox 98% ; Pain 9/10; bp 19:39 Body Mass Index 27.02 (83.01 kg, 175.26 cm) tm6 19:39 Pain Scale: Adult tm6 20:42 Pain Scale: Adult bp [place] Coma Score: 19:32 Eye Response: spontaneous(4). Motor Response: obeys commands(6). Verbal Response: bp oriented(5). Total: 15. 20:42 Eye Response: spontaneous(4). Motor Response: obeys commands(6). Verbal Response: bp oriented(5). Total: 15. ED Course: 19:18 Patient arrived in ED. jj6 19:19 Gaston Chan MD is Attending Physician. ec2 19:23 David Michel, LEFTY is Primary Nurse. bp 19:31 Gaston Chan MD is Attending Physician. ec2 19:32 Patient has correct armband on for positive identification. Bed in low position. Call bp light in reach. Side rails up X 1. Client placed on continuous cardiac and pulse oximetry monitoring. NIBP monitoring applied. Pulse ox on. NIBP on. Door closed. Noise minimized. Verbal reassurance given. Head of bed elevated. 19:32 No provider procedures requiring assistance completed. Patient did not have IV access bp during this emergency room visit. Patient maintains SpO2 saturation greater than 95% on room air. 19:42 Triage completed. tm6 19:42 Arm band placed on right wrist. tm6 20:17 Shoulder Left (2 View) XRAY In Process Unspecified. EDMS 20:42 Provided Education on: post er care. bp Administered Medications: 19:45 Drug: Lidoderm Topical Patch 5 % (700 mg/patch) 1 patches Topical once; leave on for 12 bp hours; cover most painful area; may cut into smaller pieces Route: Topical; Site: affected area; 20:43 Follow up: Response: No adverse reaction bp 19:45 Drug: Acetaminophen PO 1000 mg PO once Route: PO; bp 20:43 Follow up: Response: No adverse reaction bp 19:45 Drug: Cyclobenzaprine PO 10 mg PO once Route: PO; bp 20:43 Follow up: Response: No adverse reaction bp Medication: 19:32 VIS not applicable for this client. bp Outcome: 20:31 Discharge ordered by MD. mendez 20:42 Discharged to home ambulatory, with family, bp 20:42 Condition: good 20:42 Condition: stable 20:42 Discharge instructions given to patient, family, Instructed on discharge instructions, follow up and referral plans. no drinking with medication, no driving heavy equipment, medication usage, safety practices, Demonstrated understanding of instructions, follow-up care, medications, Prescriptions given X 1, 20:44 Patient left the ED. bp Signatures: Dispatcher [employer] David Lopez, RN RN bp Padmaja Camilo jj6 Gaston Chan MD MD ec2 Rony Bruner RN RN tm6
[2024-11-24 22:03] VITALS: TEMP 97.5
[2024-11-24 22:04] VITALS: BP 137/96; O2SAT 98
== END 2024-11-24 20:44 | disposition home or self-care (01) ==
LOC: ER 19:17
DX: M25.512 Pain in left shoulder (principal); T80.89XA Other complications following infusion, transfusion and therapeutic injection, initial encounter
CPT/HCPCS: 73030; 99284; J2003

== ENCOUNTER 2024-12-07 17:12 | Emergency (ER) | payer OTHER ==
--- OUTSIDE RECORDS SUMMARY | 2024-12-07 17:17 | XMS REPORT | Continuity of Care Document ---
Author Name Unknown Address [address] [place] [address] [facility] thconnect Address [address] [place] [address] Care Team Providers [facility] Partner Name Role Phone Javad CORBETT, Karol Primary Care Physician [phone] David Fraser Attending Clinician Unavailable Lenny Noonan Attending Clinician Unavailable Physician, No Primary or Family Admitting Clinic raquel Unavailable Payers Payer Name Policy Type Policy Number Effective Date Expirati on Date Source Problems Condition Name Condition Details Condition Category Status Onset Date Resolution Date Last Treatment Date Treating Clinician Comments Source [id number] Testicular hypofuncti on Problem [facility] [id number] Posthitis Problem Commo n [facility] [id number] Phimosis of penis Problem [facility] [id number] ED (erectile dysfunctio n) of organic origin Problem [facility] [id number] Acquired phimosis of penis Problem [facility] Allergies, Adverse Reactions, Alerts Allergy Name Allergy Type Status Severity Reaction(s) Onset Date Inactive Date Treating Clinician Comments Source No Known Allergie s DA Active U 08-03 00:00: 00 [facility] No Known Allergie s DA Active U 08-03 00:00: 00 [facility] Social History Social Habit Start Date Stop Date Quantity Comments Source History of Tobacco Use [facility] Sex Assigned At [facility] Smoking Status Start Date Stop Date Source Never Smoker [facility] Medications Ordered Medication Name Filled Medication Name [...] tablet 05-01 00:00: 00 Yes 1mg Yuri lKein amoxicillin 875 mg-jonnathanmarilumauricio janice clavulanate 125 mg [...] mg tablet 04-12 00:00: 00 Yes 1mg Yuir Klein Prozac 20 mg capsule 2014-11 00:00: [...] height 2023-12-07 16:45:00 69 [in_i] Commo n [facility] weight 2023-12-07 16:45:00 189.0 [lb_av] Co mmon [facility] temperature 2023-12-07 16:45:00 98.3 [degF] Com mon [facility] bmi 2023-12-07 16:45:00 27.91 kg/m2 Comm on [facility] oximetry 2023-12-07 16:45:00 98 % Commo n [facility] respiratory rate 2023-12-07 16:45:00 18 /min Common [facility] blood pressure systolic 2023-12-07 16:45:00 127 mm[Hg] [facility] blood pressure diastolic 2023-12-07 16:45:00 86 mm[Hg] Common [facility] BP Systolic 2024-11-23 10:03:00 124 mm[Hg] [...] Measured 2020-12-26 15:45:00 218.40 pounds Yuri F Erine Height Measured 2020-12-26 15:45:00 69.00 inches Yuri [...] / Time Performed Performing Clinicia n Source [address] Ecg Routine Ecg W/least 12 Lds W/i r 2018-08-02 00:00:00 Yuri Beverly Ernie Ecg Routine Ecg W/least 12 Lds W/i r 2015-05-07 00:00:00 Yuri Klein Ecg Routine Ecg W/least 12 Lds W/i r 2015-04-29 00:00:00 Yuri Klein Encounters Start Date/Time End Date/Time Encounter Type Admission Type Attending [facility] Care Facility Care Department Encounter ID Source 2023-12-07 16:31:00 Outpatient David [facility] [id number] [facility] 2022-07-30 08:36:02 Outpatient David Fraser [facility] [id number] [facility] 2024-11-23 09:57:34 2024-11-23 09:57:34 Outpatient SFA [facility] 1227 Yuri Klein 2024-11-23 00:00:00 2024-11-23 00:00:00 Outpatient Visit SFA [id number] Yuri Klein 2024-10-26 10:46:24 2024-10-26 10:46:24 Outpatient SFA SFA 1129 Yuri Klein 2024-10-26 00:00:00 2024-10-26 00:00:00 Outpatient Visit SFA [id number] Yuri Klein 2024-10-17 09:06:34 2024-10-17 09:06:34 Outpatient SFA SFA 1120 Yuri Klein 2024-10-17 00:00:00 2024-10-17 00:00:00 Outpatient Visit SFA [id number] Yuri Klein 2024-09-28 17:01:21 2024-09-28 17:01:21 Outpatient SFA SFA 1101 Yuri Klein 2024-09-28 00:00:00 2024-09-28 00:00:00 Outpatient Visit SFA [id number] Yuri Klein 2024-08-31 17:34:52 2024-08-31 17:34:52 Outpatient SFA SFA 1004 Yuri Klein 2024-08-31 00:00:00 2024-08-31 00:00:00 Outpatient Visit SFA [id number] Yuri Klein 2024-08-02 17:22:46 2024-08-02 17:22:46 Outpatient SFA [facility] 0905 Yuri Klein 2024-05-01 09:06:38 2024-05-01 09:06:38 Outpatient SFA [facility] [id number] Yuri Klein 2024-05-01 00:00:00 2024-05-01 00:00:00 Outpatient Visit SFA [id number] Yuri Klein 2023-12-07 00:00:00 2023-12-07 00:00:00 OFFICE VISIT ESTAB PT LEVEL 4 STLMLC STLMLC [id number] [facility] 2023-11-18 14:05:30 2023-11-18 14:05:30 Outpatient [facility] 1222 Yuri Klein 2023-10-28 16:34:57 2023-10-28 16:34:57 Outpatient [facility] 1201 Yuri Klein 2023-10-24 11:50:29 2023-10-24 11:50:29 Outpatient [facility] [id number] Yuri Klein 2023-10-17 14:09:26 2023-10-17 14:09:26 Outpatient [facility] 1120 Yuri Klein 2022-04-14 11:49:00 2022-04-14 16:15:00 Emergency EM Lenny Noonan [facility] [id number] 91 [facility] 2022-04-14 11:49:00 2022-04-14 16:15:00 Emergency EM Lenny Noonan [facility] [id number] [facility] Results Test Description Test Time Test Comments Results Result Co mments Source [facility]O [id number] 00:00:00* Test Item Value Reference Range Interpretation [...] ABS NUCLEATED RBCS (test cod e = 55544) 0.00 K/UL Yuri Beverly AustinHIV 1/2 4TH GEN, RFLX [id number] 00:00:00* Test Item Value Reference Range Interpretation Comme nts HIV 1/2 4TH GEN, RFLX CONF ( test code = 3514) NON-REACTIVE Yuri KleinRPR REFLEX TO T. PALLIDUM - [id number] 00:00:00* Test Item Value Reference Range Interpretation Comme nts RPR (test code = 05618) NON-REACTIVE RPR TITER (test code = 3500) NOT INDIC. TITER Yuri KleinVITAMIN [id number] 00:00:00* Test Item Value Reference Range Interpretation Comme nts VITAMIN B-12 (test code = 2840) 735 PG/ML Yuri KleinTSH REFLEX TO FREE [id number] 00:00:00* Test Item Value Reference Range Interpretation Comme nts TSH REFLEX TO FREE T4 (test code = 2834) 2.390 UIU/ML Yuri KleinCBC W/AUTO [id number] 00:00:00* Test Item Value Reference Range Interpretation [...] ABS NUCLEATED RBCS (test cod e = 67433) 0.00 K/UL Yuri KleinHIV 1/2 4TH GEN, RFLX [id number] 00:00:00* Test Item Value Reference Range Interpretation Comme nts HIV 1/2 4TH GEN, RFLX CONF ( test code = 3514) NON-REACTIVE Yuri KleinRPR REFLEX TO T. PALLIDUM - [id number] 00:00:00* Test Item Value Reference Range Interpretation Comme nts RPR (test code = 44622) NON-REACTIVE RPR TITER (test code = 3500) NOT INDIC. TITER Yuri KleinVITAMIN [id number] 00:00:00* Test Item Value Reference Range Interpretation Comme nts VITAMIN B-12 (test code = 2840) 735 PG/ML Yuri KleinHEMOGLOBIN [id number] 00:00:00* Test Item Value Reference Range Interpretation Comme nts HEMOGLOBIN A1c (test code = 72187) 12.4 % Yuri Beverly AustinHEMOGLOBIN [id number] 00:00:00* Test Item Value Reference Range Interpretation Comme nts HEMOGLOBIN A1c (test code = 90220) 12.4 % Yuri Beverly AustinHEMOGLOBIN [id number] 00:00:00* Test Item Value Reference Range Interpretation Comme nts HEMOGLOBIN A1c (test code = 70949) 12.4 % Yuri KleinCOMPREHENSIVE METABOLIC [id number] 00:00:00* Test Item Value Reference Range Interpretation Comme nts GLUCOSE (test code = 2217) 424 MG/DL BUN (test code = 2208) 15 MG/DL CREATININE (test code = 2214) 1.12 MG/DL eGFR (2020 CKD-EPI) (test co de = 83837) 81 ML/MIN/1.73 CALC BUN/CREAT (test code = [...] = 2219) 15 U/L Yuri Beverly AustinLIPID [id number] 00:00:00* Test Item Value Reference Range Interpretation Comme nts CHOLESTEROL (test code = 2210) 352 MG/DL TRIGLYCERIDES (test code = 2232) 328 MG/DL HDL CHOLESTEROL (test code = 2220) 48 MG/DL CALC LDL CHOL (test code = 2237) 248 MG/DL RISK RATIO LDL/HDL (test cod e = 2238) 5.17 RATIO Yuri Beverly AustinALBUMIN/CREATININE RATIO, RANDOM [id number] 00:00:00* Test Item Value Reference Range Interpretation Comme nts CREATININE, URINE, CONC. (te st code = 207) 76.9 MG/DL ALBUMIN, URINE, RANDOM (test code = 09082) 0.2 MG/DL CALC ALBUMIN/CREAT, RND (bev t code = 24613) 3 MG/G Yuri KleinCOMPREHENSIVE METABOLIC [id number] 00:00:00* Test Item Value Reference Range Interpretation Comme nts GLUCOSE (test code = 2217) 424 MG/DL BUN (test code = 2208) 15 MG/DL CREATININE (test code = 2214) 1.12 MG/DL eGFR (2020 CKD-EPI) (test co de = 14706) 81 ML/MIN/1.73 CALC BUN/CREAT (test code = [...] code = 2219) 15 U/L Yuri KleinLIPID [id number] 00:00:00* Test Item Value Reference Range Interpretation Comme nts CHOLESTEROL (test code = 2210) 352 MG/DL TRIGLYCERIDES (test code = 2232) 328 MG/DL HDL CHOLESTEROL (test code = 2220) 48 MG/DL CALC LDL CHOL (test code = 2237) 248 MG/DL RISK RATIO LDL/HDL (test cod e = 2238) 5.17 RATIO Yuri Beverly AustinALBUMIN/CREATININE RATIO, RANDOM [id number] 00:00:00* Test Item Value Reference Range Interpretation Comme nts CREATININE, URINE, CONC. (te st code = 2071) 76.9 MG/DL ALBUMIN, URINE, RANDOM (test code = 24499) 0.2 MG/DL CALC ALBUMIN/CREAT, RND (bev t code = 11553) 3 MG/G Yuri KleinCOMPREHENSIVE METABOLIC [id number] 00:00:00* Test Item Value Reference Range Interpretation Comme nts GLUCOSE (test code = 2217) 424 MG/DL BUN (test code = 2208) 15 MG/DL CREATININE (test code = 2214) 1.12 MG/DL eGFR (2020 CKD-EPI) (test co de = 11840) 81 ML/MIN/1.73 CALC BUN/CREAT (test code = [...] code = 2219) 15 U/L Yuri KleinLIPID [id number] 00:00:00* Test Item Value Reference Range Interpretation Comme nts CHOLESTEROL (test code = 2210) 352 MG/DL TRIGLYCERIDES (test code = 2232) 328 MG/DL HDL CHOLESTEROL (test code = 2220) 48 MG/DL CALC LDL CHOL (test code = 2237) 248 MG/DL RISK RATIO LDL/HDL (test cod e = 2238) 5.17 RATIO Yuri KleinALBUMIN/CREATININE RATIO, RANDOM [id number] 00:00:00* Test Item Value Reference Range Interpretation Comme nts CREATININE, URINE, CONC. (te st code = 2071) 76.9 MG/DL ALBUMIN, URINE, RANDOM (test code = 12763) 0.2 MG/DL CALC ALBUMIN/CREAT, RND (bev t code = 99322) 3 MG/G Yuri KleinHEMOGLOBIN [id number] 07:05:36* Test Item Value Reference Range Interpretation Comme nts HEMOGLOBIN A1c (test code = 58387) 12.0 % 4.2-5.6 H CITIZEN OF [place] [employer] GUIDELINES FOR HGB A1C: [...] INDICATED, ALL TESTING PERFORMED AT [facility] [employer] [address] [place] [address] GLASS TECHNOLOGIST: NADIA CONDE M.D. IA NUMBER [id number] [facility] [place]. [id number] COMPREHENSIVE METABOLIC [id number] 04:46:54* Test Item Value Reference Range Interpretation Comme nts GLUCOSE (test code = 2217) 371 MG/DL 70-99 H BUN (test code = 2207) 16 MG/DL 6-20 CREATININE (test code = 2214) 0.74 MG/DL 0.80-1.40 L eGFR (2020 CKD-EPI) (test code = 32999) 112 ML/MIN/1.73 >60 CALC BUN/CREAT (test code [...] 20 U/L 5-50 CBC W/AUTO DIFF WITH [id number] 03:00:48* Test Item Value Reference Range Interpretation [...] 0.00-0.10 ABS NUCLEATED RBCS (test code = 71845) 0.00 K/UL 0.00-0.11 HEMOGLOBIN [id number] 00:00:00* Test Item Value Reference Range Interpretation Comme nts HEMOGLOBIN A1c (test code = 65575) 12.0 % Yuri KleinCBC W/AUTO [id number] 00:00:00* Test Item Value Reference Range Interpretation [...] ABS NUCLEATED RBCS (test cod e = 89754) 0.00 K/UL Yuri Beverly ErnieCOMPREHENSIVE METABOLIC [id number] 00:00:00* Test Item Value Reference Range Interpretation [...] code = 2219) 20 U/L Yuri KleinHEMOGLOBIN [id number] 00:00:00* Test Item Value Reference Range Interpretation Comme [facility] HEMOGLOBIN A1c (test code = 12360) 12.0 % Yuri KleinCBC W/AUTO [id number] 00:00:00* Test Item Value Reference Range Interpretation Comme [facility] WBC (test code = 1001) 6.9 [...] ABS NUCLEATED RBCS (test cod e = 76039) 0.00 K/UL Yuri KleinCOMPREHENSIVE METABOLIC [id number] 00:00:00* Test Item Value Reference Range Interpretation Comme nts GLUCOSE (test code = 2217) 371 MG/DL BUN (test code = 2208) 16 MG/DL CREATININE (test code = 2214) 0.74 MG/DL eGFR (2020 CKD-EPI) (test code = 22734) 112 ML/MIN/1.73 CALC BUN/CREAT (test code = [...] code = 2219) 20 U/L Yuri KleinHEMOGLOBIN [id number] 00:00:00* Test Item Value Reference Range Interpretation Comme nts HEMOGLOBIN A1c (test code = 48578) 12.0 % Yuri KleinCBC W/AUTO [id number] 00:00:00* Test Item Value Reference Range Interpretation [...] ABS NUCLEATED RBCS (test cod e = 60753) 0.00 K/UL Yuri F ErnieCOMPREHENSIVE METABOLIC [id number] 00:00:00* Test Item Value Reference Range Interpretation Comme nts GLUCOSE (test code = 2217) 371 MG/DL BUN (test code = 2208) 16 MG/DL CREATININE (test code = 2214) 0.74 MG/DL eGFR (2020 CKD-EPI) (test code = 08515) 112 ML/MIN/1.73 CALC BUN/CREAT (test code = [...] code = 2219) 20 U/L Yuri KleinHEMOGLOBIN [id number] 00:00:00* Test Item Value Reference Range Interpretation Comme nts HEMOGLOBIN A1c (test code = 49500) 12.0 % Yuri KleinCBC W/AUTO [id number] 00:00:00* Test Item Value Reference Range Interpretation [...] ABS NUCLEATED RBCS (test cod e = 42295) 0.00 K/UL Yuri KleinCOMPREHENSIVE METABOLIC [id number] 00:00:00* Test Item Value Reference Range Interpretation Comme nts GLUCOSE (test code = 2217) 371 MG/DL BUN (test code = 2208) 16 MG/DL CREATININE (test code = 2214) 0.74 MG/DL eGFR (2020 CKD-EPI) (test code = 89324) 112 ML/MIN/1.73 CALC BUN/CREAT (test code = [...] code = 2219) 20 U/L Yuri KleinHEMOGLOBIN [id number] 00:00:00* Test Item Value Reference Range Interpretation Comme mitul HEMOGLOBIN A1c (test code = 33169) 12.0 % Yuri KleinCBC W/AUTO [id number] 00:00:00* Test Item Value Reference Range Interpretation [...] ABS NUCLEATED RBCS (test cod e = 59548) 0.00 K/UL Yuri KleinCOMPREHENSIVE METABOLIC [id number] 00:00:00* Test Item Value Reference Range Interpretation Comme nts GLUCOSE (test code = 2217) 371 MG/DL BUN (test code = 2208) 16 MG/DL CREATININE (test code = 2214) 0.74 MG/DL eGFR (2020 CKD-EPI) (test code = 00855) 112 ML/MIN/1.73 CALC BUN/CREAT (test code = [...] code = 2219) 20 U/L Yuri KleinHEMOGLOBIN [id number] 00:00:00* Test Item Value Reference Range Interpretation Comme nts HEMOGLOBIN A1c (test code = 51306) 12.0 % Yuri KleinCBC W/AUTO [id number] 00:00:00* Test Item Value Reference Range Interpretation [...] ABS NUCLEATED RBCS (test cod e = 83846) 0.00 K/UL Yuri KleinCOMPREHENSIVE METABOLIC [id number] 00:00:00* Test Item Value Reference Range Interpretation Comme nts GLUCOSE (test code = 2217) 371 MG/DL BUN (test code = 2208) 16 MG/DL CREATININE (test code = 2214) 0.74 MG/DL eGFR (2020 CKD-EPI) (test code = 56520) 112 ML/MIN/1.73 CALC BUN/CREAT (test code = [...] code = 2219) 20 U/L Yuri Beverly [facility] METABOLIC [id number] 13:33:00* Test Item Value Reference Range Interpretation [...] code = CA) 8.6 mg/dL 8.5-10.1 N [id number] 13:33:00* Test Item Value Reference Range Interpretation Comme nts TROPONIN-HS (test code = TROPI) <4.0 pg/mL 0-45 N CAUTION: Units o f the current test methodology (pg/mL)differ from the prior test methodology (ng/mL) by a factorof 1000. CBC W/O [id number] 13:14:00* Test Item Value Reference Range Interpretation [...] fL 6.7-11.0 H - XR CHEST 1 [id number] 12:09:00 [facility])Name: GREYSON CASTELAN : 1975 Sex: M FAX: Lenny Noonan MD [phone] [place]: B St: PRE Name: GREYSON CASTELAN [facility] : 1975 Age/S: 46/M [address] [facility] Unit #: [id number] Loc: [place] [address] Phys: Mary Ellen Noonan MD Acct: [id number] Dis Date: Status: PRE ER PHONE #: [phone] Exam Date: 04/14/2022 1205 FAX #: [phone] Reason: CHEST PAIN EXAMS: CPT CODE: [id number] XR CHEST 1 V 91759 HISTORY: Chestpain. COMPARISON: August 03, 2018. Location: [facility]. No acute infiltrates, effusion or congestion is noted. The cardiac and mediastinal silhouette are within normal limits. IMPRESSION: No acute infiltrates, effusion or congestion. at 1209 Reported and signed by: Steve Cartagena M.D. CC: Lenny Noonan MD Technologist: Ean RICE(R) Trnscrd Date/Time/By: 04/14/2022 (0298) : By: [email or web address] Orig Print D/T: S: 04/14/2022 (0554) PAGE 1 Signed Report MICROALBUMIN, [id number] 00:00:00* Test Item Value Reference Range Interpretation Comme nts ALBUMIN, URINE, RANDOM (test code = 34715) TEST NOT PERFORMED MG/DL Yuri F AustinMICROALBUMIN, [id number] 00:00:00* Test Item Value Reference Range Interpretation Comme nts ALBUMIN, URINE, RANDOM (test code = 33948) TEST NOT PERFORMED MG/DL Yuri Beverly AustinMICROALBUMIN, [id number] 00:00:00* Test Item Value Reference Range Interpretation Comme nts ALBUMIN, URINE, RANDOM (test code = 32659) TEST NOT PERFORMED MG/DL Yuri F AustinMICROALBUMIN, [id number] 00:00:00* Test Item Value Reference Range Interpretation Comme mitul ALBUMIN, URINE, RANDOM (test code = 70474) TEST NOT PERFORMED MG/DL Yuri KleinMICROALBUMIN, [id number] 00:00:00* Test Item Value Reference Range Interpretation Comme nts ALBUMIN, URINE, RANDOM (test code = 32482) TEST NOT PERFORMED MG/DL Yuri Beverly AustinMICROALBUMIN, [id number] 00:00:00* Test Item Value Reference Range Interpretation Comme nts ALBUMIN, URINE, RANDOM (test code = 21799) TEST NOT PERFORMED MG/DL Yuri KleinCOMPREHENSIVE METABOLIC [id number] 00:00:00* Test Item Value Reference Range Interpretation Comme nts GLUCOSE (test code = 2217) 133 MG/DL BUN (test code = 2208) 15 MG/DL CREATININE (test code = 2214) 0.83 MG/DL eGFR AMER. (test cod e = 38333) 124 ML/MIN/1.73 eGFR NON- AMER. (test code = 41405) 107 ML/MIN/1.73 CALC BUN/CREAT (test code = [...] code = 2219) 42 U/L Yuri KleinLIPID [id number] 00:00:00* Test Item Value Reference Range Interpretation Comme nts CHOLESTEROL (test code = 2210) 278 MG/DL TRIGLYCERIDES (test code = 2232) 147 MG/DL HDL CHOLESTEROL (test code = 2220) 41 MG/DL CALC LDL CHOL (test code = 2237) 206 MG/DL RISK RATIO LDL/HDL (test cod e = 2238) 5.02 RATIO Yuri KleinCOMPREHENSIVE METABOLIC [id number] 00:00:00* Test Item Value Reference Range Interpretation Comme nts GLUCOSE (test code = 2217) 133 MG/DL BUN (test code = 2208) 15 MG/DL CREATININE (test code = 2214) 0.83 MG/DL eGFR AMER. (test cod e = 36793) 124 ML/MIN/1.73 eGFR NON- AMER. (test code = 67329) 107 ML/MIN/1.73 CALC BUN/CREAT (test code = [...] = 2219) 42 U/L Yuri Beverly AustinLIPID [id number] 00:00:00* Test Item Value Reference Range Interpretation Comme nts CHOLESTEROL (test code = 2210) 278 MG/DL TRIGLYCERIDES (test code = 2232) 147 MG/DL HDL CHOLESTEROL (test code = 2220) 41 MG/DL CALC LDL CHOL (test code = 2237) 206 MG/DL RISK RATIO LDL/HDL (test cod e = 2238) 5.02 RATIO Yuri Beverly AustinCOMPREHENSIVE METABOLIC [id number] 00:00:00* Test Item Value Reference Range Interpretation Comme nts GLUCOSE (test code = 2217) 133 MG/DL BUN (test code = 2208) 15 MG/DL CREATININE (test code = 2214) 0.83 MG/DL eGFR AMER. (test cod e = 07696) 124 ML/MIN/1.73 eGFR NON- AMER. (test code = 87112) 107 ML/MIN/1.73 CALC BUN/CREAT (test code = [...] code = 2219) 42 U/L Yuri Siria MontreatLIPID [id number] 00:00:00* Test Item Value Reference Range Interpretation Comme nts CHOLESTEROL (test code = 2210) 278 MG/DL TRIGLYCERIDES (test code = 2232) 147 MG/DL HDL CHOLESTEROL (test code = 2220) 41 MG/DL CALC LDL CHOL (test code = 2237) 206 MG/DL RISK RATIO LDL/HDL (test cod e = 2238) 5.02 RATIO Yuri Beverly MontreatCOMPREHENSIVE METABOLIC [id number] 00:00:00* Test Item Value Reference Range Interpretation Comme nts GLUCOSE (test code = 2217) 133 MG/DL BUN (test code = 2208) 15 MG/DL CREATININE (test code = 2214) 0.83 MG/DL eGFR AMER. (test cod e = 75019) 124 ML/MIN/1.73 eGFR NON- AMER. (test code = 92309) 107 ML/MIN/1.73 CALC BUN/CREAT (test code = [...] code = 2219) 42 U/L Yuri KleinLIPID [id number] 00:00:00* Test Item Value Reference Range Interpretation Comme nts CHOLESTEROL (test code = 2210) 278 MG/DL TRIGLYCERIDES (test code = 2232) 147 MG/DL HDL CHOLESTEROL (test code = 2220) 41 MG/DL CALC LDL CHOL (test code = 2237) 206 MG/DL RISK RATIO LDL/HDL (test cod e = 2238) 5.02 RATIO Yuri KleinCOMPREHENSIVE METABOLIC [id number] 00:00:00* Test Item Value Reference Range Interpretation Comme nts GLUCOSE (test code = 2217) 133 MG/DL BUN (test code = 2208) 15 MG/DL CREATININE (test code = 2214) 0.83 MG/DL eGFR AMER. (test cod e = 36098) 124 ML/MIN/1.73 eGFR NON- AMER. (test code = 22067) 107 ML/MIN/1.73 CALC BUN/CREAT (test code = [...] code = 2219) 42 U/L Yuri KleinLIPID [id number] 00:00:00* Test Item Value Reference Range Interpretation Comme nts CHOLESTEROL (test code = 2210) 278 MG/DL TRIGLYCERIDES (test code = 2232) 147 MG/DL HDL CHOLESTEROL (test code = 2220) 41 MG/DL CALC LDL CHOL (test code = 2237) 206 MG/DL RISK RATIO LDL/HDL (test cod e = 2238) 5.02 RATIO Yuri KleinCOMPREHENSIVE METABOLIC [id number] 00:00:00* Test Item Value Reference Range Interpretation Comme nts GLUCOSE (test code = 2217) 133 MG/DL BUN (test code = 2208) 15 MG/DL CREATININE (test code = 2214) 0.83 MG/DL eGFR AMER. (test cod e = 86845) 124 ML/MIN/1.73 eGFR NON- AMER. (test code = 16140) 107 ML/MIN/1.73 CALC BUN/CREAT (test code = [...] = 2219) 42 U/L Yuri Beverly AustinLIPID [id number] 00:00:00* Test Item Value Reference Range Interpretation Comme nts CHOLESTEROL (test code = 2210) 278 MG/DL TRIGLYCERIDES (test code = 2232) 147 MG/DL HDL CHOLESTEROL (test code = 2220) 41 MG/DL CALC LDL CHOL (test code = 2237) 206 MG/DL RISK RATIO LDL/HDL (test cod e = 2238) 5.02 RATIO Yuri Beverly AustinHEMOGLOBIN [id number] 00:00:00* Test Item Value Reference Range Interpretation Comme nts HEMOGLOBIN A1c (test code = 26406) 6.4 % Yuri Beverly AustinHEMOGLOBIN [id number] 00:00:00* Test Item Value Reference Range Interpretation Comme nts HEMOGLOBIN A1c (test code = 61328) 6.4 % Yuri Beverly AustinHEMOGLOBIN [id number] 00:00:00* Test Item Value Reference Range Interpretation Comme nts HEMOGLOBIN A1c (test code = 61064) 6.4 % Yuri Beverly AustinHEMOGLOBIN [id number] 00:00:00* Test Item Value Reference Range Interpretation Comme nts HEMOGLOBIN A1c (test code = 62986) 6.4 % Yuri Beverly AustinHEMOGLOBIN [id number] 00:00:00* Test Item Value Reference Range Interpretation Comme nts HEMOGLOBIN A1c (test code = 30391) 6.4 % Yuri Beverly AustinHEMOGLOBIN [id number] 00:00:00* Test Item Value Reference Range Interpretation Comme nts HEMOGLOBIN A1c (test code = 43255) 6.4 % Yuri Beverly AustinHEMOGLOBIN [id number] 00:00:00* Test Item Value Reference Range Interpretation Comme nts HEMOGLOBIN A1c (test code = 80109) 7.0 % Yuri Beverly AustinHEMOGLOBIN [id number] 00:00:00* Test Item Value Reference Range Interpretation Comme nts HEMOGLOBIN A1c (test code = 09978) 7.0 % Yuri Beverly AustinHEMOGLOBIN [id number] 00:00:00* Test Item Value Reference Range Interpretation Comme nts HEMOGLOBIN A1c (test code = 31674) 7.0 % Yuri Beverly AustinHEMOGLOBIN [id number] 00:00:00* Test Item Value Reference Range Interpretation Comme nts HEMOGLOBIN A1c (test code = 46988) 7.0 % Yuri Beverly AustinHEMOGLOBIN [id number] 00:00:00* Test Item Value Reference Range Interpretation Comme nts HEMOGLOBIN A1c (test code = 09968) 7.0 % Yuri KleinHEMOGLOBIN [id number] 00:00:00* Test Item Value Reference Range Interpretation Comme mitul HEMOGLOBIN A1c (test code = 45129) 7.0 % Yuri KleinCOMPREHENSIVE METABOLIC [id number] 00:00:00* Test Item Value Reference Range Interpretation Comme nts GLUCOSE (test code = 2217) 145 MG/DL BUN (test code = 2208) 11 MG/DL CREATININE (test code = 2214) 0.79 MG/DL eGFR AMER. (test cod e = 16513) 128 ML/MIN/1.73 eGFR NON- AMER. (test code = 05972) 111 ML/MIN/1.73 CALC BUN/CREAT (test code = [...] = 2219) 83 U/L Yuri Beverly AustinLIPID [id number] 00:00:00* Test Item Value Reference Range Interpretation Comme nts CHOLESTEROL (test code = 2210) 267 MG/DL TRIGLYCERIDES (test code = 2232) 254 MG/DL HDL CHOLESTEROL (test code = 2220) 40 MG/DL CALC LDL CHOL (test code = 2237) 176 MG/DL RISK RATIO LDL/HDL (test cod e = 2238) 4.41 RATIO Yuri KleinHEMOGLOBIN [id number] 00:00:00* Test Item Value Reference Range Interpretation Comme mitul HEMOGLOBIN A1c (test code = 58464) 6.5 % Yuri Beverly MontreatCBC W/AUTO [id number] 00:00:00* Test Item Value Reference Range Interpretation [...] = 1015) 171 K/UL Yuri KleinCOMPREHENSIVE METABOLIC [id number] 00:00:00* Test Item Value Reference Range Interpretation Comme nts GLUCOSE (test code = 2217) 145 MG/DL BUN (test code = 2208) 11 MG/DL CREATININE (test code = 2214) 0.79 MG/DL eGFR AMER. (test cod e = 61877) 128 ML/MIN/1.73 eGFR NON- AMER. (test code = 98215) 111 ML/MIN/1.73 CALC BUN/CREAT (test code = [...] code = 2219) 83 U/L Yuri KleinLIPID [id number] 00:00:00* Test Item Value Reference Range Interpretation Comme nts CHOLESTEROL (test code = 2210) 267 MG/DL TRIGLYCERIDES (test code = 2232) 254 MG/DL HDL CHOLESTEROL (test code = 2220) 40 MG/DL CALC LDL CHOL (test code = 2237) 176 MG/DL RISK RATIO LDL/HDL (test cod e = 2238) 4.41 RATIO Yuri KleinHEMOGLOBIN [id number] 00:00:00* Test Item Value Reference Range Interpretation Comme nts HEMOGLOBIN A1c (test code = 14253) 6.5 % Yuri KleinCBC W/AUTO [id number] 00:00:00* Test Item Value Reference Range Interpretation [...] = 1015) 171 K/UL Yuri KleinCOMPREHENSIVE METABOLIC [id number] 00:00:00* Test Item Value Reference Range Interpretation Comme nts GLUCOSE (test code = 2217) 145 MG/DL BUN (test code = 2208) 11 MG/DL CREATININE (test code = 2214) 0.79 MG/DL eGFR AMER. (test cod e = 65144) 128 ML/MIN/1.73 eGFR NON- AMER. (test code = 36683) 111 ML/MIN/1.73 CALC BUN/CREAT (test code = [...] code = 2219) 83 U/L Yuri KleinLIPID [id number] 00:00:00* Test Item Value Reference Range Interpretation Comme nts CHOLESTEROL (test code = 2210) 267 MG/DL TRIGLYCERIDES (test code = 2232) 254 MG/DL HDL CHOLESTEROL (test code = 2220) 40 MG/DL CALC LDL CHOL (test code = 2237) 176 MG/DL RISK RATIO LDL/HDL (test cod e = 2238) 4.41 RATIO Yuri KleinHEMOGLOBIN [id number] 00:00:00* Test Item Value Reference Range Interpretation Comme nts HEMOGLOBIN A1c (test code = 92634) 6.5 % Yuri KleinCBC W/AUTO [id number] 00:00:00* Test Item Value Reference Range Interpretation [...] 1015) 171 K/UL Yuri Beverly ErnieCOMPREHENSIVE METABOLIC [id number] 00:00:00* Test Item Value Reference Range Interpretation Comme nts GLUCOSE (test code = 2217) 145 MG/DL BUN (test code = 2208) 11 MG/DL CREATININE (test code = 2214) 0.79 MG/DL eGFR AMER. (test cod e = 10385) 128 ML/MIN/1.73 eGFR NON- AMER. (test code = 18607) 111 ML/MIN/1.73 CALC BUN/CREAT (test code = [...] code = 2219) 83 U/L Yuri KleinLIPID [id number] 00:00:00* Test Item Value Reference Range Interpretation Comme nts CHOLESTEROL (test code = 2210) 267 MG/DL TRIGLYCERIDES (test code = 2232) 254 MG/DL HDL CHOLESTEROL (test code = 2220) 40 MG/DL CALC LDL CHOL (test code = 2237) 176 MG/DL RISK RATIO LDL/HDL (test cod e = 2238) 4.41 RATIO Yuri KleinHEMOGLOBIN [id number] 00:00:00* Test Item Value Reference Range Interpretation Comme nts HEMOGLOBIN A1c (test code = 85474) 6.5 % Yuri Beverly ErnieCBC W/AUTO [id number] 00:00:00* Test Item Value Reference Range Interpretation [...] = 1015) 171 K/UL Yuri KleinCOMPREHENSIVE METABOLIC [id number] 00:00:00* Test Item Value Reference Range Interpretation Comme nts GLUCOSE (test code = 2217) 145 MG/DL BUN (test code = 2208) 11 MG/DL CREATININE (test code = 2214) 0.79 MG/DL eGFR AMER. (test cod e = 87542) 128 ML/MIN/1.73 eGFR NON- AMER. (test code = 50936) 111 ML/MIN/1.73 CALC BUN/CREAT (test code = [...] = 2219) 83 U/L Yuri Beverly AustinLIPID [id number] 00:00:00* Test Item Value Reference Range Interpretation Comme nts CHOLESTEROL (test code = 2210) 267 MG/DL TRIGLYCERIDES (test code = 2232) 254 MG/DL HDL CHOLESTEROL (test code = 2220) 40 MG/DL CALC LDL CHOL (test code = 2237) 176 MG/DL RISK RATIO LDL/HDL (test cod e = 2238) 4.41 RATIO Yuri KleinHEMOGLOBIN [id number] 00:00:00* Test Item Value Reference Range Interpretation Comme nts HEMOGLOBIN A1c (test code = 10617) 6.5 % Yuri KleinCBC W/AUTO [id number] 00:00:00* Test Item Value Reference Range Interpretation [...] = 1015) 171 K/UL Yuri KleinCOMPREHENSIVE METABOLIC [id number] 00:00:00* Test Item Value Reference Range Interpretation Comme nts GLUCOSE (test code = 2217) 145 MG/DL BUN (test code = 2208) 11 MG/DL CREATININE (test code = 2214) 0.79 MG/DL eGFR AMER. (test cod e = 50199) 128 ML/MIN/1.73 eGFR NON- AMER. (test code = 21409) 111 ML/MIN/1.73 CALC BUN/CREAT (test code = [...] = 2219) 83 U/L Yuri Beverly ErnieLIPID [id number] 00:00:00* Test Item Value Reference Range Interpretation Comme nts CHOLESTEROL (test code = 2210) 267 MG/DL TRIGLYCERIDES (test code = 2232) 254 MG/DL HDL CHOLESTEROL (test code = 2220) 40 MG/DL CALC LDL CHOL (test code = 2237) 176 MG/DL RISK RATIO LDL/HDL (test cod e = 2238) 4.41 RATIO Yuri Beverly ErnieHEMOGLOBIN [id number] 00:00:00* Test Item Value Reference Range Interpretation Comme nts HEMOGLOBIN A1c (test code = 37886) 6.5 % Yuri Beverly ErnieCBC W/AUTO [id number] 00:00:00* Test Item Value Reference Range Interpretation [...] Yuri Siria Scarlett (ANTI-NUCLEAR AB) WITH REFLEX [id number] 00:00:00* Test Item Value Reference Range Interpretation Comme nts ANTI-NUCLEAR ANTIBODIES (bev t code = 3506) NEGATIVE Yuri Pantoja (ANTI-NUCLEAR AB) WITH REFLEX [id number] 00:00:00* Test Item Value Reference Range Interpretation Comme nts ANTI-NUCLEAR ANTIBODIES (bev t code = 3506) NEGATIVE Yuri Beverly AustinANA (ANTI-NUCLEAR AB) WITH REFLEX [id number] 00:00:00* Test Item Value Reference Range Interpretation Comme nts ANTI-NUCLEAR ANTIBODIES (bev t code = 3506) NEGATIVE Yuri F AustinANA (ANTI-NUCLEAR AB) WITH REFLEX [id number] 00:00:00* Test Item Value Reference Range Interpretation Comme nts ANTI-NUCLEAR ANTIBODIES (bev t code = 3506) NEGATIVE Yuri F AustinANA (ANTI-NUCLEAR AB) WITH REFLEX [id number] 00:00:00* Test Item Value Reference Range Interpretation Comme nts ANTI-NUCLEAR ANTIBODIES (bev t code = 3506) NEGATIVE Yuri Beverly AustinANA (ANTI-NUCLEAR AB) WITH REFLEX [id number] 00:00:00* Test Item Value Reference Range Interpretation Comme nts ANTI-NUCLEAR ANTIBODIES (bev t code = 3506) NEGATIVE Yuri [id number] 00:00:00* Test Item Value Reference Range Interpretation Comme nts TSH (test code = 2821) 2.39 UIU/ML Yuri KleinRHEUMATOID FACTOR, [id number] 00:00:00* Test Item Value Reference Range Interpretation Comme nts RHEUMATOID FACTOR, QUANT (te st code = 3502) <10 IU/ML Yuri [id number] 00:00:00* Test Item Value Reference Range Interpretation Comme nts TESTOSTERONE (test code = 2830) 394 NG/DL Yuri KleinPSA, [id number] 00:00:00* Test Item Value Reference Range Interpretation Comme nts PSA, TOTAL (test code = 2606) 0.54 NG/ML Yuri KleinCOMPREHENSIVE METABOLIC [id number] 00:00:00* Test Item Value Reference Range Interpretation Comme nts GLUCOSE (test code = 2217) 123 MG/DL BUN (test code = 2208) 15 MG/DL CREATININE (test code = 2214) 1.02 MG/DL eGFR AMER. (test cod e = 89357) 105 ML/MIN/1.73 eGFR NON- AMER. (test code = 42723) 91 ML/MIN/1.73 CALC BUN/CREAT (test code = [...] code = 2219) 41 U/L Yuri KleinLIPID [id number] 00:00:00* Test Item Value Reference Range Interpretation Comme nts CHOLESTEROL (test code = 2210) 265 MG/DL TRIGLYCERIDES (test code = 2232) 541 MG/DL HDL CHOLESTEROL (test code = 2220) 36 MG/DL CALC LDL CHOL (test code = 2237) NOTE MG/DL RISK RATIO LDL/HDL (test cod e = 2238) (NOTE) RATIO Yuri [id number] 00:00:00* Test Item Value Reference Range Interpretation Comme nts TSH (test code = 2821) 2.39 UIU/ML Yuri KleinRHEUMATOID FACTOR, [id number] 00:00:00* Test Item Value Reference Range Interpretation Comme nts RHEUMATOID FACTOR, QUANT (te st code = 3502) <10 IU/ML Yuri [id number] 00:00:00* Test Item Value Reference Range Interpretation Comme nts TESTOSTERONE (test code = 2830) 394 NG/DL Yuri KleinPSA, [id number] 00:00:00* Test Item Value Reference Range Interpretation Comme nts PSA, TOTAL (test code = 2606) 0.54 NG/ML Yuri KleinCOMPREHENSIVE METABOLIC [id number] 00:00:00* Test Item Value Reference Range Interpretation Comme nts GLUCOSE (test code = 2217) 123 MG/DL BUN (test code = 2208) 15 MG/DL CREATININE (test code = 2214) 1.02 MG/DL eGFR AMER. (test cod e = 00946) 105 ML/MIN/1.73 eGFR NON- AMER. (test code = 16653) 91 ML/MIN/1.73 CALC BUN/CREAT (test code = [...] code = 2219) 41 U/L Yuri KleinLIPID [id number] 00:00:00* Test Item Value Reference Range Interpretation Comme nts CHOLESTEROL (test code = 2210) 265 MG/DL TRIGLYCERIDES (test code = 2232) 541 MG/DL HDL CHOLESTEROL (test code = 2220) 36 MG/DL CALC LDL CHOL (test code = 2237) NOTE MG/DL RISK RATIO LDL/HDL (test cod e = 2238) (NOTE) RATIO Yuri Beverly [id number] 00:00:00* Test Item Value Reference Range Interpretation Comme nts TSH (test code = 2821) 2.39 UIU/ML Yuri KleinRHEUMATOID FACTOR, [id number] 00:00:00* Test Item Value Reference Range Interpretation Comme nts RHEUMATOID FACTOR, QUANT (te st code = 3502) <10 IU/ML Yuri Beverly [id number] 00:00:00* Test Item Value Reference Range Interpretation Comme nts TESTOSTERONE (test code = 2830) 394 NG/DL Yuri KleinPSA, [id number] 00:00:00* Test Item Value Reference Range Interpretation Comme nts PSA, TOTAL (test code = 2606) 0.54 NG/ML Yuri KleinCOMPREHENSIVE METABOLIC [id number] 00:00:00* Test Item Value Reference Range Interpretation Comme nts GLUCOSE (test code = 2217) 123 MG/DL BUN (test code = 2208) 15 MG/DL CREATININE (test code = 2214) 1.02 MG/DL eGFR AMER. (test cod e = 81652) 105 ML/MIN/1.73 eGFR NON- AMER. (test code = 76462) 91 ML/MIN/1.73 CALC BUN/CREAT (test code = [...] code = 2219) 41 U/L Yuri KleinLIPID [id number] 00:00:00* Test Item Value Reference Range Interpretation Comme nts CHOLESTEROL (test code = 2210) 265 MG/DL TRIGLYCERIDES (test code = 2232) 541 MG/DL HDL CHOLESTEROL (test code = 2220) 36 MG/DL CALC LDL CHOL (test code = 2237) NOTE MG/DL RISK RATIO LDL/HDL (test cod e = 2238) (NOTE) RATIO Yuri [id number] 00:00:00* Test Item Value Reference Range Interpretation Comme nts TSH (test code = 2821) 2.39 UIU/ML Yuri KleinRHEUMATOID FACTOR, [id number] 00:00:00* Test Item Value Reference Range Interpretation Comme nts RHEUMATOID FACTOR, QUANT (te st code = 3502) <10 IU/ML Yuri [id number] 00:00:00* Test Item Value Reference Range Interpretation Comme nts TESTOSTERONE (test code = 2830) 394 NG/DL Yuri KleinPSA, [id number] 00:00:00* Test Item Value Reference Range Interpretation Comme nts PSA, TOTAL (test code = 2606) 0.54 NG/ML Yuri KleinCOMPREHENSIVE METABOLIC [id number] 00:00:00* Test Item Value Reference Range Interpretation Comme nts GLUCOSE (test code = 2217) 123 MG/DL BUN (test code = 2208) 15 MG/DL CREATININE (test code = 2214) 1.02 MG/DL eGFR AMER. (test cod e = 77712) 105 ML/MIN/1.73 eGFR NON- AMER. (test code = 80953) 91 ML/MIN/1.73 CALC BUN/CREAT (test code = [...] code = 2219) 41 U/L Yuri KleinLIPID [id number] 00:00:00* Test Item Value Reference Range Interpretation Comme nts CHOLESTEROL (test code = 2210) 265 MG/DL TRIGLYCERIDES (test code = 2232) 541 MG/DL HDL CHOLESTEROL (test code = 2220) 36 MG/DL CALC LDL CHOL (test code = 2237) NOTE MG/DL RISK RATIO LDL/HDL (test cod e = 2238) (NOTE) RATIO Yuri [id number] 00:00:00* Test Item Value Reference Range Interpretation Comme nts TSH (test code = 2821) 2.39 UIU/ML Yuri KleinRHEUMATOID FACTOR, [id number] 00:00:00* Test Item Value Reference Range Interpretation Comme nts RHEUMATOID FACTOR, QUANT (te st code = 3502) <10 IU/ML Yuri K[id number] 00:00:00* Test Item Value Reference Range Interpretation Comme nts TESTOSTERONE (test code = 2830) 394 NG/DL Yuri KleinPSA, [id number] 00:00:00* Test Item Value Reference Range Interpretation Comme nts PSA, TOTAL (test code = 2606) 0.54 NG/ML Yuri KleinCOMPREHENSIVE METABOLIC [id number] 00:00:00* Test Item Value Reference Range Interpretation Comme nts GLUCOSE (test code = 2217) 123 MG/DL BUN (test code = 2208) 15 MG/DL CREATININE (test code = 2214) 1.02 MG/DL eGFR AMER. (test cod e = 65705) 105 ML/MIN/1.73 eGFR NON- AMER. (test code = 33142) 91 ML/MIN/1.73 CALC BUN/CREAT (test code = [...] code = 2219) 41 U/L Yuri KleinLIPID [id number] 00:00:00* Test Item Value Reference Range Interpretation Comme nts CHOLESTEROL (test code = 2210) 265 MG/DL TRIGLYCERIDES (test code = 2232) 541 MG/DL HDL CHOLESTEROL (test code = 2220) 36 MG/DL CALC LDL CHOL (test code = 2237) NOTE MG/DL RISK RATIO LDL/HDL (test cod e = 2238) (NOTE) RATIO Yuri Beverly [id number] 00:00:00* Test Item Value Reference Range Interpretation Comme nts TSH (test code = 2821) 2.39 UIU/ML Yuri KleinRHEUMATOID FACTOR, [id number] 00:00:00* Test Item Value Reference Range Interpretation Comme nts RHEUMATOID FACTOR, QUANT (te st code = 3502) <10 IU/ML Yuri [id number] 00:00:00* Test Item Value Reference Range Interpretation Comme nts TESTOSTERONE (test code = 2830) 394 NG/DL Yuri KleinPSA, [id number] 00:00:00* Test Item Value Reference Range Interpretation Comme nts PSA, TOTAL (test code = 2606) 0.54 NG/ML Yuri KleinCOMPREHENSIVE METABOLIC [id number] 00:00:00* Test Item Value Reference Range Interpretation Comme nts GLUCOSE (test code = 2217) 123 MG/DL BUN (test code = 2208) 15 MG/DL CREATININE (test code = 2214) 1.02 MG/DL eGFR AMER. (test cod e = 06329) 105 ML/MIN/1.73 eGFR NON- AMER. (test code = 62590) 91 ML/MIN/1.73 CALC BUN/CREAT (test code = [...] code = 2219) 41 U/L Yuri KleinLIPID [id number] 00:00:00* Test Item Value Reference Range Interpretation Comme nts CHOLESTEROL (test code = 2210) 265 MG/DL TRIGLYCERIDES (test code = 2232) 541 MG/DL HDL CHOLESTEROL (test code = 2220) 36 MG/DL CALC LDL CHOL (test code = 2237) NOTE MG/DL RISK RATIO LDL/HDL (test cod e = 2238) (NOTE) RATIO Yuri KleinHEMOGLOBIN [id number] 00:00:00* Test Item Value Reference Range Interpretation Comme nts HEMOGLOBIN A1c (test code = 07829) 5.8 % Yuri KleinSEDIMENTATION [id number] 00:00:00* Test Item Value Reference Range Interpretation Comme nts SEDIMENTATION RATE (test cod e = 1017) 3 MM/HOUR Yuri KleinCBC W/AUTO [id number] 00:00:00* Test Item Value Reference Range Interpretation [...] = 1015) 195 K/UL Yuri F AustinHEMOGLOBIN [id number] 00:00:00* Test Item Value Reference Range Interpretation Comme nts HEMOGLOBIN A1c (test code = 80438) 5.8 % Yuri Beverly AustinSEDIMENTATION [id number] 00:00:00* Test Item Value Reference Range Interpretation Comme nts SEDIMENTATION RATE (test cod e = 1017) 3 MM/HOUR Yuri Beverly AustinCBC W/AUTO [id number] 00:00:00* Test Item Value Reference Range Interpretation [...] code = 1015) 195 K/UL Yuri KleinHEMOGLOBIN [id number] 00:00:00* Test Item Value Reference Range Interpretation Comme nts HEMOGLOBIN A1c (test code = 39110) 5.8 % Yuri Beverly AustinSEDIMENTATION [id number] 00:00:00* Test Item Value Reference Range Interpretation Comme nts SEDIMENTATION RATE (test cod e = 1017) 3 MM/HOUR Yuri Beverly AustinCBC W/AUTO [id number] 00:00:00* Test Item Value Reference Range Interpretation [...] = 1015) 195 K/UL Yuri Beverly AustinHEMOGLOBIN [id number] 00:00:00* Test Item Value Reference Range Interpretation Comme nts HEMOGLOBIN A1c (test code = 81868) 5.8 % Yuri Beverly AustinSEDIMENTATION [id number] 00:00:00* Test Item Value Reference Range Interpretation Comme nts SEDIMENTATION RATE (test cod e = 1017) 3 MM/HOUR Yuri Beverly AustinCBC W/AUTO [id number] 00:00:00* Test Item Value Reference Range Interpretation [...] = 1015) 195 K/UL Yuri Beverly AustinHEMOGLOBIN [id number] 00:00:00* Test Item Value Reference Range Interpretation Comme nts HEMOGLOBIN A1c (test code = 74333) 5.8 % Yuri Beverly AustinSEDIMENTATION [id number] 00:00:00* Test Item Value Reference Range Interpretation Comme nts SEDIMENTATION RATE (test cod e = 1017) 3 MM/HOUR Yuri Beverly AustinCBC W/AUTO [id number] 00:00:00* Test Item Value Reference Range Interpretation [...] = 1015) 195 K/UL Yuri Beverly AustinHEMOGLOBIN [id number] 00:00:00* Test Item Value Reference Range Interpretation Comme nts HEMOGLOBIN A1c (test code = 18067) 5.8 % Yuri Beverly AustinSEDIMENTATION [id number] 00:00:00* Test Item Value Reference Range Interpretation Comme nts SEDIMENTATION RATE (test cod e = 1017) 3 MM/HOUR Yuri Beverly MontreatCBC W/AUTO [id number] 00:00:00* Test Item Value Reference Range Interpretation [...] 1015) 195 K/UL Yuri Beverly ErnieCORTISOL, A.M. [id number] 00:00:00* Test Item Value Reference Range Interpretation Comme nts CORTISOL, A.M. SPECIMEN (bev t code = 4267) 11 UG/DL Yuri F [id number] 00:00:00* Test Item Value Reference Range Interpretation Comme nts MAGNESIUM (test code = 2226) 1.9 MG/DL Yuri F AustinCORTISOL, P.M. [id number] 00:00:00* Test Item Value Reference Range Interpretation Comme nts CORTISOL, P.M. SPECIMEN (bev t code = 4269) 7 UG/DL Yuri F AustinCORTISOL, A.M. [id number] 00:00:00* Test Item Value Reference Range Interpretation Comme nts CORTISOL, A.M. SPECIMEN (bev t code = 4267) 11 UG/DL Yuri F [id number] 00:00:00* Test Item Value Reference Range Interpretation Comme nts MAGNESIUM (test code = 2226) 1.9 MG/DL Yuri F AustinCORTISOL, P.M. [id number] 00:00:00* Test Item Value Reference Range Interpretation Comme nts CORTISOL, P.M. SPECIMEN (bev t code = 4269) 7 UG/DL Yuri F AustinCORTISOL, A.M. [id number] 00:00:00* Test Item Value Reference Range Interpretation Comme nts CORTISOL, A.M. SPECIMEN (bev t code = 4267) 11 UG/DL Yuri F [id number] 00:00:00* Test Item Value Reference Range Interpretation Comme nts MAGNESIUM (test code = 2226) 1.9 MG/DL Yuri F AustinCORTISOL, P.M. [id number] 00:00:00* Test Item Value Reference Range Interpretation Comme nts CORTISOL, P.M. SPECIMEN (bev t code = 4269) 7 UG/DL Yuri F AustinCORTISOL, A.M. [id number] 00:00:00* Test Item Value Reference Range Interpretation Comme nts CORTISOL, A.M. SPECIMEN (bev t code = 4267) 11 UG/DL Yuri F [id number] 00:00:00* Test Item Value Reference Range Interpretation Comme nts MAGNESIUM (test code = 2226) 1.9 MG/DL Yuri F AustinCORTISOL, P.M. [id number] 00:00:00* Test Item Value Reference Range Interpretation Comme nts CORTISOL, P.M. SPECIMEN (bev t code = 4269) 7 UG/DL Yuri Beverly AustinCORTISOL, A.M. [id number] 00:00:00* Test Item Value Reference Range Interpretation Comme nts CORTISOL, A.M. SPECIMEN (bev t code = 4267) 11 UG/DL Yuri Beverly [id number] 00:00:00* Test Item Value Reference Range Interpretation Comme nts MAGNESIUM (test code = 2226) 1.9 MG/DL Yuri Beverly AustinCORTISOL, P.M. [id number] 00:00:00* Test Item Value Reference Range Interpretation Comme nts CORTISOL, P.M. SPECIMEN (bev t code = 4269) 7 UG/DL Yuri Beverly AustinCORTISOL, A.M. [id number] 00:00:00* Test Item Value Reference Range Interpretation Comme nts CORTISOL, A.M. SPECIMEN (bev t code = 4267) 11 UG/DL Yuri Beverly [id number] 00:00:00* Test Item Value Reference Range Interpretation Comme nts MAGNESIUM (test code = 2226) 1.9 MG/DL Yuri Beverly AustinCORTISOL, P.M. [id number] 00:00:00* Test Item Value Reference Range Interpretation Comme nts CORTISOL, P.M. SPECIMEN (bev t code = 4269) 7 UG/DL Yuri Beverly [id number] 00:00:00* Test Item Value Reference Range Interpretation Comme nts TESTOSTERONE (test code = 2830) 430 NG/DL TESTOSTERONE REF RANGE (test code = 82889) SEE ABOVE Yuri F [id number] 00:00:00* Test Item Value Reference Range Interpretation Comme nts TESTOSTERONE (test code = 2830) 430 NG/DL TESTOSTERONE REF RANGE (test code = 90743) SEE ABOVE Yuri F [id number] 00:00:00* Test Item Value Reference Range Interpretation Comme nts TESTOSTERONE (test code = 2830) 430 NG/DL TESTOSTERONE REF RANGE (test code = 46556) SEE ABOVE Yuri F [id number] 00:00:00* Test Item Value Reference Range Interpretation Comme nts TESTOSTERONE (test code = 2830) 430 NG/DL TESTOSTERONE REF RANGE (test code = 67263) SEE ABOVE Yuri Beverly [id number] 00:00:00* Test Item Value Reference Range Interpretation Comme nts TESTOSTERONE (test code = 2830) 430 NG/DL TESTOSTERONE REF RANGE (test code = 64737) SEE ABOVE Yuri Beverly [id number] 00:00:00* Test Item Value Reference Range Interpretation Comme nts TESTOSTERONE (test code = 2830) 430 NG/DL TESTOSTERONE REF RANGE (test code = 74900) SEE ABOVE Yuri Beverly [id number] 00:00:00* Test Item Value Reference Range Interpretation Comme nts PROLACTIN (test code = 2800) 5.0 NG/ML Yuri Beverly AustinPSA, FREE AND [id number] 00:00:00* Test Item Value Reference Range Interpretation Comme nts PROSTATIC SPECIFIC AG (test code = 653917) 0.7 NG/ML FREE PSA (test code = 694238) 0.34 NG/ML % FREE PSA (test code = 198269) 49 % Yuri Beverly AustinFOLLICLE STIM [id number] 00:00:00* Test Item Value Reference Range Interpretation Comme nts FOLLICLE STIM HORMONE (test code = 2700) 2.4 MIU/ML FSH INTERPRETATION: (test co de = 32426) (NOTE) Yuri Beverly [id number] 00:00:00* Test Item Value Reference Range Interpretation Comme nts PROLACTIN (test code = 2800) 5.0 NG/ML Yuri Beverly AustinPSA, FREE AND [id number] 00:00:00* Test Item Value Reference Range Interpretation Comme nts PROSTATIC SPECIFIC AG (test code = 734664) 0.7 NG/ML FREE PSA (test code = 966489) 0.34 NG/ML % FREE PSA (test code = 997494) 49 % Yuri Beverly AustinFOLLICLE STIM [id number] 00:00:00* Test Item Value Reference Range Interpretation Comme nts FOLLICLE STIM HORMONE (test code = 2700) 2.4 MIU/ML FSH INTERPRETATION: (test co de = 88316) (NOTE) Yuri Beverly [id number] 00:00:00* Test Item Value Reference Range Interpretation Comme nts PROLACTIN (test code = 2800) 5.0 NG/ML Yuri Beverly AustinPSA, FREE AND [id number] 00:00:00* Test Item Value Reference Range Interpretation Comme nts PROSTATIC SPECIFIC AG (test code = 597978) 0.7 NG/ML FREE PSA (test code = 041409) 0.34 NG/ML % FREE PSA (test code = 709644) 49 % Yuri Beverly AustinFOLLICLE STIM [id number] 00:00:00* Test Item Value Reference Range Interpretation Comme nts FOLLICLE STIM HORMONE (test code = 2700) 2.4 MIU/ML FSH INTERPRETATION: (test co de = 67959) (NOTE) Yuri Beverly [id number] 00:00:00* Test Item Value Reference Range Interpretation Comme nts PROLACTIN (test code = 2800) 5.0 NG/ML Yuri Beverly AustinPSA, FREE AND [id number] 00:00:00* Test Item Value Reference Range Interpretation Comme nts PROSTATIC SPECIFIC AG (test code = 548826) 0.7 NG/ML FREE PSA (test code = 398428) 0.34 NG/ML % FREE PSA (test code = 533596) 49 % Yuri Beverly AustinFOLLICLE STIM [id number] 00:00:00* Test Item Value Reference Range Interpretation Comme nts FOLLICLE STIM HORMONE (test code = 2700) 2.4 MIU/ML FSH INTERPRETATION: (test co de = 44841) (NOTE) Yuri Beverly [id number] 00:00:00* Test Item Value Reference Range Interpretation Comme nts PROLACTIN (test code = 2800) 5.0 NG/ML Yuri Beverly AustinPSA, FREE AND [id number] 00:00:00* Test Item Value Reference Range Interpretation Comme nts PROSTATIC SPECIFIC AG (test code = 419893) 0.7 NG/ML FREE PSA (test code = 118241) 0.34 NG/ML % FREE PSA (test code = 833429) 49 % Yuri Beverly AustinFOLLICLE STIM [id number] 00:00:00* Test Item Value Reference Range Interpretation Comme nts FOLLICLE STIM HORMONE (test code = 2700) 2.4 MIU/ML FSH INTERPRETATION: (test co de = 21713) (NOTE) Yuri [id number] 00:00:00* Test Item Value Reference Range Interpretation Comme nts PROLACTIN (test code = 2800) 5.0 NG/ML Yuri KleinPSA, FREE AND [id number] 00:00:00* Test Item Value Reference Range Interpretation Comme nts PROSTATIC SPECIFIC AG (test code = 966459) 0.7 NG/ML FREE PSA (test code = 805719) 0.34 NG/ML % FREE PSA (test code = 507705) 49 % Yuri KleinFOLLICLE STIM [id number] 00:00:00* Test Item Value Reference Range Interpretation Comme nts FOLLICLE STIM HORMONE (test code = 2700) 2.4 MIU/ML FSH INTERPRETATION: (test co de = 08879) (NOTE) Yuri KleinHEMOGLOBIN [id number] 00:00:00* Test Item Value Reference Range Interpretation Comme nts HEMOGLOBIN A1c (test code = 37920) 5.8 % Yuri KleinTHYROID II PROFILE (T3U, T4, T7, TSH)2015-04-23 00:00:00* Test Item Value Reference Range Interpretation Comme nts T3 UPTAKE (test code = 2817) 28.4 % T4 (THYROXINE) (test code = 2819) 7.5 UG/DL CALCULATED T7 (FTI) (test co de = 2820) 2.13 TSH (test code = 2821) 2.8 UIU/ML Yuri KleinCOMPREHENSIVE METABOLIC [id number] 00:00:00* Test Item Value Reference Range Interpretation Comme nts GLUCOSE (test code = 2217) 89 MG/DL BUN (test code = 2208) 13 MG/DL CREATININE (test code = 2214) 1.0 MG/DL eGFR AMER. (test cod e = 90349) 101 ML/MIN/1.73 eGFR NON- AMER. (test code = 69021) 83 ML/MIN/1.73 CALCULATED BUN/CREAT (test code = [...] code = 2219) 24 U/L Yuri KleinLIPID [id number] 00:00:00* Test Item Value Reference Range Interpretation Comme nts CHOLESTEROL (test code = 2210) 259 MG/DL TRIGLYCERIDES (test code = 2232) 176 MG/DL HDL CHOLESTEROL (test code = 2220) 48 MG/DL CALCULATED LDL CHOL (test co de = 2237) 176 MG/DL RISK RATIO LDL/HDL (test cod e = 2238) 3.66 RATIO Yuri KleinCBC W/AUTO [id number] 00:00:00* Test Item Value Reference Range Interpretation [...] code = 1015) 198 K/UL Yuri KleinHEMOGLOBIN [id number] 00:00:00* Test Item Value Reference Range Interpretation Comme nts HEMOGLOBIN A1c (test code = 00144) 5.8 % Yuri KleinTHYROID II PROFILE (T3U, T4, T7, TSH)2015-04-23 00:00:00* Test Item Value Reference Range Interpretation Comme nts T3 UPTAKE (test code = 2817) 28.4 % T4 (THYROXINE) (test code = 2819) 7.5 UG/DL CALCULATED T7 (FTI) (test co de = 2820) 2.13 TSH (test code = 2821) 2.8 UIU/ML Yuri KleinCOMPREHENSIVE METABOLIC [id number] 00:00:00* Test Item Value Reference Range Interpretation Comme nts GLUCOSE (test code = 2217) 89 MG/DL BUN (test code = 2208) 13 MG/DL CREATININE (test code = 2214) 1.0 MG/DL eGFR AMER. (test cod e = 90932) 101 ML/MIN/1.73 eGFR NON- AMER. (test code = 83505) 83 ML/MIN/1.73 CALCULATED BUN/CREAT (test code = [...] code = 2219) 24 U/L Yuri KleinLIPID [id number] 00:00:00* Test Item Value Reference Range Interpretation Comme nts CHOLESTEROL (test code = 2210) 259 MG/DL TRIGLYCERIDES (test code = 2232) 176 MG/DL HDL CHOLESTEROL (test code = 2220) 48 MG/DL CALCULATED LDL CHOL (test co de = 2237) 176 MG/DL RISK RATIO LDL/HDL (test cod e = 2238) 3.66 RATIO Yuri KleinCBC W/AUTO [id number] 00:00:00* Test Item Value Reference Range Interpretation [...] code = 1015) 198 K/UL Yuri KleinHEMOGLOBIN [id number] 00:00:00* Test Item Value Reference Range Interpretation Comme [facility] HEMOGLOBIN A1c (test code = 28611) 5.8 % Yuri KleinTHYROID II PROFILE (T3U, T4, T7, TSH)2015-04-23 00:00:00* Test Item Value Reference Range Interpretation Comme [facility] T3 UPTAKE (test code = 2817) 28.4 % T4 (THYROXINE) (test code = 2819) 7.5 UG/DL CALCULATED T7 (FTI) (test co de = 2820) 2.13 TSH (test code = 2821) 2.8 UIU/ML Yuri Beverly ErnieCOMPREHENSIVE METABOLIC [id number] 00:00:00* Test Item Value Reference Range Interpretation Comme nts GLUCOSE (test code = 2217) 89 MG/DL BUN (test code = 2208) 13 MG/DL CREATININE (test code = 2214) 1.0 MG/DL eGFR AMER. (test cod e = 76047) 101 ML/MIN/1.73 eGFR NON- AMER. (test code = 92691) 83 ML/MIN/1.73 CALCULATED BUN/CREAT (test code = [...] code = 2219) 24 U/L Yuri KleinLIPID [id number] 00:00:00* Test Item Value Reference Range Interpretation Comme nts CHOLESTEROL (test code = 2210) 259 MG/DL TRIGLYCERIDES (test code = 2232) 176 MG/DL HDL CHOLESTEROL (test code = 2220) 48 MG/DL CALCULATED LDL CHOL (test co de = 2237) 176 MG/DL RISK RATIO LDL/HDL (test cod e = 2238) 3.66 RATIO Yuri KleinCBC W/AUTO [id number] 00:00:00* Test Item Value Reference Range Interpretation [...] code = 1015) 198 K/UL Yuri KleinHEMOGLOBIN [id number] 00:00:00* Test Item Value Reference Range Interpretation Comme nts HEMOGLOBIN A1c (test code = 59009) 5.8 % Yuri KleinTHYROID II PROFILE (T3U, T4, T7, TSH)2015-04-23 00:00:00* Test Item Value Reference Range Interpretation Comme nts T3 UPTAKE (test code = 2817) 28.4 % T4 (THYROXINE) (test code = 2819) 7.5 UG/DL CALCULATED T7 (FTI) (test co de = 2820) 2.13 TSH (test code = 2821) 2.8 UIU/ML Yuri KleinCOMPREHENSIVE METABOLIC [id number] 00:00:00* Test Item Value Reference Range Interpretation Comme nts GLUCOSE (test code = 2217) 89 MG/DL BUN (test code = 2208) 13 MG/DL CREATININE (test code = 2214) 1.0 MG/DL eGFR AMER. (test cod e = 77775) 101 ML/MIN/1.73 eGFR NON- AMER. (test code = 32298) 83 ML/MIN/1.73 CALCULATED BUN/CREAT (test code = [...] code = 2219) 24 U/L Yuri KleinLIPID [id number] 00:00:00* Test Item Value Reference Range Interpretation Comme nts CHOLESTEROL (test code = 2210) 259 MG/DL TRIGLYCERIDES (test code = 2232) 176 MG/DL HDL CHOLESTEROL (test code = 2220) 48 MG/DL CALCULATED LDL CHOL (test co de = 2237) 176 MG/DL RISK RATIO LDL/HDL (test cod e = 2238) 3.66 RATIO Yuri KleinCBC W/AUTO [id number] 00:00:00* Test Item Value Reference Range Interpretation [...] code = 1015) 198 K/UL Yuri KleinHEMOGLOBIN [id number] 00:00:00* Test Item Value Reference Range Interpretation Comme [facility] HEMOGLOBIN A1c (test code = 49292) 5.8 % Yuri KleinTHYROID II PROFILE (T3U, T4, T7, TSH)2015-04-23 00:00:00* Test Item Value Reference Range Interpretation Comme nts T3 UPTAKE (test code = 2817) 28.4 % T4 (THYROXINE) (test code = 2819) 7.5 UG/DL CALCULATED T7 (FTI) (test co de = 2820) 2.13 TSH (test code = 2821) 2.8 UIU/ML Yuri KleinCOMPREHENSIVE METABOLIC [id number] 00:00:00* Test Item Value Reference Range Interpretation Comme nts GLUCOSE (test code = 2217) 89 MG/DL BUN (test code = 2208) 13 MG/DL CREATININE (test code = 2214) 1.0 MG/DL eGFR AMER. (test cod e = 91458) 101 ML/MIN/1.73 eGFR NON- AMER. (test code = 17459) 83 ML/MIN/1.73 CALCULATED BUN/CREAT (test code = [...] = 2219) 24 U/L Yuri Beverly ErnieLIPID [id number] 00:00:00* Test Item Value Reference Range Interpretation Comme nts CHOLESTEROL (test code = 2210) 259 MG/DL TRIGLYCERIDES (test code = 2232) 176 MG/DL HDL CHOLESTEROL (test code = 2220) 48 MG/DL CALCULATED LDL CHOL (test co de = 2237) 176 MG/DL RISK RATIO LDL/HDL (test cod e = 2238) 3.66 RATIO Yuri Siria ErnieCBC W/AUTO [id number] 00:00:00* Test Item Value Reference Range Interpretation [...] = 1015) 198 K/UL Yuri Siria ErnieHEMOGLOBIN [id number] 00:00:00* Test Item Value Reference Range Interpretation Comme [facility] HEMOGLOBIN A1c (test code = 47882) 5.8 % Yuri KleinTHYROID II PROFILE (T3U, T4, T7, TSH)2015-04-23 00:00:00* Test Item Value Reference Range Interpretation Comme nts T3 UPTAKE (test code = 2817) 28.4 % T4 (THYROXINE) (test code = 2819) 7.5 UG/DL CALCULATED T7 (FTI) (test co de = 2820) 2.13 TSH (test code = 2821) 2.8 UIU/ML Yuri KleinCOMPREHENSIVE METABOLIC [id number] 00:00:00* Test Item Value Reference Range Interpretation Comme nts GLUCOSE (test code = 2217) 89 MG/DL BUN (test code = 2208) 13 MG/DL CREATININE (test code = 2214) 1.0 MG/DL eGFR AMER. (test cod e = 34718) 101 ML/MIN/1.73 eGFR NON- AMER. (test code = 10334) 83 ML/MIN/1.73 CALCULATED BUN/CREAT (test code = [...] code = 2219) 24 U/L Yuri KleinLIPID [id number] 00:00:00* Test Item Value Reference Range Interpretation Comme nts CHOLESTEROL (test code = 2210) 259 MG/DL TRIGLYCERIDES (test code = 2232) 176 MG/DL HDL CHOLESTEROL (test code = 2220) 48 MG/DL CALCULATED LDL CHOL (test co de = 2237) 176 MG/DL RISK RATIO LDL/HDL (test cod e = 2238) 3.66 RATIO Yuri KleinCBC W/AUTO [id number] 00:00:00* Test Item Value Reference Range Interpretation [...]
--- NOTE | 2024-12-07 18:25 | EDPHYS ---
Physician Documentation [facility] Name: Kostas Castelan Age: 49 yrs Sex: Male : 1975 Arrival Date: 12/07/2024 Time: 17:12 Bed 9 Private MD: ED Physician Deepak Gonzalez HPI: 12/07 18:22 This 49 yrs old Male presents to ER via Ambulatory with complaints of Shoulder kb Pain. 18:22 Pt is a 49 year old male who presents for pain to right shoulder muscle that started kb about 2 weeks ago after a toradol injection. Pt states the pain is intermittent and it is difficult to lift things. Denies any other injury or trauma. . Historical: - Allergies: 17:33 No Known Allergies; tm6 - PMHx: 17:33 HTN; DM2; tm6 - PSHx: 17:33 None; tm6 - Immunization history:: Flu vaccine is not up to date. - Infectious Disease History:: Denies. - Social history:: Smoking status: Patient denies any tobacco usage or history of. ROS: 18:20 Constitutional: As per HPI kb Exam: 18:20 Constitutional: This is a well developed, well nourished patient who is awake, alert, kb and in no acute distress. Head/Face: Normocephalic, atraumatic. ENT: Moist Mucous membranes Cardiovascular: Regular rate Respiratory: Respirations even and unlabored. No increased work of breathing. Talking in full sentences Skin: Warm, dry with normal turgor. Normal color. MS/ Extremity: Pulses equal, no cyanosis. Neurovascular intact. Full, normal range of motion. Neuro: Awake and alert, GCS 15, oriented to person, place, time, and situation. Vital Signs: 17:29 BP 123 / 97; Pulse 111; Resp 19; Temp 98.6(O); Pulse Ox 98% on R/A; MAP 107 mmHg; tm6 17:33 Weight 82.55 kg; Height 5 ft. 9 in. ; Pain 9/10; tm6 17:33 Body Mass Index 26.88 (82.55 kg, 175.26 cm) tm6 17:33 Pain Scale: Adult tm6 MDM: 17:33 Medical Screening Exam initiated kb 18:20 Differential diagnosis: abscess, cellulitis, strain. Data reviewed: vital signs, nurses kb notes. Test considered but Not performed: X-ray: xray considered but pt has no bony tenderness, full rom. 18:23 Counseling: I had a detailed discussion with the patient and/or guardian regarding the kb historical points, exam findings, and any diagnostic results supporting the discharge/admit diagnosis, the need for outpatient follow up, a family practitioner, to return to the emergency department if symptoms worsen or persist or if there are any questions or concerns that arise at home. Refusal of service: The patient/guardian displays adequate decision making capability and despite a detailed discussion of alternatives, benefits, risks, and consequences refuses: us. ED course: No area of erythema, swelling, warmth, tenderness. Administered Medications: No medications were administered Disposition: 20:22 I was immediately available on-site in the Emergency Department for consultation in the ms3 care of the patient. Disposition Summary: 12/07/24 18:24 Discharge Ordered Notes: Location: Home Condition: Stable kb Diagnosis - Pain in right shoulder kb Followup: kb - With: Emergency Department - When: As needed - Reason: Worsening of condition Followup: kb - With: Private Physician - When: 2 - 3 days - Reason: Recheck today's complaints, Continuance of care, Re-evaluation by your physician Discharge Instructions: - Discharge Summary Sheet kb - Shoulder Pain, [id number] kb Forms: - Medication Reconciliation Form kb - Antibiotic Education kb - Prescription Opioid Use kb - Patient Portal Instructions kb - Leadership Thank You Letter kb Prescriptions: - Diclofenac Sodium 75 mg Oral tablet, delayed release (enteric coated) - take 1 tablet ORAL route 2 times per day As needed; 30 tablet; Refills: 0, kb Product Selection Permitted Signatures: Dispatcher [employer] EDYessenia Simpson, BOBJ DEVELOPER-C BOBJ DEVELOPER-Jose De Jesusb Deepak Gonzalez DO DO ms3 Rony Bruner, RN RN tm6 Corrections: (The following items were deleted from the chart) 18:30 17:33 [employer]+[id number].RAD.BRZ ordered. EDMS EDMS
--- NOTE | 2024-12-07 18:25 | ER ---
Nurse's Notes [facility] Name: Kostas Castelan Age: 49 yrs Sex: Male : 1975 Arrival Date: 12/07/2024 Time: 17:12 Bed 9 Private MD: Diagnosis: Pain in right shoulder Presentation: 12/07 17:30 Chief complaint: Patient states: left shoulder pain since 11/28/24. I came here to ER, tm6 they gave me a shot but it has made it hurt more. Coronavirus screen: Client denies travel out of the [place] in the last 14 days. Ebola Screen: Patient negative for fever greater than or equal to 101.5 degrees Fahrenheit, and additional compatible Ebola Virus Disease symptoms Patient denies exposure to infectious person. Patient denies travel to an Ebola-affected area in the 21 days before illness onset. No symptoms or risks identified at this time. Initial Sepsis Screen: Does the patient meet any 2 criteria? HR > 90 bpm. Does the patient have a suspected source of infection? No. Patient's initial sepsis screen is negative. Risk Assessment: Do you want to hurt yourself or someone else? Patient reports no desire to harm self or others. Onset of symptoms was November 28, 2024. 17:30 Method Of Arrival: Ambulatory tm6 17:30 Acuity: ANA MARIA 4 tm6 Triage Assessment: 17:34 General: Appears in no apparent distress. Behavior is calm, cooperative. Pain: tm6 Complains of pain in left scapular area, anterior aspect of left shoulder and posterior aspect of left shoulder Pain currently is 8 out of 10 on a pain scale. EENT: No signs and/or symptoms were reported regarding the EENT system. Neuro: Level of Consciousness is awake, alert, obeys commands, Oriented to person, place, time, situation. Cardiovascular: Patient's skin is warm and dry. Respiratory: Airway is patent Respiratory effort is even, unlabored, Respiratory pattern is regular, symmetrical. GI: No signs and/or symptoms were reported involving the gastrointestinal system. Abdomen is flat, non-distended. : No signs and/or symptoms were reported regarding the genitourinary system. Derm: No signs and/or symptoms reported regarding the dermatologic system. Musculoskeletal: Reports pain in left scapular area, anterior aspect of left shoulder and posterior aspect of left shoulder Pain is 8 out of 10 on a pain scale. Historical: - Allergies: 17:33 No Known Allergies; tm6 - PMHx: 17:33 HTN; DM2; tm6 - PSHx: 17:33 None; tm6 - Immunization history:: Flu vaccine is not up to date. - Infectious Disease History:: Denies. - Social history:: Smoking status: Patient denies any tobacco usage or history of. Screenin:41 [facility] ED Fall Risk Assessment (Adult) History of falling in the last 3 months, jb4 including since admission No falls in past 3 months (0 pts) Confusion or Disorientation No (0 pts) Intoxicated or Sedated No (0 pts) Impaired Gait No (0 pts) Mobility Assist Device Used No (0 pt) Altered Elimination No (0 pt) Score/Fall Risk Level 0 - 2 = Low Risk. Abuse screen: Denies threats or abuse. Nutritional screening: No deficits noted. Tuberculosis screening: No symptoms or risk factors identified. Assessment: 18:41 General: Appears in no apparent distress. comfortable, Behavior is calm, cooperative, jb4 appropriate for age. Pain: Complains of pain in left scapular area Pain radiates to left arm Pain currently is 0 out of 10 on a pain scale. at worst was 9 out of 10 on a pain scale. Neuro: Level of Consciousness is awake, alert, obeys commands, Oriented to person, place, time, situation. Cardiovascular: Patient's skin is warm and dry. Respiratory: Airway is patent Respiratory effort is even, unlabored, Respiratory pattern is regular, symmetrical. Derm: Skin is intact, Skin is pink, warm \T\ dry. Musculoskeletal: Circulation, motion, and sensation intact. Range of motion: intact in all extremities. Vital Signs: 17:29 BP 123 / 97; Pulse 111; Resp 19; Temp 98.6(O); Pulse Ox 98% on R/A; MAP 107 mmHg; tm6 17:33 Weight 82.55 kg; Height 5 ft. 9 in. ; Pain 9/10; tm6 17:33 Body Mass Index 26.88 (82.55 kg, 175.26 cm) tm6 17:33 Pain Scale: Adult tm6 ED Course: 17:17 Patient arrived in ED. mr 17:32 Yessenia Appiah FNP-C is PHCP. kb 17:32 Deepak Gonzalez DO is Attending Physician. kb 17:33 Triage completed. tm6 17:33 Arm band placed on right wrist. tm6 18:41 Julio Cesar Turner, RN is Primary Nurse. jb4 18:41 Patient has correct armband on for positive identification. Bed in low position. Call jb4 light in reach. Side rails up X 1. Provided Education on: discharge instructions.. 18:41 No provider procedures requiring assistance completed. Patient did not have IV access jb4 during this emergency room visit. Administered Medications: No medications were administered Medication: 18:41 VIS not applicable for this client. jb4 Outcome: 18:24 Discharge ordered by MD. kb 18:41 Discharged to home ambulatory, jb4 18:41 Condition: stable 18:41 Discharge instructions given to patient, Instructed on discharge instructions, follow up and referral plans. medication usage, Demonstrated understanding of instructions, follow-up care, medications, Prescriptions given X 1, 18:43 Patient left the ED. jb4 Signatures: Yessenia Appiah, ACETYLENE PLANT OPERATOR-C ACETYLENE PLANT OPERATOR-Silvia Jenkins, Reg Reg mr Julio Cesar Turner, RN RN jb4 Rony Bruner, LEFTY RN tm6
[2024-12-07 19:26] VITALS: BP 123/97; TEMP 98.6; O2SAT 98
== END 2024-12-07 18:43 | disposition home or self-care (01) ==
LOC: ER 17:12
DX: M25.511 Pain in right shoulder (principal)
CPT/HCPCS: 99283